=== PATIENT | female | born 1995 | race Caucasian/White ===

== ENCOUNTER 2016-06-12 08:24 | Emergency (ER) | payer OTHER ==
[~2016-06-12] VITALS: Ht 162.6 cm; Wt 139.3 kg
[~2016-06-12 08:24] MED LIST: ALBUTEROL 3 ML3 ML INH; AMBIEN (MONOGRAP5 MG PO; ARTHROTEC 75 MG1 TAB PO; BACTRIM DS 8001 TAB PO; BENADRYL 50 MG50 MG PO; BENTYL 10 MG CA10 MG PO; BENTYL20 MG PO; CIPRO 500MG TA500 MG PO; CIPRODEX OTIC7.5 ML OT; CLONAZEPAM0.5 M2 PO; CLONAZEPAM0.5 MG PO; COMPAZINE10 MG PO; CYMBALTA60 MG PO; DICLOFENAC SODI75 M2 PO; DILAUDID2 MG PO; ENBREL50 MG/1 ML SC; ENBREL50 MG/ML IM; ENDOCET 325 MG-1 TA1 PO; FIORICET 325 MG1 TAB PO; FLEXERIL10 MG PO; FLUOXETINE HCL20 MG PO; FOLIC ACID 1 MG PO; FOLIC ACID1 M1 PO; GOOD SENSE IBU200 MG PO; HUMIRA PEN40 MG/0.8 SC; HYDROCODONE/ACE1 TA1 PO; HYDROXYZINE HCL25 MG PO; IBUPROFEN600 M1 PO; IBUPROFEN800 M1 PO; IBUPROFEN800 MG PO; IMITREX50 MG PO; KETOROLAC TROME10 M1 PO; LEVAQUIN750 M1 PO; LEVSIN0.125 M1 PO; LOTRISONE CREAM15 G1 TOP; MACROBID100 MG PO; MEDROL DOSEPAK1 PAC PO; MEDROL4 M2 PO; METHOTREXATE2.5 M2 PO; MOBIC 15MG15 MG PO; MOBIC15 M1 PO; MOTRIN800 MG PO; NEXPLANON68 MG; NORCO 325 MG-51 TAB PO; NUVARING1 ICR VG; OXCARBAZEPINE150 MG PO; OXCARBAZEPINE300 MG PO; OXYCODONE HCL5 M1 PO; PANTOPRAZOLE SO40 MG PO; PERCOCET 325 MG1 TA2 PO; PERCOCET 5-3251 EACH PO; PHENERGAN12.5 M1 PO; PHENERGAN25 M1 PO; PHENERGAN25 MG PO; PREDNISONE10 MG PO; PREDNISONE50 MG PO; PRILOSEC 20MG C20 MG PO; PROAIR HFA8.5 GM INH; PROMETHAZINE25 M1 PO; PROTONIX40 M3 PO; PROZAC40 M1 PO; PROZAC40 MG PO; PYRIDIUM100 MG PO; QVAR0.04 MG/Ac INH; QVAR0.08 MG/Ac INH; QVAR8.7 G1 INH; REGLAN10 MG PO; SINGULAIR10 M1 PO; SUPRAX400 M1 PO; TESSALON PERLE100 MG PO; TOPAMAX25 MG PO; TOPIRAMATE25 MG; TRAMADOL HCL50 M1 PO; TRAZODONE HCL100 M1 PO; TRAZODONE HCL150 MG PO; TRAZODONE100 MG; TRAZODONE150 MG PO; TRILEPTAL 150M150 MG PO; TRILEPTAL300 M1 PO; TYLENOL #31 TAB PO; ULTRAM50 M1 PO; VIBRAMYCIN100 MG PO; VICODIN 300 MG-1 TAB PO; ZITHROMAX Z-PA250 M1 PO; ZOFRAN 4 MG TABL4 MG PO; ZOFRAN ODT4 M1 SL; ZOFRAN ODT4 MG PO; ZOFRAN ODT4 MG SL; ZOFRAN4 M1 PO; ZOFRAN4 M1 SL; ZOFRAN4 M2 PO; ZOFRAN4 MG PO
--- NOTE | 2016-06-12 08:52 | ED INFLUENZA/URI COMPLAINT ---
History of Present Illness General Chief Complaint: Upper Respiratory Sx/Fever Stated Complaint: NO RELIEF OF BRONCHITIS Source: patient Exam Limitations: no limitations Vital Signs & Intake/Output Vital Signs & Intake/Output Vital Signs Date Time Temp Pulse Resp B/P Pulse O2 O2 Flow FiO2 Ox Delivery Rate 06/12 1050 97.1 84 20 112/65 96 Room Air 06/12 1008 96 06/12 0829 97.7 96 16 139/85 95 Room Air Allergies Coded Allergies: cefaclor (Severe, ANAPHYLAXIS 03/25/16) Sulfa (Sulfonamide Antibiotics) (THROAT CLOSURE 03/25/16) Reconcile Medications Adalimumab (Humira Pen) 40 MG/0.8 ML PEN.IJ.KIT 1 SYR SC Q2W UNKNOWN ( Reported) Albuterol Sulfate (Proair Hfa) 0.09 MG/Actuation BARBARA 2 PUFF INH PRN ASTHMA ( Reported) Beclomethasone Dipropionate (Qvar) 0.08 MG/Actuation AER 2 PUFF INH BID ASTHMA (Reported) Clindamycin HCl 300 MG CAPSULE 1 CAP PO TID mastitis Clonazepam 0.5 MG TAB 1 TAB PO TID PRN ANXIETY (Reported) Doxycycline Hyclate (Vibramycin) 100 MG CAPSULE 1 CAP PO BID IFN FLUOXETINE HCL (Fluoxetine Hydrochloride) 40 MG CAP 1 CAP PO QAM MENTAL HEALTH (Reported) Folic Acid 1 MG TABLET 1 TAB PO BID SUPPLEMENT (Reported) Hyoscyamine (Levsin) 0.125 MG TABLET 1-2 TAB PO Q6P PRN ABDOMINAL CRAMPS Ibuprofen 800 MG TABLET 1 TAB PO TID PRN pain Ketorolac Tromethamine 10 MG TABLET 1 TAB PO Q6P PRN pain Lotrisone (Lotrisone Cream) 1 %-0.05 % CREAM..G. 1 JUANITA TOP QAMPM RASH apply to affected area(s) Meloxicam (Mobic) 15 MG TABLET 1 TAB PO DAILY PRN PAIN METHOTREXATE SODIUM (Methotrexate) 2.5 MG TAB 5 TAB PO QTUES LUPUS (Reported) Methylprednisolone. (Medrol) 4 MG TAB.DS.PK 1 DP PO AD INFLAMMATION 6 on day 1 then reduce by one tablet daily until gone Methylprednisolone. (Medrol) 4 MG TAB.DS.PK 1 DP PO AD PARESTHEISA 6 on day 1 then reduce by one tablet daily until gone Montelukast Sodium (Singulair) 10 MG TAB 1 TAB PO DAILY ASTHMA (Reported) Ondansetron (Zofran Odt) 4 MG TAB.RAPDIS 1 TAB PO Q6 PRN NAUSEA Ondansetron HCl (Zofran) 4 MG TABLET 1 TAB PO Q6-8P PRN nausea Oxcarbazepine 300 MG TAB 1 TAB PO BID MENTAL HEALTH (Reported) Oxycodone HCl 5 MG TABLET 1 TAB PO TID PRN pain Oxycodone HCl/Acetaminophen (Percocet 5-325 MG Tablet) 1 EACH TABLET 1 TAB PO TID PRN breakthrough pain Pantoprazole Sodium (Protonix) 40 MG TAB 1 TAB PO DAILY GI (Reported) Robitussin AC (Guaifenesin-Codeine Syrup) 200 MG-20 MG/10 ML LIQUID 10 ML PO Q6 PRN COUGH Tramadol HCl (Ultram) 50 MG TABLET 1-2 TAB PO TID PRN PAIN THIRTY...[id number] Tramadol HCl 50 MG TABLET 1 TAB PO BIDP PRN pain Tramadol HCl 50 MG TABLET 1 TAB PO TID PRN breakthrough pain TRAZODONE HCL (Trazodone HCl) 100 MG TAB 1-2 TAB PO QPM PRN SLEEP (Reported) Triage Note: PT STATES SHE SAW HER PCP 3 DAYS AGO AND WAS TOLD SHE HAS BRONCHITIS, CALLED HER PCP TODAY AND THEY TOLD HER TO COME TO ED TO R/O PNEMONIA Triage Nurses Notes Reviewed? yes Onset: Gradual Timing: recent history Severity: moderate No Modifying Factors: none Associated Symptoms: cough, shortness of breath : No Patient currently breastfeeds: No HPI: This is a 21-year-old female seen in the emergency department yesterday diagnosed with bronchitis and started on medications 3 days ago who presents to the ER with chief complaint of persistent shortness of breath and cough. She states that she feels slightly weak. She called her doctor and told the she wasn't feeling better and they advised her to come to the ED for evaluation. Past History Travel History Traveled to [place] past 21 day No Medical History Any Pertinent Medical History? 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 No Review of Systems Review of Systems Constitutional: Denies: chills, fever. EENTM: Reports: no symptoms. Respiratory: Reports: cough, short of breath, sputum production. Cardiovascular: Denies: chest pain. GI: Denies: abdominal pain. Genitourinary: Reports: no symptoms. Musculoskeletal: Reports: no symptoms. Skin: Reports: no symptoms. Neurological/Psychological: Reports: no symptoms. Hematologic/Endocrine: Denies: bruising, bleeding, polyuria, polydipsia. Immunologic/Allergic: Denies: splenectomy. All Other Systems: Reviewed and Negative Physical Exam Physical Exam General Appearance: well developed/nourished, alert, awake, anxious, mild distress, obese Head: atraumatic, normal appearance Eyes: Bilateral: normal appearance, PERRL, EOMI. Ears, Nose, Throat: normal ENT inspection, hearing grossly normal, Tympanic normal, pharynx normal Neck: normal inspection, supple, full range of motion Respiratory: chest non-tender, no respiratory distress, decreased breath sounds, wheezing Cardiovascular: regular rate/rhythm Peripheral Pulses: 2+ radial (R), 2+ radial (L) Gastrointestinal: soft, non-tender Neurologic/Psych: no motor/sensory deficits, awake, alert, oriented x 3 Skin: intact, normal color, warm/dry Core Measures Severe Sepsis Present: No Septic Shock Present: No Progress Differential Diagnosis: influenza, pneumonia, pharyngitis, sinusitis Plan of Care: Orders Procedure Date/time Status RT ED ORDERS 06/12 08 Active URINE 06/12 08 Complete Laboratory Tests 06/12/16 0951: Urine Test NEGATIVE duoneb, cxr ordered. odt zofran, im toradol ordered. (ABBE WU,RONI) Diagnostic Imaging: Viewed by Me: Radiology Read. Discussed w/RAD: Radiology Read. CXR Impression: EXAM TYPE: RAD - XRY-CHEST XRAY, PA AND LATERAL EXAMINATION: XR CHEST CLINICAL INFORMATION: Cough and green phlegm production. Evaluate for pneumonia. COMPARISON: 04/26/2015 TECHNIQUE: PA and lateral views of the chest were obtained. FINDINGS: Patient has a large body habitus. Lungs are symmetrically expanded and clear. There is no pulmonary consolidation, pleural effusion or hilar lymphadenopathy. No significant abnormality is noted involving the heart, lungs, mediastinum, or osseous thorax. IMPRESSION: No acute cardiopulmonary pathology. Initial ED EKG: none Departure Departure Time of Disposition: 1125 Disposition: HOME OR SELF CARE Condition: Stable Clinical Impression Primary Impression: Bronchitis Referrals: LUISA ORTEGA DO (PCP/Family) Referred to [facility] as new patient No Additional Instructions: CONTINUE YOUR ZPACK AND ALBUTEROL INHALERS. TAKE THE MEDROL DOSE PACK DIRECTED. FOLLOW UP WITH YOUR DOCTOR IN THE OFFICE. RETURN TO THE ER NEEDED. Departure Forms: Customer Survey General Discharge Information Prescriptions: Current Visit Scripts Methylprednisolone. (Medrol) 1 DP PO AD #1 DP 6 on day 1 then reduce by one tablet daily until gone Ondansetron (Zofran Odt) 1 TAB PO Q6 PRN NAUSEA #20 TAB Robitussin AC (Guaifenesin-Codeine Syrup) 10 ML PO Q6 PRN COUGH #150 ML
[2016-06-12 10:50] VITALS: BP 112/65
--- NOTE | 2016-06-12 11:02 | RADIOLOGY REPORT ---
EXAMINATION: XR CHEST CLINICAL INFORMATION: Cough and green phlegm production. Evaluate for pneumonia. COMPARISON: 04/26/2015 TECHNIQUE: PA and lateral views of the chest were obtained. FINDINGS: Patient has a large body habitus. Lungs are symmetrically expanded and clear. There is no pulmonary consolidation, pleural effusion or hilar lymphadenopathy. No significant abnormality is noted involving the heart, lungs, mediastinum, or osseous thorax. IMPRESSION: No acute cardiopulmonary pathology.
[2016-06-12] MEDS ORDERED: MEDROL4 M2 PO (11:28)
[2016-06-12] MEDS ORDERED: GUAIFENESIN-COD10 ML PO (11:36)
[2016-06-12] MEDS ORDERED: ZOFRAN ODT4 M1 PO (11:36)
== END 2016-06-12 11:39 ==
LOC: ERH 08:24
DX: J40 Bronchitis, not specified as acute or chronic (principal)
CPT/HCPCS: 1263; 81025; 96372; J1885; J3101

== ENCOUNTER 2016-06-20 18:44 | Emergency (ER) | payer OTHER ==
[~2016-06-20 18:44] MED LIST changes: +GUAIFENESIN-COD10 ML PO; +ZOFRAN ODT4 M1 PO
[2016-06-20 19:13] VITALS: BP 140/78
--- NOTE | 2016-06-20 19:15 | ED SKIN/ALLERGY COMPLAINT ---
History of Present Illness General Chief Complaint: General Adult Stated Complaint: PER PT "PAIN IN L BREAST/ DISCHARGE" X 2 DAYS Source: patient, old records Exam Limitations: no limitations Vital Signs & Intake/Output Vital Signs & Intake/Output Vital Signs Date Time Temp Pulse Resp B/P Pulse O2 O2 Flow FiO2 Ox Delivery Rate 06/20 1912 97.2 73 22 140/78 97 Allergies Coded Allergies: cefaclor (Severe, ANAPHYLAXIS 03/25/16) Sulfa (Sulfonamide Antibiotics) (THROAT CLOSURE 03/25/16) Reconcile Medications Adalimumab (Humira Pen) 40 MG/0.8 ML PEN.IJ.KIT 1 SYR SC Q2W UNKNOWN ( Reported) Albuterol Sulfate (Proair Hfa) 0.09 MG/Actuation BARBARA 2 PUFF INH PRN ASTHMA ( Reported) Beclomethasone Dipropionate (Qvar) 0.08 MG/Actuation AER 2 PUFF INH BID ASTHMA (Reported) Clindamycin HCl 300 MG CAPSULE 1 CAP PO TID mastitis Clonazepam 0.5 MG TAB 1 TAB PO TID PRN ANXIETY (Reported) Doxycycline Hyclate (Vibramycin) 100 MG CAPSULE 1 CAP PO BID IFN FLUOXETINE HCL (Fluoxetine Hydrochloride) 40 MG CAP 1 CAP PO QAM MENTAL HEALTH (Reported) Folic Acid 1 MG TABLET 1 TAB PO BID SUPPLEMENT (Reported) Hyoscyamine (Levsin) 0.125 MG TABLET 1-2 TAB PO Q6P PRN ABDOMINAL CRAMPS Ibuprofen 800 MG TABLET 1 TAB PO TID PRN pain Ketorolac Tromethamine 10 MG TABLET 1 TAB PO Q6P PRN pain Lotrisone (Lotrisone Cream) 1 %-0.05 % CREAM..G. 1 JUANITA TOP QAMPM RASH apply to affected area(s) Meloxicam (Mobic) 15 MG TABLET 1 TAB PO DAILY PRN PAIN METHOTREXATE SODIUM (Methotrexate) 2.5 MG TAB 5 TAB PO QTUES LUPUS (Reported) Methylprednisolone. (Medrol) 4 MG TAB.DS.PK 1 DP PO AD INFLAMMATION 6 on day 1 then reduce by one tablet daily until gone Methylprednisolone. (Medrol) 4 MG TAB.DS.PK 1 DP PO AD PARESTHEISA 6 on day 1 then reduce by one tablet daily until gone Montelukast Sodium (Singulair) 10 MG TAB 1 TAB PO DAILY ASTHMA (Reported) Ondansetron (Zofran Odt) 4 MG TAB.RAPDIS 1 TAB PO Q6 PRN NAUSEA Ondansetron HCl (Zofran) 4 MG TABLET 1 TAB PO Q6-8P PRN nausea Oxcarbazepine 300 MG TAB 1 TAB PO BID MENTAL HEALTH (Reported) Oxycodone HCl 5 MG TABLET 1 TAB PO TID PRN pain Oxycodone HCl/Acetaminophen (Percocet 5-325 MG Tablet) 1 EACH TABLET 1 TAB PO TID PRN breakthrough pain Pantoprazole Sodium (Protonix) 40 MG TAB 1 TAB PO DAILY GI (Reported) Robitussin AC (Guaifenesin-Codeine Syrup) 200 MG-20 MG/10 ML LIQUID 10 ML PO Q6 PRN COUGH Tramadol HCl (Ultram) 50 MG TABLET 1-2 TAB PO TID PRN PAIN THIRTY...[id number] Tramadol HCl 50 MG TABLET 1 TAB PO BIDP PRN pain Tramadol HCl 50 MG TABLET 1 TAB PO TID PRN breakthrough pain TRAZODONE HCL (Trazodone HCl) 100 MG TAB 1-2 TAB PO QPM PRN SLEEP (Reported) Triage Note: PER PT DRAINAGE REDNESS AND WARMTH TO L BREAST, TENDER TO PALPATION X 2 DAYS, NO CHANCE OF LMP 2 WEEKS AGO. Triage Nurses Notes Reviewed? yes Onset: Abrupt Duration: day(s): (4), constant Timing: recent history Severity: mild, moderate Severity Numbers: 4 Possible Factors: no cause identified Associated Symptoms: denies : No Patient currently breastfeeds: No HPI: 21-year-old female presents emergency room complaining of left breast swelling redness and pain associated with discharge from her nipple for the past 4 days. Symptoms began progressing worse. She is not actively breast-feeding no fever no chills she has not taken anything for her symptoms. Pain is worse with light palpation. She is also carefully symptoms until that today. No recent trauma or injury. she denies any bleeding she denies feeling any mass or nodules in her breasts. She denies any right breast symptoms. The patient herself denies personal history or family history of breast cancer (JUDY BAKER,MAI) Past History Travel History Traveled to [place] past 21 day No Medical History Any Pertinent Medical History? 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 No (MAI KIRBY) Review of Systems Review of Systems Constitutional: Reports: see HPI. All Other Systems: Reviewed and Negative Comments Review of systems: See HPI, All other systems negative. Constitutional, no chills no fever, no malaise HEENT: no sore throat no congestion, no ear pain Cardiovascular: No chest pain , no palpitation Skin, see hpi Respiratory: No dyspnea no cough no sputum GI: No nausea no vomiting, no diarrhea, : No dysuria Muscle skeletal: No joint pain, no joint swelling, no back pain, no neck pain, Neurologic: , no headache Psych: No stress Heme/endocrine: No bruising no bleeding Immunology: No lymphadenopathy (MAI KIRBY) Physical Exam Physical Exam General Appearance: well developed/nourished, alert, awake Comments: Well-developed well-nourished patient in no apparent distress. HEENT: Atraumatic, extraocular motion intact Neck: Supple, FROM Back: FROM Cardiovascular: Regular rate and rhythms no murmurs rubs or gallops, Respiratory: Chest nontender.There were no bony deformities, no asymmetry. No respiratory distress. Patient speaking in full complete sentences. Breath sounds clear to auscultation bilaterally: NO W/R/R Extremities: full range of motion Neuro: Alert and oriented x3 Skin: Warm & dry; mild erythema surrounding the left areola there is no induration no fluctuance no discharge elicited with palpation mild tenderness over the left breast Psych: Mood affect normal, normal memory normal judgment. (MAI KIRBY) Progress Differential Diagnosis: abscess/cellulitis, contact dermatitis, drug reaction, erythema multiforme, mastitis Plan of Care: Current Medications Sig/Butch Start time Last Medication Dose Stop Time Status Admin Clindamycin 300 MG ONCE ONE 06/20 1929 UNVr (Cleocin 150MG Cap) 06/20 1930 Tramadol HCl 50 MG ONCE ONE 06/20 1929 UNVr (Ultram) 06/20 1930 Patient medicated clindamycin and tramadol she'll follow-up with her primary care or carton forming machine adjuster least week for wound check. She'll return anytime sooner with any concerns she feels comfortable plan clear discharge (MAI KIRBY) Departure Departure Time of Disposition: 1919 Disposition: HOME OR SELF CARE Condition: Stable Clinical Impression Primary Impression: Mastitis Referrals: LUISA ORTEGA DO (PCP/Family) Additional Instructions: Follow-up with your primary care physician or carton forming machine adjuster this week for wound check. Tramadol for breakthrough pain clindamycin as directed these prescriptions were sent to your [facility] pharmacy. Departure Forms: Customer Survey General Discharge Information Prescriptions: Current Visit Scripts Clindamycin HCl 1 CAP PO TID #30 CAP Tramadol HCl 1 TAB PO TID PRN breakthrough pain #10 TAB (MAI KIRBY) PA/DIRECT SERVICE WORKER Co-Sign Statement Statement: ED Attending supervision documentation- [] I saw and evaluated the patient. I have also reviewed all the pertinent lab results and diagnostic results. I agree with the findings and the plan of care as documented in the PA's/DIRECT SERVICE WORKER's documentation. [X] I have reviewed the ED Record and agree with the PA's/DIRECT SERVICE WORKER's documentation. [] Additions or exceptions (if any) to the PAs/DIRECT SERVICE WORKER's note and plan are summarized below: [] (GERMÁN WU,JOSELYN Caro)
[2016-06-20] MEDS ORDERED: TRAMADOL HCL50 M1 PO (19:21)
[2016-06-20] MEDS ORDERED: CLINDAMYCIN HC300 M1 PO (19:21)
== END 2016-06-20 19:36 ==
LOC: ERH 18:44
DX: N61.0 Mastitis without abscess (principal)

== ENCOUNTER 2016-06-22 17:23 | Emergency (ER) | payer OTHER ==
[~2016-06-22] VITALS: Ht 162.6 cm; Wt 137.9 kg
[~2016-06-22 17:23] MED LIST changes: +CLINDAMYCIN HC300 M1 PO
--- NOTE | 2016-06-22 17:57 | ED GI/GU/ABDOMINAL COMPLAINT ---
History of Present Illness General Chief Complaint: Upper Respiratory Sx/Fever Stated Complaint: NAUSEA AND VOMITTING Source: patient Exam Limitations: no limitations Allergies Coded Allergies: cefaclor (Severe, ANAPHYLAXIS 03/25/16) Sulfa (Sulfonamide Antibiotics) (THROAT CLOSURE 03/25/16) Triage Note: PT HAVING N/V FOR A COUPLE OF DAYS WITH STOMACH PAIN Triage Nurses Notes Reviewed? yes ? N Is pt currently ? No HPI: This patient is a 21-year-old female with a past medical history including lupus , multiple ovarian cysts requiring surgery, and recent diagnosis of mastitis currently being treated with outpatient clindamycin who presented to the emergency department today for evaluation of abdominal pain and nausea vomiting. The patient reported that she was seen here in the emergency department on Monday and was diagnosed with mastitis. She was prescribed clindamycin. She took one dose of clindamycin Monday night. The patient reported that prior to her diagnosis on Monday, she was feeling nauseous and, "not well." However, on Monday she started feeling worse with increased nausea. She reported that she has vomited twice over the last 2 days. She reported that she has not been able to keep any food or drink down. She has been unable to take any more doses of her vacation. She has not been able to take any medication for pain. The patient has been having 8 out of 10 to 10 out of 10 abdominal pain, "over my belly." The patient denied any radiation of the pain. She reported that the pain is sharp and cramping. The patient reported intermittent fevers up to 101 F. However, she reported that she does get intermittent fevers due to her lupus. The patient reported that she recently lost approximately 22 pounds since she has been on a diet prior to a gastric bypass that is scheduled for her at the end of July. The patient reported that she last urinated yesterday, but denied any urinary burning, urgency, frequency, or blood in the urine. She denied any constipation or diarrhea. Patient denied any chest pain. She reported that it does feel difficult to take a deep breath. She has history of asthma, but denied any wheezing or shortness of breath. (BERTIN MANZO,REJI) Vital Signs & Intake/Output Vital Signs & Intake/Output ED Intake and Output 06/23 0000 06/22 1200 Intake Total 1000 Output Total Balance 1000 Intake, IV 1000 Patient 304 lb Weight Reconcile Medications Adalimumab (Humira Pen) 40 MG/0.8 ML PEN.IJ.KIT 1 SYR SC Q2W UNKNOWN ( Reported) Albuterol Sulfate (Proair Hfa) 0.09 MG/Actuation BARBARA 2 PUFF INH PRN ASTHMA ( Reported) Beclomethasone Dipropionate (Qvar) 0.08 MG/Actuation AER 2 PUFF INH BID ASTHMA (Reported) Clindamycin HCl 300 MG CAPSULE 1 CAP PO TID mastitis Clonazepam 0.5 MG TAB 1 TAB PO TID PRN ANXIETY (Reported) Doxycycline Hyclate (Vibramycin) 100 MG CAPSULE 1 CAP PO BID IFN FLUOXETINE HCL (Fluoxetine Hydrochloride) 40 MG CAP 1 CAP PO QAM MENTAL HEALTH (Reported) Folic Acid 1 MG TABLET 1 TAB PO BID SUPPLEMENT (Reported) Hyoscyamine (Levsin) 0.125 MG TABLET 1-2 TAB PO Q6P PRN ABDOMINAL CRAMPS Ibuprofen 800 MG TABLET 1 TAB PO TID PRN pain Ketorolac Tromethamine 10 MG TABLET 1 TAB PO Q6P PRN pain Lotrisone (Lotrisone Cream) 1 %-0.05 % CREAM..G. 1 JUANITA TOP QAMPM RASH apply to affected area(s) Meloxicam (Mobic) 15 MG TABLET 1 TAB PO DAILY PRN PAIN METHOTREXATE SODIUM (Methotrexate) 2.5 MG TAB 5 TAB PO QTUES LUPUS (Reported) Methylprednisolone. (Medrol) 4 MG TAB.DS.PK 1 DP PO AD INFLAMMATION 6 on day 1 then reduce by one tablet daily until gone Methylprednisolone. (Medrol) 4 MG TAB.DS.PK 1 DP PO AD PARESTHEISA 6 on day 1 then reduce by one tablet daily until gone Metoclopramide HCl (Reglan) 10 MG TABLET 1 TAB PO 4 TIMES/DAY PRN nausea 30 minutes before meals and bedtime Montelukast Sodium (Singulair) 10 MG TAB 1 TAB PO DAILY ASTHMA (Reported) Nitrofurantoin Monohyd/M-Cryst (Macrobid 100 MG Capsule) 100 MG CAPSULE 1 CAP PO BID uti with food Ondansetron (Zofran Odt) 4 MG TAB.RAPDIS 1 TAB PO Q6 PRN NAUSEA Ondansetron HCl (Zofran) 4 MG TABLET 1 TAB PO Q6-8P PRN nausea Oseltamivir Phosphate (Tamiflu) 30 MG CAPSULE 2 CAP PO BID influenza a Oxcarbazepine 300 MG TAB 1 TAB PO BID MENTAL HEALTH (Reported) Oxycodone HCl 5 MG TABLET 1 TAB PO TID PRN pain Oxycodone HCl/Acetaminophen (Percocet 5-325 MG Tablet) 1 EACH TABLET 1 TAB PO TID PRN breakthrough pain Pantoprazole Sodium (Protonix) 40 MG TAB 1 TAB PO DAILY GI (Reported) Robitussin AC (Guaifenesin-Codeine Syrup) 200 MG-20 MG/10 ML LIQUID 10 ML PO Q6 PRN COUGH Tramadol HCl (Ultram) 50 MG TABLET 1-2 TAB PO TID PRN PAIN THIRTY...[id number] Tramadol HCl 50 MG TABLET 1 TAB PO BIDP PRN pain Tramadol HCl 50 MG TABLET 1 TAB PO TID PRN breakthrough pain TRAZODONE HCL (Trazodone HCl) 100 MG TAB 1-2 TAB PO QPM PRN SLEEP (Reported) (GERMÁN WU,JOSELYN Caro) Past History Travel History Traveled to [place] past 21 day No Medical History Any Pertinent Medical History? see below for history Neurological: migraine EENT: L EYE BLIND Cardiovascular: NONE Respiratory: asthma Gastrointestinal: GERD Hepatic: NONE Renal: NONE Musculoskeletal: psoariatic arthritis, LUPUS MRSA IN WOUND Psychiatric: anxiety, depression Endocrine: NONE Blood Disorders: NONE Cancer(s): NONE LACE SEWER/Reproductive: OVARIAN CYST POLYCYSTIC OVARY SYNDROME History of MRSA: Yes History of VRE: No History of CDIFF: No Surgical History Surgical History: MULT ABD SX OVARIAN CYST L AXILLARY MOLE REMOVED Psychosocial History Who do you live with Mother Services at Home None What is your primary language Danish Tobacco Use: Never used ETOH Use: occasional use Illicit Drug Use: denies illicit drug use Family History Family History, If Any: FATHER FH: diabetes mellitus MOTHER FH: breast cancer Hx Contributory? No (REJI DENTON PA-C) Review of Systems Review of Systems Constitutional: Reports: see HPI. EENTM: Reports: no symptoms. Respiratory: Reports: see HPI. Cardiovascular: Reports: no symptoms. GI: Reports: see HPI. Genitourinary: Reports: no symptoms. Musculoskeletal: Reports: no symptoms. Skin: Reports: no symptoms. Neurological/Psychological: Reports: no symptoms. All Other Systems: Reviewed and Negative (REJI DENTON PA-C) Physical Exam Physical Exam Gastrointestinal: normal bowel sounds, soft, obese, nondistended, no organomegaly, no rebound or guarding, diffusely tender to palpation. negative rovsing sign, negative murphys sign, negative psoas sign Comments: Well-developed well-nourished person in no acute distress HEENT: Normal EENT exam, head normocephalic, moist mucous membranes Neck: Supple, no lymphadenopathy Back: Normal inspection. No CVA tenderness Cardiovascular: Regular rate and rhythm with no murmurs, rubs, or gallops Respiratory: Chest nontender. No respiratory distress. Breath sounds clear to auscultation bilaterally with no wheezes, rales, rhonchi. No diminished breath sounds Extremity: Normal and equal pulses Neuro: Alert oriented x3, cranial nerves II through XII grossly intact. Skin: No appreciable rash on exposed skin, skin is warm and dry. Psych: Mood and affect is normal Core Measures ACS in differential dx? No Severe Sepsis Present: No Septic Shock Present: No (REJI DENTON PA-C) Progress Differential Diagnosis: AMI, appendicitis, biliary colic, bowel obstruction, colon cancer, cholecystitis, diverticulitis, ectopic , endometritis, gastritis, hepatitis, ischemic bowel, inflamm bowel dis, intrauterine , kidney stone, ovarian cyst, ovarian torsion, pancreatitis, PID/cervicitis, PUD/ GERD, threatened AB, UTI/pyelo, influenza, medication reaction, c. diff, gastroenteritis Initial ED EKG: none Comments: 06/22/2016 7:56:23 PM: The patient still is reporting pain. Also nausea is returning. Updated patient on laboratory studies. Positive for influenza A. UTI based on urinalysis. (REJI DENTON PA-C) Plan of Care: Orders Procedure Date/time Status VIRAL CULTURE 06/22 1835 Active Departure Departure Disposition: HOME OR SELF CARE Condition: Stable Clinical Impression Primary Impression: UTI (urinary tract infection) Qualifiers: Urinary tract infection type: site unspecified Hematuria presence: without hematuria Qualified Code: N39.0 - Urinary tract infection, site not specified Secondary Impressions: Influenza A Referrals: LUISA ORTEGA DO (PCP/Family) Additional Instructions: Continue to take previously prescribed Clindamycin as directed. Take Macrobid as prescribed for UTI. Take Reglan as prescribed for nausea. Take Tamiflu as prescribed for influenza. Rest. Be sure to stay hydrated. Follow-up with primary care physician. Return for any worsening symptoms or concerns. Departure Forms: Customer Survey General Discharge Information Prescriptions: Current Visit Scripts Metoclopramide HCl (Reglan) 1 TAB PO 4 TIMES/DAY PRN nausea #16 TAB 30 minutes before meals and bedtime Nitrofurantoin Monohyd/M-Cryst (Macrobid 100 MG Capsule) 1 CAP PO BID #14 CAP with food Oseltamivir Phosphate (Tamiflu) 2 CAP PO BID #20 CAP (REJI DENTON PA-C) PA/SALON MANAGER Co-Sign Statement Statement: ED Attending supervision documentation- [] I saw and evaluated the patient. I have also reviewed all the pertinent lab results and diagnostic results. I agree with the findings and the plan of care as documented in the PA's/SALON MANAGER's documentation. [X] I have reviewed the ED Record and agree with the PA's/SALON MANAGER's documentation. [] Additions or exceptions (if any) to the PAs/SALON MANAGER's note and plan are summarized below: [] (GERMÁN WU,JOSELYN Caro) prescribed for UTI. Take Reglan as prescribed for nausea. Take Tamiflu as prescribed for influenza. Rest. Be sure to stay hydrated. Follow-up with primary care physician. Return for any worsening symptoms or concerns. Departure Forms: Customer Survey General Discharge Information Prescriptions: Current Visit Scripts Metoclopramide HCl (Reglan) 1 TAB PO 4 TIMES/DAY PRN nausea #16 TAB 30 minutes before meals and bedtime Nitrofurantoin Monohyd/M-Cryst (Macrobid 100 MG Capsule) 1 CAP PO BID #14 CAP with food Oseltamivir Phosphate (Tamiflu) 2 CAP PO BID #20 CAP (REJI DENTON PA-C) PA/SALON MANAGER Co-Sign Statement Statement: ED Attending supervision documentation- [] I saw and evaluated the patient. I have also reviewed all the pertinent lab results and diagnostic results. I agree with the findings and the plan of care as documented in the PA's/SALON MANAGER's documentation. [X] I have reviewed the ED Record and agree with the PA's/SALON MANAGER's documentation. [] Additions or exceptions (if any) to the PAs/SALON MANAGER's note and plan are summarized below: [] (GERMÁN WU,JOSELYN Caro)
[2016-06-22 18:50] LABS: ABSOLUTE BASOPHIL COUNT 0 /CUMM (0.0-0.2); ABSOLUTE EOSINOPHIL COUNT 0.2 /CUMM (0.0-0.7); ABSOLUTE GRANULOCYTE CT 6.3 /CUMM (1.4-6.5); ABSOLUTE LYMPH COUNT 1.6 /CUMM (1.2-3.4); ABSOLUTE MONOCYTE COUNT 0.7 /CUMM (0.10-0.60); BASOPHIL % 0.4 % (0.0-2.0); EOSINOPHIL % 2.1 % (0-5); GRANULOCYTE % 71.3 % (42.2-75.2); HEMATOCRIT 39.3 % (37-47); MEAN CORPUSCULAR HGB 27.8 PG (27.0-31.0); MEAN CORPUSCULAR HGB CONC 33.1 G/DL (33.0-37.0); MEAN CORPUSCULAR VOLUME 83.9 FL (81.0-99.0); MEAN PLATELET VOLUME 7.8 FL (7.4-10.4); PLATELET COUNT 255 /CUMM (130-400); RBC DISTRIBUTION WIDTH 15.1 % (11.5-14.5); RED BLOOD CELL CT 4.68 /CUMM (4.20-5.40); WHITE BLOOD CELL COUNT 8.8 /CUMM (4.8-10.8)
[2016-06-22] MEDS ORDERED: TAMIFLU30 M1 PO (20:26)
[2016-06-22] MEDS ORDERED: MACROBID 100 M100 MG PO (20:26)
[2016-06-22] MEDS ORDERED: REGLAN10 M1 PO (20:26)
[2016-06-22 20:54] VITALS: BP 122/80
== END 2016-06-22 21:39 ==
LOC: ERH 17:23
PROVIDERS: Physician Assistant
DX: J10.1 Influenza due to other identified influenza virus with other respiratory manifestations (principal); N39.0 Urinary tract infection, site not specified
CPT/HCPCS: 81001; 81025; 87086; 87804; 87804-59; 96374; 96375; J1885; J2405; J2765

== ENCOUNTER 2016-07-01 14:59 | Emergency (ER) | payer OTHER ==
[~2016-07-01] VITALS: Ht 162.6 cm; Wt 137.9 kg
[~2016-07-01 14:59] MED LIST changes: +MACROBID 100 M100 MG PO; +REGLAN10 M1 PO; +TAMIFLU30 M1 PO
--- NOTE | 2016-07-01 17:21 | ED GENERAL ADULT ---
History of Present Illness General Chief Complaint: Upper Respiratory Sx/Fever Stated Complaint: PT STATES"I HAVE THE FLU/GETTING WORSE/SEEN HERE" Source: patient, family, old records Exam Limitations: no limitations Vital Signs & Intake/Output Vital Signs & Intake/Output Vital Signs Date Time Temp Pulse Resp B/P Pulse O2 O2 Flow FiO2 Ox Delivery Rate 07/01 1906 99.3 96 20 128/76 07/01 1736 Room Air 07/01 1520 98.6 98 16 150/94 100 Room Air Allergies Coded Allergies: cefaclor (Severe, ANAPHYLAXIS 03/25/16) Sulfa (Sulfonamide Antibiotics) (THROAT CLOSURE 03/25/16) Reconcile Medications Adalimumab (Humira Pen) 40 MG/0.8 ML PEN.IJ.KIT 1 SYR SC Q2W UNKNOWN ( Reported) Albuterol Sulfate (Proair Hfa) 0.09 MG/Actuation BARBARA 2 PUFF INH PRN ASTHMA ( Reported) Beclomethasone Dipropionate (Qvar) 0.08 MG/Actuation AER 2 PUFF INH BID ASTHMA (Reported) Clonazepam 0.5 MG TAB 1 TAB PO TID PRN ANXIETY (Reported) FLUOXETINE HCL (Fluoxetine Hydrochloride) 40 MG CAP 1 CAP PO QAM MENTAL HEALTH (Reported) Folic Acid 1 MG TABLET 1 TAB PO BID SUPPLEMENT (Reported) Hyoscyamine (Levsin) 0.125 MG TABLET 1 TAB PO Q4 PRN ABDOMINAL DISCOMFORT METHOTREXATE SODIUM (Methotrexate) 2.5 MG TAB 5 TAB PO QTUES LUPUS (Reported) Montelukast Sodium (Singulair) 10 MG TAB 1 TAB PO DAILY ASTHMA (Reported) Oxcarbazepine 300 MG TAB 1 TAB PO BID MENTAL HEALTH (Reported) Pantoprazole Sodium (Protonix) 40 MG TAB 1 TAB PO DAILY GI (Reported) Phenazopyridine HCl (Pyridium) 100 MG TABLET 1 TAB PO TID PRN DYSURIA Robitussin AC (Guaifenesin-Codeine Syrup) 200 MG-20 MG/10 ML LIQUID 10 ML PO Q6 PRN COUGH TRAZODONE HCL (Trazodone HCl) 100 MG TAB 1-2 TAB PO QPM PRN SLEEP (Reported) Triage Note: PT TO ED FOR BURNING WITH URINATION X 10 DAYS, STATES SHE WAS ON CLINDAMYCIN AND DOXY WITH NO RELIEF. LAST DOSE OF ABX TODAY. SEEN HERE FOR SAME LAST MONDAY, REPORTS SHE IS ALSO HAVING EXACERBATION OF HER CHRONIC ABD PAIN Triage Nurses Notes Reviewed? yes Onset: Gradual Duration: week(s): (1) Timing: recent history Injury Environment: home Severity: moderate : No Patient currently breastfeeds: No HPI: Patient is a 21-year-old female with history of chronic abdominal pain presenting to the emergency department with chief complaint of lower abdominal pain, pressure, increased urinary frequency and urgency and burning with urination nothing going on for 1 week. She reports that the pain radiates to the back. Remote history of kidney stone. Positive nausea but no vomiting. Denies diarrhea. Should pursue seen here for similar symptoms about a week ago. She was put on doxycycline for urinary tract infection. She reports that is not helping. She also reports that she had a flu swab done the last time she was here and was told it was positive although the viral culture came back negative. Positive malaise. Denies recent travel. She saw her gluing machine operator a few weeks ago. She scheduled for a gastric bypass surgeryin the several months. (ROSA CABRERA) Past History Travel History Traveled to [place] past 21 day No Medical History Any Pertinent Medical History? 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 No (ROSA CABRERA) Review of Systems Review of Systems Constitutional: Reports: see HPI, malaise. Comments Review of systems: See HPI, All other systems negative. Constitutional, no fever or weight loss HEENT: No visual changes no sore throat no congestion Cardiovascular: No chest pain ,palpitation , orthopnea or ankle swelling Skin, no jaundice no rashes Respiratory: No dyspnea cough sputum or hemoptysis GI: no vomiting no diarrhea : No dysuria No hematuria Muscle skeletal: no neck pain, Neurologic: No numbness no confusion Psych: No increased stress anxiety or depression,. Heme/endocrine: No bruising no bleeding no polyuria or polydipsia Immunology: No splenectomy or history of AIDS (ROSA CABRERA) Physical Exam Physical Exam General Appearance: well developed/nourished, no apparent distress, alert, awake , comfortable, obese Comments: Well-developed well-nourished person in no acute distress HEENT: Pupils equally round and reactive to light and accommodation. Nose is atraumatic. External auditory canal and Tympanic membranes clear. Pharynx normal. No swelling or edema. Moist oral mucosa. Neck: Normal inspection Back: Nontender, no CVA tenderness. Full range of motion Cardiovascular: Regular rate and rhythms no murmurs rubs or gallops, normal JVP Respiratory: Chest nontender. No respiratory distress.breath sounds clear to auscultation bilaterally Abdomen: Soft, obese, tender to palpation over bilateral flanks. No guarding or rebound tenderness. Nondistended, no appreciable organomegaly. Normal bowel sounds. No ascites Extremity: No edema Neuro: Alert oriented x3 Skin: No appreciable rash on exposed skin, skin is warm and dry. Psych: Mood and affect is normal, memory and judgment is normal. Core Measures ACS in differential dx? No CVA/TIA Diagnosis: No Severe Sepsis Present: No Septic Shock Present: No (ROSA CABRERA) Progress Differential Diagnoses I considered the following diagnoses in my evaluation of the patient: Electrolyte abnormality, dehydration, gastritis, kidney stone, UTI, pyelonephritis, chronic abdominal pain, influenza Plan of Care: Orders Procedure Date/time Status Add-on Test (ER Only) 07/01 1902 Active COMPREHENSIVE METABOLIC PANEL 07/01 172 Complete CBC WITHOUT DIFFERENTIAL 07/01 172 Complete CULTURE,URINE 07/01 1523 Active URINALYSIS 07/01 1523 Complete Current Medications Sig/Butch Start time Last Medication Dose Stop Time Status Admin Hyoscyamine 0.125 MG ONCE ONE 07/01 1914 AC (Levsin) 07/01 1915 Laboratory Tests 07/01/16 1755: Anion Gap 11, Estimated GFR > 60, BUN/Creatinine Ratio 14.3, Glucose 89, Calcium 9.2, Total Bilirubin 0.5, AST 21, ALT 42, Alkaline Phosphatase 88, Total Protein 7.8, Albumin 4.4, Globulin 3.4, Albumin/Globulin Ratio 1.3, CBC w Diff NO MAN DIFF REQ, RBC 4.49, MCV 84.2, MCH 28.2, RDW 15.0 H, MPV 7.7, Gran % 73.4, Lymphocytes % 17.4 L, Monocytes % 6.8, Eosinophils % 2.0, Basophils % 0.4, Absolute Granulocytes 6.4, Absolute Lymphocytes 1.5, Absolute Monocytes 0.6, Absolute Eosinophils 0.2, Absolute Basophils 0, PUBS MCHC 33.5 07/01/16 1528: Urinalysis LIGHT H, Urine Color YEL, Urine Clarity HAZY H, Urine pH 7.5, Ur Specific [place] 1.020, Urine Protein NEG, Urine Ketones NEG, Urine Nitrite NEG, Urine Bilirubin NEG, Urine Urobilinogen 0.2, Ur Leukocyte Esterase NEG, Ur Microscopic SEDIMENT EXAMINED, Urine RBC 3-5, Urine WBC RARE, Ur Epithelial Cells MANY H, Urine Hemoglobin MOD H, Urine Glucose NEG Microbiology 07/01 1528 URINE ROUT: Urine Culture - RECD Diagnostic Imaging: Viewed by Me: Radiology Read. Discussed w/RAD: Radiology Read. Radiology Impression: constipation, PATIENT: RADHA HODGES PRESENT AGE: 21 PATIENT ACCOUNT NO: [id number] : 94 LOCATION: [facility] ORDERING PHYSICIAN: ROSA BAKER SERVICE DATE: 07/01/16 EXAM TYPE: RAD - XRY-KIDNEYS, URETERS, BLADDER EXAMINATION: XR KIDNEYS, URETER, BLADDER CLINICAL INDICATION: Flank pain, question kidney stone COMPARISON: CT abdomen and pelvis 03/03/2016 TECHNIQUE: KUB FINDINGS: There is dense stool throughout the colon which somewhat limits evaluation. The renal shadows are not well visualized. No definite radiodense renal stone in the region of the exact location of the renal shadows. Size osseous structures appear grossly unremarkable. IMPRESSION: Limited study for evaluation of renal stone. Large volume of stool noted throughout the colon. DICTATED BY: CAN ONEILL MD DATE/TIME DICTATED:07/01/161750 CT SCAN TECHNOLOGIST:DAVID DATE/TIME TRANSCRIBED:07/01/161750 CONFIDENTIAL, DO NOT COPY WITHOUT APPROPRIATE AUTHORIZATION. <Electronically signed in Other Vendor System> SIGNED BY: CAN ONEILL MD 07/01/161754 Initial ED EKG: none (ROSA CABRERA) Departure Departure Time of Disposition: 1899 Disposition: HOME OR SELF CARE Condition: Stable Clinical Impression Primary Impression: Chronic abdominal pain Secondary Impressions: Constipation Qualifiers: Constipation type: unspecified constipation type Qualified Code: K59.00 - Constipation, unspecified Dysuria Referrals: LUISA ORTEGA DO (PCP/Family) Additional Instructions: Follow-up with your primary care physician as well as her gluing machine operator called to make an appointment. Take [id number] stool softeners for constipation. Take Pyridium for urinary frequency and burning. Increase fluids. Take Levsin as prescribed for abdominal discomfort. Take previously prescribed nausea medication as prescribed. Return for worsening symptoms or concerns. PATIENT: RADHA HODGES PRESENT AGE: 21 PATIENT ACCOUNT NO: [id number] : 94 LOCATION: [facility] ORDERING PHYSICIAN: ROSA BAKER SERVICE DATE: 07/01/16 EXAM TYPE: RAD - XRY-KIDNEYS, URETERS, BLADDER EXAMINATION: XR KIDNEYS, URETER, BLADDER CLINICAL INDICATION: Flank pain, question kidney stone COMPARISON: CT abdomen and pelvis 03/03/2016 TECHNIQUE: KUB FINDINGS: There is dense stool throughout the colon which somewhat limits evaluation. The renal shadows are not well visualized. No definite radiodense renal stone in the region of the exact location of the renal shadows. Size osseous structures appear grossly unremarkable. IMPRESSION: Limited study for evaluation of renal stone. Large volume of stool noted throughout the colon. DICTATED BY: CAN ONEILL MD DATE/TIME DICTATED:07/01/161750 CT SCAN TECHNOLOGIST:DAVID DATE/TIME TRANSCRIBED:07/01/161750 CONFIDENTIAL, DO NOT COPY WITHOUT APPROPRIATE AUTHORIZATION. <Electronically signed in Other Vendor System> SIGNED BY: CAN ONEILL MD 07/01/161754 Departure Forms: Customer Survey D/C INS-APPENDICITIS EXCLUSION General Discharge Information Prescriptions: Current Visit Scripts Phenazopyridine HCl (Pyridium) 1 TAB PO TID PRN DYSURIA #10 TAB Hyoscyamine (Levsin) 1 TAB PO Q4 PRN ABDOMINAL DISCOMFORT #40 TAB (ROSA CABRERA) PA/CYLINDER CHECKER Co-Sign Statement Statement: ED Attending supervision documentation- [] I saw and evaluated the patient. I have also reviewed all the pertinent lab results and diagnostic results. I agree with the findings and the plan of care as documented in the PA's/CYLINDER CHECKER's documentation. [X] I have reviewed the ED Record and agree with the PA's/CYLINDER CHECKER's documentation. [] Additions or exceptions (if any) to the PAs/CYLINDER CHECKER's note and plan are summarized below: [] (ABBE WU,RONI) Critical Care Note Critical Care Note Critical Care Time: non-applicable (ROSA CABRERA)
--- NOTE | 2016-07-01 17:55 | RADIOLOGY REPORT ---
EXAMINATION: XR KIDNEYS, URETER, BLADDER CLINICAL INDICATION: Flank pain, question kidney stone COMPARISON: CT abdomen and pelvis 03/03/2016 TECHNIQUE: KUB FINDINGS: There is dense stool throughout the colon which somewhat limits evaluation. The renal shadows are not well visualized. No definite radiodense renal stone in the region of the exact location of the renal shadows. Size osseous structures appear grossly unremarkable. IMPRESSION: Limited study for evaluation of renal stone. Large volume of stool noted throughout the colon.
[2016-07-01 18:26] LABS: ABSOLUTE BASOPHIL COUNT 0 /CUMM (0.0-0.2); ABSOLUTE EOSINOPHIL COUNT 0.2 /CUMM (0.0-0.7); ABSOLUTE GRANULOCYTE CT 6.4 /CUMM (1.4-6.5); ABSOLUTE LYMPH COUNT 1.5 /CUMM (1.2-3.4); ABSOLUTE MONOCYTE COUNT 0.6 /CUMM (0.10-0.60); BASOPHIL % 0.4 % (0.0-2.0); GRANULOCYTE % 73.4 % (42.2-75.2); HEMATOCRIT 37.8 % (37-47); MEAN CORPUSCULAR HGB 28.2 PG (27.0-31.0); MEAN CORPUSCULAR HGB CONC 33.5 G/DL (33.0-37.0); MEAN CORPUSCULAR VOLUME 84.2 FL (81.0-99.0); MEAN PLATELET VOLUME 7.7 FL (7.4-10.4); PLATELET COUNT 262 /CUMM (130-400); RED BLOOD CELL CT 4.49 /CUMM (4.20-5.40); WHITE BLOOD CELL COUNT 8.7 /CUMM (4.8-10.8)
[2016-07-01] MEDS ORDERED: PYRIDIUM100 M1 PO (19:02)
[2016-07-01] MEDS ORDERED: LEVSIN0.125 M1 PO (19:02)
[2016-07-01 19:06] VITALS: BP 128/76
== END 2016-07-01 19:19 ==
LOC: ERH 14:59
PROVIDERS: Physician Assistant
DX: K59.00 Constipation, unspecified (principal); R30.0 Dysuria
CPT/HCPCS: 74000; 81001; 81025; 87086; J3101

== ENCOUNTER 2016-07-06 22:32 | Emergency (ER) | payer OTHER ==
[~2016-07-06] VITALS: Ht 162.6 cm; Wt 137.9 kg
[~2016-07-06 22:32] MED LIST changes: +PYRIDIUM100 M1 PO
[2016-07-06 22:38] VITALS: BP 127/83
--- NOTE | 2016-07-06 23:19 | ED GENERAL ADULT ---
History of Present Illness General Chief Complaint: Skin Rash/ Abcess Stated Complaint: ABCESS TO RIGHT THIGH Source: patient Exam Limitations: no limitations Allergies Coded Allergies: cefaclor (Severe, ANAPHYLAXIS 03/25/16) Sulfa (Sulfonamide Antibiotics) (THROAT CLOSURE 03/25/16) Reconcile Medications Adalimumab (Humira Pen) 40 MG/0.8 ML PEN.IJ.KIT 1 SYR SC Q2W UNKNOWN ( Reported) Albuterol Sulfate (Proair Hfa) 0.09 MG/Actuation BARBARA 2 PUFF INH PRN ASTHMA ( Reported) Beclomethasone Dipropionate (Qvar) 0.08 MG/Actuation AER 2 PUFF INH BID ASTHMA (Reported) Clindamycin HCl 300 MG CAPSULE 1 CAP PO 4 TIMES/DAY infection Clonazepam 0.5 MG TAB 1 TAB PO TID PRN ANXIETY (Reported) FLUOXETINE HCL (Fluoxetine Hydrochloride) 40 MG CAP 1 CAP PO QAM MENTAL HEALTH (Reported) Folic Acid 1 MG TABLET 1 TAB PO BID SUPPLEMENT (Reported) Hyoscyamine (Levsin) 0.125 MG TABLET 1 TAB PO Q4 PRN ABDOMINAL DISCOMFORT METHOTREXATE SODIUM (Methotrexate) 2.5 MG TAB 5 TAB PO QTUES LUPUS (Reported) Montelukast Sodium (Singulair) 10 MG TAB 1 TAB PO DAILY ASTHMA (Reported) Oxcarbazepine 300 MG TAB 1 TAB PO BID MENTAL HEALTH (Reported) Pantoprazole Sodium (Protonix) 40 MG TAB 1 TAB PO DAILY GI (Reported) Phenazopyridine HCl (Pyridium) 100 MG TABLET 1 TAB PO TID PRN DYSURIA Robitussin AC (Guaifenesin-Codeine Syrup) 200 MG-20 MG/10 ML LIQUID 10 ML PO Q6 PRN COUGH TRAZODONE HCL (Trazodone HCl) 100 MG TAB 1-2 TAB PO QPM PRN SLEEP (Reported) Triage Note: RECEIVED 21 YO FEMALE C/O ABSCESS TO RIGHT UPPER INNER THIGH X ONE WEEK Triage Nurses Notes Reviewed? yes : No Patient currently breastfeeds: No HPI: Patient came to the ED due to 1 week history of noticing an abscess on the right inner thigh, gradually growing in size, tender, with redness and bruising. Denies fever or chills. reports previous history of developing abscesses in the skin in the middle of the chest (4 times, drained at [facility]) and once on the left underarm (drained here at [facility]), did not receive ABx for those. She gives a history of being MRSA + in previous hospitalizations. Patient PMH is also significant for a recent UTI treated with doxycycline, bronchitis treated with Clindamycin. She has a hx of PID following a chlamydia infection, as well as ovarian cyst rupture requiring mutiple exploratory laparoscopic and one laparatomy surgery. (HARRIETT DAVID MD) Vital Signs & Intake/Output Vital Signs & Intake/Output Vital Signs Date Time Temp Pulse Resp B/P Pulse O2 O2 Flow FiO2 Ox Delivery Rate 07/06 2238 98.3 106 18 127/83 97 Room Air ED Intake and Output 07/07 0000 07/06 1200 Intake Total Output Total Balance Patient 137.892 kg Weight Past History Travel History Traveled to [place] past 21 day No Medical History Any Pertinent Medical History? see below for history Neurological: migraine EENT: L EYE BLIND Cardiovascular: NONE Respiratory: asthma Gastrointestinal: GERD Hepatic: NONE Renal: NONE Musculoskeletal: psoariatic arthritis, LUPUS MRSA IN WOUND Psychiatric: anxiety, depression Endocrine: NONE Blood Disorders: NONE Cancer(s): NONE MUSIC COORDINATOR/Reproductive: OVARIAN CYST POLYCYSTIC OVARY SYNDROME History of MRSA: Yes History of VRE: No History of CDIFF: No Surgical History Surgical History: MULT ABD SX OVARIAN CYST L AXILLARY MOLE REMOVED Psychosocial History Who do you live with Mother Services at Home None What is your primary language Greenlandic Tobacco Use: Never used Family History Family History, If Any: FATHER FH: diabetes mellitus MOTHER FH: breast cancer (HARRIETT DAVID MD) Family History Hx Contributory? No (CONTRERAS WU,ROBERT Flores) Review of Systems Review of Systems Constitutional: Denies: chills, diaphoresis, fever, malaise, weakness. EENTM: Denies: blurred vision, hearing changes. Respiratory: Denies: cough, short of breath, sputum production. Cardiovascular: Denies: chest pain, palpitations. GI: Reports: abdominal pain (chronic mild abdominal pain). Denies: constipation, changes in stool. Genitourinary: Reports: no symptoms. Musculoskeletal: Reports: no symptoms. Skin: Reports: erythema, lumps. Neurological/Psychological: Reports: no symptoms. Hematologic/Endocrine: Reports: no symptoms. (HARRIETT DAVID MD) Physical Exam Physical Exam General Appearance: well developed/nourished, no apparent distress, alert, awake , comfortable Head: atraumatic, normal appearance Eyes: Bilateral: PERRL, EOMI. Ears, Nose, Throat: normal pharynx, normal ENT inspection Neck: normal inspection, supple, full range of motion Respiratory: normal breath sounds, chest non-tender, no respiratory distress, quiet respiration Cardiovascular: regular rate/rhythm Peripheral Pulses: 2+ radial (R), 2+ radial (L) Gastrointestinal: normal bowel sounds, soft, non-tender Rectal: normal exam, normal rectal tone Back: normal inspection, normal range of motion, no vertebral tenderness Extremities: normal inspection, normal capillary refill, normal range of motion, no edema Neurologic/Psych: no motor/sensory deficits, awake, alert, oriented x 3 Skin: 1x2 firm ternder nodule on the medial inner aspect of the right thigh, with bluish/purpuplish discoloration of the skin Lymphatic: no anterior cervical dian Core Measures ACS in differential dx? No CVA/TIA Diagnosis: No Severe Sepsis Present: No Septic Shock Present: No (HARRIETT DAVID MD) Progress Differential Diagnoses I considered the following diagnoses in my evaluation of the patient: [skin abscess, dermal cyst] Plan of Care: Treatment with clindamycin 4x a day for 1 week, will come back to the ED if symptoms get worse, develops fever, and is the abscess become fluctuant requiring incision and drainage. Initial ED EKG: none (HARRIETT DAVID MD) Departure Departure Condition: Stable Referrals: LUISA ORTEGA DO (PCP/Family) Departure Forms: Customer Survey General Discharge Information Prescriptions: Current Visit Scripts Clindamycin HCl 1 CAP PO 4 TIMES/DAY #40 CAP (HARRIETT DAVID MD) Departure Disposition: HOME OR SELF CARE Clinical Impression Primary Impression: Cellulitis Resident Co-Sign Statement Statement: ED Attending supervision documentation- [x] I saw and evaluated the patient. I have also reviewed all the pertinent lab results and diagnostic results. I agree with the findings and the plan of care as documented in the Resident's documentation. pt with mild tenderness at right inner thigh. No obvious abscess. Will rx with clindamycin... pt to see me tomorrow (monday) at 11pm for follow up if symptoms progress to consider I+D [] I have reviewed the ED Record and agree with the Resident's documentation. [] Additions or exceptions (if any) to the Resident's note and plan are summarized below: [] (CONTRERAS WU,ROBERT Flores) Critical Care Note Critical Care Note Critical Care Time: non-applicable (CONTRERAS WU,ROBERT Flores)
[2016-07-07] MEDS ORDERED: CLINDAMYCIN HC300 M1 PO (00:02)
== END 2016-07-07 00:11 ==
LOC: ERH 22:32
DX: L03.115 Cellulitis of right lower limb (principal)

== ENCOUNTER 2016-08-05 20:57 | Emergency (ER) | payer OTHER ==
--- NOTE | 2016-08-05 21:32 | ED GI/GU/ABDOMINAL COMPLAINT ---
See Addendum History of Present Illness General Chief Complaint: Abdominal Pain/Flank Pain Stated Complaint: ABD PAIN Source: patient Exam Limitations: no limitations Vital Signs & Intake/Output Vital Signs & Intake/Output Vital Signs Date Time Temp Pulse Resp B/P Pulse O2 O2 Flow FiO2 Ox Delivery Rate 08/05 2333 83 20 111/59 95 Room Air 08/05 2103 97.7 83 22 127/72 ED Intake and Output 08/06 0000 08/05 1200 Intake Total 1000 Output Total Balance 1000 Intake, IV 1000 Allergies Coded Allergies: cefaclor (Severe, ANAPHYLAXIS 03/25/16) Sulfa (Sulfonamide Antibiotics) (THROAT CLOSURE 03/25/16) Reconcile Medications Adalimumab (Humira Pen) 40 MG/0.8 ML PEN.IJ.KIT 1 SYR SC Q2W UNKNOWN ( Reported) Albuterol Sulfate (Proair Hfa) 90 MCG HFA.AER.AD 2 PUF INH PRN ASTHMA ( Reported) Beclomethasone Dipropionate (QVAR) 80 MCG AER.W.ADAP 2 PUF INH BID ASTHMA ( Reported) Clonazepam 0.5 MG TABLET 1 TAB PO TIDPRN PRN ANXIETY (Reported) Fluoxetine HCl (Prozac) 40 MG CAPSULE 1 CAP PO QAM MENTAL HEALTH (Reported) Folic Acid 1 MG TABLET 1 TAB PO BID SUPPLEMENT (Reported) Methotrexate 2.5 MG TABLET 5 TAB PO QTUES LUPUS (Reported) Montelukast Sodium (Singulair) 10 MG TABLET 1 TAB PO DAILY ASTHMA (Reported) Nitrofurantoin Monohyd/M-Cryst (Macrobid 100 MG Capsule) 100 MG CAPSULE 1 CAP PO BID UTI with food Ondansetron (Zofran Odt) 4 MG TAB.RAPDIS 1 TAB SL TID PRN NAUSEA Oxcarbazepine (Trileptal) 300 MG TABLET 1 TAB PO BID MENTAL HEALTH (Reported) Pantoprazole Sodium (Protonix) 40 MG TABLET.DR 1 TAB PO DAILY GI (Reported) Trazodone HCl 100 MG TABLET 1-2 TAB PO QPM PRN SLEEP (Reported) Triage Note: PER PT ABD PAIN X 2 DAYS. Triage Nurses Notes Reviewed? yes ? N Is pt currently ? No HPI: This patient is a 21-year-old female who presented to the emergency department today for evaluation of abdominal pain and vomiting. The patient reported that her symptoms began today. The abdominal pain is located across her lower abdomen and gets up to an 8 out of 10. She reported that it feels similar to her prior episodes of ovarian cysts. She has had multiple abdominal surgeries for removal of ovarian cysts in the past. The patient reported that she vomited twice today with no blood in the vomitus. She did report associated nausea. She denied any fevers or chills. No urinary burning, urgency, frequency, blood in the urine. The patient's last menstrual period ended approximately 4 days ago and was normal. The patient denied any diarrhea or constipation. The pain has been constant since onset and nonradiating. No provoking or palliative factors. (REJI DENTON PA-C) Past History Travel History Traveled to [place] past 21 day No Medical History Any Pertinent Medical History? see below for history Neurological: migraine EENT: L EYE BLIND Cardiovascular: NONE Respiratory: asthma Gastrointestinal: GERD Hepatic: NONE Renal: NONE Musculoskeletal: psoariatic arthritis, LUPUS MRSA IN WOUND Psychiatric: anxiety, depression Endocrine: NONE Blood Disorders: NONE Cancer(s): NONE VP TALENT MANAGEMENT/Reproductive: OVARIAN CYST POLYCYSTIC OVARY SYNDROME History of MRSA: Yes History of VRE: No History of CDIFF: No Surgical History Surgical History: MULT ABD SX OVARIAN CYST L AXILLARY MOLE REMOVED Psychosocial History Who do you live with Mother Services at Home None What is your primary language Amharic Tobacco Use: Never used Family History Family History, If Any: FATHER FH: diabetes mellitus MOTHER FH: breast cancer Hx Contributory? No (REJI DENTON PA-C) Review of Systems Review of Systems Constitutional: Reports: no symptoms. EENTM: Reports: no symptoms. Respiratory: Reports: no symptoms. Cardiovascular: Reports: no symptoms. GI: Reports: see HPI. Genitourinary: Reports: see HPI. Musculoskeletal: Reports: no symptoms. Skin: Reports: no symptoms. Neurological/Psychological: Reports: no symptoms. All Other Systems: Reviewed and Negative (REJI DENTON PA-C) Physical Exam Physical Exam Gastrointestinal: normal bowel sounds, soft, no organomegaly, tenderness to palpation in bilateral groin regions. No McBurney's point tenderness. Negative Morales sign. Negative Rovsing's and psoas sign. No rebound or guarding. No peritoneal signs Comments: Well-developed well-nourished person in no acute distress HEENT: Normal EENT exam, moist mucous membranes Neck: Supple Back: Normal gait Cardiovascular: Regular rate and rhythm with no murmurs Respiratory: No respiratory distress. Breath sounds clear to auscultation bilaterally with no wheezes, rales, rhonchi Extremity: Normal and equal pulses Neuro: Alert oriented x3, motor sensory normal, cranial nerves II through XII grossly intact. Skin: No appreciable rash on exposed skin, skin is warm and dry. Psych: Mood and affect is normal, memory and judgment is normal. Core Measures ACS in differential dx? No Severe Sepsis Present: No Septic Shock Present: No (BERTIN MANZO,REJI) Progress Differential Diagnosis: AMI, appendicitis, biliary colic, bowel obstruction, colon cancer, cholecystitis, diverticulitis, ectopic , endometritis, gastritis, hepatitis, ischemic bowel, inflamm bowel dis, intrauterine , kidney stone, ovarian cyst, ovarian torsion, pancreatitis, PID/cervicitis, PUD/ GERD, SBO, threatened AB, UTI/pyelo Plan of Care: Orders Procedure Date/time Status CT ABD & PELVIS W IV CONTRAST 08/05 2237 Active Add-on Test (ER Only) 08/05 2130 Active DIRECT BILIRUBIN 08/05 2127 Complete URINALYSIS 08/05 2057 Complete LIPASE 08/05 2057 Complete HUMAN BETA HCG SCREEN 08/05 2057 Complete COMPREHENSIVE METABOLIC PANEL 08/05 2057 Complete CBC WITHOUT DIFFERENTIAL 08/05 2057 Complete AMYLASE 08/05 2057 Complete Laboratory Tests 08/05/165: Urine Color YEL, Urine Clarity CLEAR, Urine pH 6.0, Ur Specific [place] 1.025, Urine Protein TRACE H, Urine Ketones NEG, Urine Nitrite NEG, Urine Bilirubin NEG, Urine Urobilinogen 0.2, Ur Leukocyte Esterase TRACE H, Ur Microscopic SEDIMENT EXAMINED, Urine RBC 1-3, Urine WBC 10-15 H, Ur Epithelial Cells MOD H , Urine Mucus FEW, Urine Hemoglobin MOD H, Urine Glucose NEG 08/05/162127: Anion Gap 12, Estimated GFR > 60, BUN/Creatinine Ratio 15.7, Glucose 87, Calcium 9.2, Total Bilirubin 0.5, Direct Bilirubin 0.4, AST 29, ALT 57 H, Alkaline Phosphatase 96, Total Protein 7.7, Albumin 4.3, Globulin 3.4, Albumin/Globulin Ratio 1.3, Amylase < 30 L, Lipase 51, Total Beta HCG NEGATIVE, CBC w Diff NO MAN DIFF REQ, RBC 4.60, MCV 84.8, MCH 27.5, RDW 14.5, MPV 7.4, Gran % 68.5, Lymphocytes % 22.2, Monocytes % 7.2, Eosinophils % 1.7, Basophils % 0.4, Absolute Granulocytes 5.4, Absolute Lymphocytes 1.7, Absolute Monocytes 0.6, Absolute Eosinophils 0.1, Absolute Basophils 0, PUBS MCHC 32.5 L 08/05/162122: Direct Bilirubin Cancelled Diagnostic Imaging: Viewed by Me: Ultrasound. Discussed w/RAD: Ultrasound. Radiology Impression: PATIENT: RADHA HODGES PRESENT AGE: 21 PATIENT ACCOUNT NO: [id number] : 94 LOCATION: [facility] ORDERING PHYSICIAN: REJI DENTON PA-C SERVICE DATE: 08/05/16 EXAM TYPE: US - US-TRANSVAGINAL EXAMINATION: ULTRASOUND PELVIS CLINICAL INFORMATION: Bilateral groin pain. COMPARISON: CT abdomen and pelvis with contrast 2015. Pelvic ultrasound 01/27/2016. TECHNIQUE: Real-time sonographic imaging of the uterus and bilateral adnexa via transabdominal and transvaginal approach. FINDINGS: The uterus is anteverted and measures 7.6 x 3.8 x 5.1 cm in sagittal, AP and transverse dimensions respectively. The endometrial stripe measures 0.2 cm in thickness. The cervical length is 2.7 cm. The right ovary is not visualized. The left ovary measures 3.7 x 1.0 x 2.0 cm, corresponding to a volume of 6.4 mL. There is a simple cyst within the left ovary measuring 1.3 x 1.6 x 1.5 cm. Arterial and venous flow are demonstrated within the left ovary. No significant free pelvic fluid. IMPRESSION: A 1.3 x 1.6 x 1.5 cm simple cyst within the left ovary. Nonvisualization of the right ovary. Otherwise, unremarkable pelvic ultrasound. DICTATED BY: KAREEM ORONEY MD DATE/TIME DICTATED:08/05/162217 HEAT SEAL OPERATOR:DAVID DATE/TIME TRANSCRIBED:2217 CONFIDENTIAL, DO NOT COPY WITHOUT APPROPRIATE AUTHORIZATION. < Electronically signed in Other Vendor System> SIGNED BY: KAREEM ROONEY MD 02/24/17 2223 Initial ED EKG: none Hand-Off Endorsed To: CONTRERAS WU,ROBERT Flores Endorsed Time: 0100 Pending: CT Comments: 08/05/2016 10:37:06 PM: The patient is resting comfortably on the stretcher. She reported that the pain is still the same, but nausea is better. She would like to have a CT scan of the abdomen and pelvis. I updated her on her ultrasound and laboratory studies. I explained to the patient the risks of radiation from the CT scan. She reported that she understands and still would like a CT scan. (BERTIN MANZO,REJI) Departure Departure Disposition: HOME OR SELF CARE Condition: Stable Clinical Impression Primary Impression: Urinary tract infection Qualifiers: Urinary tract infection type: site unspecified Hematuria presence: without hematuria Qualified Code: N39.0 - Urinary tract infection, site not specified Secondary Impressions: Viral syndrome Referrals: LUISA ORTEGA DO (PCP/Family) Additional Instructions: TAKE ANTIBIOTIC PRESCRIBED FOR UTI. TAKE ZOFRAN PRESCRIBED FOR NAUSEA. FOLLOW-UP WITH YOUR PRIMARY CARE PHYSICIAN. RETURN FOR WORSENING SYMPTOMS OR CONCERNS. Departure Forms: Customer Survey General Discharge Information Prescriptions: Current Visit Scripts Nitrofurantoin Monohyd/M-Cryst (Macrobid 100 MG Capsule) 1 CAP PO BID #14 CAP with food Ondansetron (Zofran Odt) 1 TAB SL TID PRN NAUSEA #10 TAB (BERTIN MANZO,REJI)
[2016-08-05 21:38] LABS: ABSOLUTE BASOPHIL COUNT 0 /CUMM (0.0-0.2); ABSOLUTE EOSINOPHIL COUNT 0.1 /CUMM (0.0-0.7); ABSOLUTE GRANULOCYTE CT 5.4 /CUMM (1.4-6.5); ABSOLUTE LYMPH COUNT 1.7 /CUMM (1.2-3.4); ABSOLUTE MONOCYTE COUNT 0.6 /CUMM (0.10-0.60); BASOPHIL % 0.4 % (0.0-2.0); EOSINOPHIL % 1.7 % (0-5); GRANULOCYTE % 68.5 % (42.2-75.2); MEAN CORPUSCULAR HGB 27.5 PG (27.0-31.0); MEAN CORPUSCULAR HGB CONC 32.5 G/DL (33.0-37.0); MEAN CORPUSCULAR VOLUME 84.8 FL (81.0-99.0); MEAN PLATELET VOLUME 7.4 FL (7.4-10.4); PLATELET COUNT 267 /CUMM (130-400); RBC DISTRIBUTION WIDTH 14.5 % (11.5-14.5); WHITE BLOOD CELL COUNT 7.8 /CUMM (4.8-10.8)
--- NOTE | 2016-08-05 22:23 | ULTRASOUND REPORT ---
EXAMINATION: ULTRASOUND PELVIS CLINICAL INFORMATION: Bilateral groin pain. COMPARISON: CT abdomen and pelvis with contrast 03/03/2016. Pelvic ultrasound 01/27/2016. TECHNIQUE: Real-time sonographic imaging of the uterus and bilateral adnexa via transabdominal and transvaginal approach. FINDINGS: The uterus is anteverted and measures 7.6 x 3.8 x 5.1 cm in sagittal, AP and transverse dimensions respectively. The endometrial stripe measures 0.2 cm in thickness. The cervical length is 2.7 cm. The right ovary is not visualized. The left ovary measures 3.7 x 1.0 x 2.0 cm, corresponding to a volume of 6.4 mL. There is a simple cyst within the left ovary measuring 1.3 x 1.6 x 1.5 cm. Arterial and venous flow are demonstrated within the left ovary. No significant free pelvic fluid. IMPRESSION: A 1.3 x 1.6 x 1.5 cm simple cyst within the left ovary. Nonvisualization of the right ovary. Otherwise, unremarkable pelvic ultrasound.
[2016-08-06] MEDS ORDERED: ZOFRAN ODT4 M1 SL (00:30)
[2016-08-06] MEDS ORDERED: MACROBID 100 M100 MG PO (00:30)
--- NOTE | 2016-08-06 01:34 | CT SCAN REPORT ---
EXAMINATION: CT ABDOMEN AND PELVIS WITH CONTRAST CLINICAL INFORMATION: Abdominal pain. Vomiting. COMPARISON: CT scan abdomen pelvis 03/03/2016 TECHNIQUE: Multidetector volumetric imaging was performed of the abdomen and pelvis after the IV administration of 95 mL of Optiray intravenous contrast. Sagittal and coronal reformatted images were obtained on the technologist's workstation. DLP: 1433.49 mGy-cm FINDINGS: LUNG BASES: The visualized lung bases are unremarkable. LIVER, GALLBLADDER, AND BILIARY TREE: The liver is normal in size, shape, and attenuation. No focal hepatic lesion or biliary ductal dilatation is present. The gallbladder is unremarkable with no evidence of radiopaque gallstones, gallbladder wall thickening, or obvious pericholecystic inflammatory changes. PANCREAS: Unremarkable. SPLEEN: Unremarkable. ADRENAL GLANDS: Unremarkable. KIDNEYS AND URETERS: The kidneys are normal in size, shape, and attenuation. No hydronephrosis, hydroureter, or calculi seen. No perinephric stranding. BLADDER: Unremarkable. GASTROINTESTINAL TRACT: The small and large bowel are unremarkable. The appendix is unremarkable. ABDOMINAL WALL: No significant hernia is appreciated. LYMPH NODES: Normal. VASCULAR: Unremarkable. PELVIC VISCERA: Unremarkable. OSSEOUS STRUCTURES: Unremarkable. IMPRESSION: Normal CT scan abdomen and pelvis.
[2016-08-06 01:48] VITALS: BP 126/75
== END 2016-08-06 01:47 ==
LOC: ERH 20:57
PROVIDERS: Pediatrics
DX: N39.0 Urinary tract infection, site not specified (principal); B34.9 Viral infection, unspecified
CPT/HCPCS: 74177; 81001; 96361; 96374; 96375; J1885; J2405

== ENCOUNTER 2016-08-17 12:32 | Emergency (ER) | payer OTHER ==
[~2016-08-17] VITALS: Ht 162.6 cm; Wt 135.6 kg
--- NOTE | 2016-08-17 13:37 | ED GENERAL ADULT ---
See Addendum History of Present Illness General Chief Complaint: Lower Extremity Problems Stated Complaint: PT HAS PAIN IN THE LOWER BACK TRAVELING TO FRONT Source: patient, old records Exam Limitations: no limitations Vital Signs & Intake/Output Vital Signs & Intake/Output Vital Signs Date Time Temp Pulse Resp B/P Pulse O2 O2 Flow FiO2 Ox Delivery Rate 08/17 1446 97.8 90 20 120/60 100 Room Air 08/17 1237 97.9 114 18 138/77 99 Room Air Allergies Coded Allergies: cefaclor (Severe, ANAPHYLAXIS 03/25/16) Sulfa (Sulfonamide Antibiotics) (THROAT CLOSURE 03/25/16) Reconcile Medications Adalimumab (Humira Pen) 40 MG/0.8 ML PEN.IJ.KIT 1 SYR SC Q2W UNKNOWN ( Reported) Albuterol Sulfate (Proair Hfa) 90 MCG HFA.AER.AD 2 PUF INH PRN ASTHMA ( Reported) Beclomethasone Dipropionate (QVAR) 80 MCG AER.W.ADAP 2 PUF INH BID ASTHMA ( Reported) Clonazepam 0.5 MG TABLET 1 TAB PO TIDPRN PRN ANXIETY (Reported) Fluoxetine HCl (Prozac) 40 MG CAPSULE 1 CAP PO QAM MENTAL HEALTH (Reported) Fluoxetine HCl 10 MG CAPSULE 1 CAP PO DAILY MENTAL HEALTH (Reported) Folic Acid 1 MG TABLET 1 TAB PO BID SUPPLEMENT (Reported) Methotrexate 2.5 MG TABLET 5 TAB PO QTUES LUPUS (Reported) Montelukast Sodium (Singulair) 10 MG TABLET 1 TAB PO DAILY ASTHMA (Reported) Ondansetron (Zofran Odt) 4 MG TAB.RAPDIS 1 TAB SL TID PRN NAUSEA Oxcarbazepine (Trileptal) 300 MG TABLET 1 TAB PO BID MENTAL HEALTH (Reported) Pantoprazole Sodium (Protonix) 40 MG TABLET.DR 1 TAB PO BID GI (Reported) Trazodone HCl 100 MG TABLET 1-2 TAB PO QPM PRN SLEEP (Reported) Triage Note: 21 Y/O FEMALE C/O R FLANK PAIN RADIATING INTO RLQ SINCE LAST NIGHT. ALSO C/O NAUSEA. DENIES URINARY SYMPTOMS. LAST MENSES 3 WEEKS AGO AND NORMAL PER PT. AFEBRILE. Triage Nurses Notes Reviewed? yes : No Patient currently breastfeeds: No HPI: This is a 21-year-old female with past medical history significant for PCOS, psoriatic arthritis, lupus, bipolar, anxiety, and depression, who comes in with a chief complaint of right flank pain that radiates to her abdomen. Patient states that pain started suddenly yesterday night, it woke her up for sleep. The pain is associated with nausea, but no vomiting. She states that the pain is sharp stabbing that is 8-9 out of 10 but it radiates to her abdomen with a dull ache. Of note, she states that she was seen a few weeks ago for evaluation of UTI. At this time she denies any fever, dysuria, itching, burning, hematuria , hematochezia, melena, headache, chest pain, or shortness of breath. Pt is well known to ED for multiple visits for pain. Last admission was in August 08 for complaint of abdominal pain. At that time workup was negative. He had an abdomen pelvis CT done on 08/05/2016 showed no acute pathology. In addition she had a CT on 08/05/2016, which was negative and 21 other abdominal pelvis CTs in this ED which have shown no acute pathology. Past History Travel History Traveled to [place] past 21 day No Medical History Any Pertinent Medical History? 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 No Review of Systems Review of Systems Constitutional: Denies: chills, diaphoresis, fever, malaise, weakness. EENTM: Reports: no symptoms. Respiratory: Reports: no symptoms. Cardiovascular: Reports: no symptoms. GI: Reports: abdominal pain, nausea. Genitourinary: Reports: no symptoms. Musculoskeletal: Reports: no symptoms. Skin: Reports: no symptoms. Physical Exam Physical Exam General Appearance: well developed/nourished, no apparent distress, alert, awake , comfortable Head: atraumatic, normal appearance Eyes: Bilateral: normal appearance, PERRL, EOMI. Ears, Nose, Throat: normal pharynx, normal ENT inspection Neck: supple Respiratory: crackles Cardiovascular: regular rate/rhythm Gastrointestinal: bowel sounds 4 present. Patient has some slight tenderness on deep palpation to lower abdominal quadrants, particularly on the right side. Denies any right upper quadrant pain. PT verbally endorses CVA tenderness, but did not have any physical response to pain. Core Measures ACS in differential dx? No CVA/TIA Diagnosis: No Severe Sepsis Present: No Septic Shock Present: No Progress Differential Diagnoses I considered the following diagnoses in my evaluation of the patient: [UTI, nephrolithiasis, pyelonephritis, appendicitis, diverticulitis, diverticulosis,] Plan of Care: Orders Procedure Date/time Status URINE 08/17 123 Complete URINALYSIS 08/17 1238 Complete Laboratory Tests 08/17/16 1332: Urine Color YEL, Urine Clarity HAZY H, Urine pH 6.0, Ur Specific [place] >= 1.030, Urine Protein TRACE H, Urine Ketones NEG, Urine Nitrite NEG, Urine Bilirubin NEG, Urine Urobilinogen 0.2, Ur Leukocyte Esterase SMALL H, Ur Microscopic SEDIMENT EXAMINED, Urine WBC 10-15 H, Ur Epithelial Cells MANY H, Urine Bacteria MANY H, Urine Hemoglobin NEG, Urine Glucose NEG, Urine Test NEGATIVE Initial ED EKG: none Departure Departure Disposition: HOME OR SELF CARE Condition: Stable Clinical Impression Primary Impression: Flank pain Referrals: LUISA ORTEGA DO (PCP/Family) Additional Instructions: If your pain continues to worsen or you have additional symptoms such as fever, blood in the urine, blood in his stool, return to ED. Additionally follow with your primary care physician and nanny caregiver and inform them of your symptoms and ED visit. It is important to note that the maximum dose of ibuprofen 800 mg per dose and about 3000 mg a day. It is very important not to exceed the maximum dose. Departure Forms: Customer Survey General Discharge Information Critical Care Note Critical Care Note Critical Care Time: non-applicable
[2016-08-17 14:46] VITALS: BP 120/60
== END 2016-08-17 15:12 ==
LOC: ERH 12:32
DX: R10.31 Right lower quadrant pain (principal)
CPT/HCPCS: 81001; 81025; J3101

== ENCOUNTER 2016-08-22 16:41 | Emergency (ER) | payer OTHER ==
[~2016-08-22] VITALS: Ht 162.6 cm; Wt 135.6 kg
[2016-08-22 17:20] LABS: ABSOLUTE BASOPHIL COUNT 0 /CUMM (0.0-0.2); ABSOLUTE EOSINOPHIL COUNT 0.2 /CUMM (0.0-0.7); ABSOLUTE GRANULOCYTE CT 4.8 /CUMM (1.4-6.5); ABSOLUTE LYMPH COUNT 1.3 /CUMM (1.2-3.4); ABSOLUTE MONOCYTE COUNT 0.5 /CUMM (0.10-0.60); BASOPHIL % 0.4 % (0.0-2.0); EOSINOPHIL % 2.2 % (0-5); GRANULOCYTE % 71.6 % (42.2-75.2); HEMATOCRIT 39.2 % (37-47); MEAN CORPUSCULAR HGB 27.5 PG (27.0-31.0); MEAN CORPUSCULAR HGB CONC 32.3 G/DL (33.0-37.0); MEAN PLATELET VOLUME 7.6 FL (7.4-10.4); PLATELET COUNT 240 /CUMM (130-400); RBC DISTRIBUTION WIDTH 14.7 % (11.5-14.5); RED BLOOD CELL CT 4.61 /CUMM (4.20-5.40); WHITE BLOOD CELL COUNT 6.7 /CUMM (4.8-10.8)
[2016-08-22] MEDS ORDERED: FLUOXETINE HCL10 M2 PO (18:02)
--- NOTE | 2016-08-22 18:48 | ED GI/GU/ABDOMINAL COMPLAINT ---
History of Present Illness General Chief Complaint: Abdominal Pain/Flank Pain Stated Complaint: "UM IM HAVING BAD STOMACH PAIN" Source: patient Exam Limitations: no limitations Vital Signs & Intake/Output Vital Signs & Intake/Output Vital Signs Date Time Temp Pulse Resp B/P Pulse O2 O2 Flow FiO2 Ox Delivery Rate 08/22 1646 98.0 106 20 129/82 96 Room Air Allergies Coded Allergies: cefaclor (Severe, ANAPHYLAXIS 03/25/16) Sulfa (Sulfonamide Antibiotics) (THROAT CLOSURE 03/25/16) Reconcile Medications Adalimumab (Humira Pen) 40 MG/0.8 ML PEN.IJ.KIT 1 SYR SC Q2W UNKNOWN ( Reported) Albuterol Sulfate (Proair Hfa) 90 MCG HFA.AER.AD 2 PUF INH PRN ASTHMA ( Reported) Beclomethasone Dipropionate (QVAR) 80 MCG AER.W.ADAP 2 PUF INH BID ASTHMA ( Reported) Clonazepam 0.5 MG TABLET 1 TAB PO TIDPRN PRN ANXIETY (Reported) Fluoxetine HCl (Prozac) 40 MG CAPSULE 1 CAP PO QAM MENTAL HEALTH (Reported) Fluoxetine HCl 10 MG CAPSULE 1 CAP PO DAILY MENTAL HEALTH (Reported) Folic Acid 1 MG TABLET 1 TAB PO BID SUPPLEMENT (Reported) Methotrexate 2.5 MG TABLET 5 TAB PO QTUES LUPUS (Reported) Montelukast Sodium (Singulair) 10 MG TABLET 1 TAB PO DAILY ASTHMA (Reported) Ondansetron (Zofran Odt) 4 MG TAB.RAPDIS 1 TAB SL TID PRN NAUSEA Oxcarbazepine (Trileptal) 300 MG TABLET 1 TAB PO BID MENTAL HEALTH (Reported) Pantoprazole Sodium (Protonix) 40 MG TABLET.DR 1 TAB PO BID GI (Reported) Trazodone HCl 100 MG TABLET 1-2 TAB PO QPM PRN SLEEP (Reported) Triage Note: PT TO ED C/O "BAD PAINS IN STOMACH" X A FEW DAYS. STATES VOMITED THIS AM. DENIES DIARRHEA. Triage Nurses Notes Reviewed? yes ? n Is pt currently ? No HPI: This patient is a 21-year-old female with past medical history including ovarian cysts and gastritis who presented to the emergency department today for evaluation of upper abdominal pain 4 days. The patient reported that the pain gets up to a 7 out of 10, is aching, and nonradiating. She reported that the pain is intermittent. No palliative factors. She reported that sometimes eating makes the pain worse. She reported that she did try taking a Zofran today for associated nausea, but threw it up. That was filling time she vomited. She did report that she noticed that some of her sputum when she vomited looked, "a little red." The patient denied any fevers, chills, chest pain, difficulty breathing, constipation, diarrhea, urinary burning, urgency, frequency, or blood in the urine. The patient reported that she had an endoscopy done several years ago and was told she had gastritis. She saw her GI doctor recently and was told that she may have a gastric ulcer. She is currently on Protonix and Pepcid. (REJI DENTON PA-C) Past History Travel History Traveled to [place] past 21 day No Medical History Any Pertinent Medical History? 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 No (REJI DENTON PA-C) Review of Systems Review of Systems Constitutional: Reports: no symptoms. EENTM: Reports: no symptoms. Respiratory: Reports: no symptoms. Cardiovascular: Reports: no symptoms. GI: Reports: see HPI. Genitourinary: Reports: no symptoms. Musculoskeletal: Reports: no symptoms. Skin: Reports: no symptoms. Neurological/Psychological: Reports: no symptoms. All Other Systems: Reviewed and Negative (REJI DENTON PA-C) Physical Exam Physical Exam Gastrointestinal: normal bowel sounds, soft, obese. Nondistended. No organomegaly appreciated. Tenderness to palpation across the epigastrium with no rebound or guarding. Positive Morales sign. No McBurney's point tenderness. No rebound or guarding. Comments: Well-developed well-nourished person in no acute distress HEENT: Normal EENT exam, moist mucous membranes Neck: Supple, no lymphadenopathy Back: Normal gait Cardiovascular: Regular rate and rhythm with no murmurs Respiratory: No respiratory distress. Speaking in full sentences Extremity: Normal equal pulses Neuro: Alert oriented x3, motor sensory normal, cranial nerves II through XII grossly intact. Skin: No appreciable rash on exposed skin, skin is warm and dry. Psych: Mood and affect is normal, memory and judgment is normal. Core Measures ACS in differential dx? No Severe Sepsis Present: No Septic Shock Present: No (BERTIN MANZO,REJI) Progress Differential Diagnosis: AMI, appendicitis, biliary colic, bowel obstruction, colon cancer, cholecystitis, diverticulitis, ectopic , endometritis, gastritis, hepatitis, hernia, ischemic bowel, inflamm bowel dis, intrauterine , kidney stone, ovarian cyst, ovarian torsion, pancreatitis, PID/ cervicitis, PUD/GERD, perforated viscous, threatened AB, UTI/pyelo Plan of Care: Orders Procedure Date/time Status Add-on Test (ER Only) 08/22 1822 Active LIPASE 08/22 1708 Complete HUMAN BETA HCG SCREEN 08/22 1708 Complete DIRECT BILIRUBIN 08/22 1708 Complete AMYLASE 08/22 1708 Complete URINE 08/22 1648 Complete URINALYSIS 08/22 1648 Complete COMPREHENSIVE METABOLIC PANEL 08/22 1648 Complete CBC WITHOUT DIFFERENTIAL 08/22 1648 Complete Laboratory Tests 08/22/16 1708: Anion Gap 10, Estimated GFR > 60, BUN/Creatinine Ratio 12.9, Glucose 107 H, Calcium 9.2, Total Bilirubin 0.4, Direct Bilirubin 0.3, AST 25, ALT 49, Alkaline Phosphatase 92, Total Protein 7.5, Albumin 4.3, Globulin 3.2, Albumin/Globulin Ratio 1.3, Amylase < 30 L, Lipase 48, Total Beta HCG NEGATIVE, CBC w Diff NO MAN DIFF REQ, RBC 4.61, MCV 85.0, MCH 27.5, RDW 14.7 H, MPV 7.6, Gran % 71.6, Lymphocytes % 18.8 L, Monocytes % 7.0, Eosinophils % 2.2, Basophils % 0.4, Absolute Granulocytes 4.8, Absolute Lymphocytes 1.3, Absolute Monocytes 0.5, Absolute Eosinophils 0.2, Absolute Basophils 0, PUBS MCHC 32.3 L 08/22/16 1700: Urinalysis LIGHT H, Urine Color YEL, Urine Clarity CLDY H, Urine pH 6.0, Ur Specific [place] 1.020, Urine Protein NEG, Urine Ketones NEG, Urine Nitrite NEG, Urine Bilirubin NEG, Urine Urobilinogen 0.2, Ur Leukocyte Esterase SMALL H, Ur Microscopic SEDIMENT EXAMINED, Urine RBC RARE, Urine WBC 3-5 H, Ur Epithelial Cells MANY H, Urine Bacteria MANY H, Urine Mucus FEW, Urine Hemoglobin NEG, Urine Glucose NEG, Urine Test NEGATIVE Diagnostic Imaging: Viewed by Me: Ultrasound. Discussed w/RAD: Ultrasound. Radiology Impression: PATIENT: RADHA HODGES PRESENT AGE: 21 PATIENT ACCOUNT NO: [id number] : 94 LOCATION: [facility] ORDERING PHYSICIAN: REJI DENTON PA-C SERVICE DATE: 08/22/16 EXAM TYPE: US - US-LIMITED ABDOMEN EXAMINATION: US ABDOMEN LIMITED CLINICAL INFORMATION: Epigastric pain. Cholecystitis.. COMPARISON: None TECHNIQUE: Real- time imaging of the right upper quadrant abdominal viscera. Color Doppler exam utilized. FINDINGS: Limited by body habitus PANCREAS: Obscured by bowel gas LIVER: Normal. The liver demonstrates normal size, contour and echogenicity. No focal lesion or intrahepatic biliary duct dilatation. Right lobe of liver measures 17.8 cm in length. GALLBLADDER: Normal. The gallbladder is physiologically distended without evidence of stones, sludge, polyps, wall thickening or pericholecystic fluid. Negative ultrasound Morales's sign. COMMON BILE DUCT: Normal in caliber measuring 0.4 cm in diameter. RIGHT KIDNEY: Normal. No hydronephrosis. No renal calculi or focal parenchymal lesions. The kidney measures 11.8 cm in maximum dimension. FREE FLUID: None. IMPRESSION: No acute change. DICTATED BY: EDUARDO LANDEROS MD DATE/TIME DICTATED:08/22/162024 21 DEALER:DAVID DATE/TIME TRANSCRIBED:08/22/162024 CONFIDENTIAL, DO NOT COPY WITHOUT APPROPRIATE AUTHORIZATION. 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 Return for any worsening symptoms or concerns. Departure Forms: Customer Survey General Discharge Information (BERTIN MANZO,REJI) PA/HEALTH WORKERS Co-Sign Statement Statement: ED Attending supervision documentation- [] I saw and evaluated the patient. I have also reviewed all the pertinent lab results and diagnostic results. I agree with the findings and the plan of care as documented in the PA's/HEALTH WORKERS's documentation. [X] I have reviewed the ED Record and agree with the PA's/HEALTH WORKERS's documentation. [] Additions or exceptions (if any) to the PAs/HEALTH WORKERS's note and plan are summarized below: [] (ABBE WU,RONI)
--- NOTE | 2016-08-22 20:31 | ULTRASOUND REPORT ---
EXAMINATION: US ABDOMEN LIMITED CLINICAL INFORMATION: Epigastric pain. Cholecystitis.. COMPARISON: None TECHNIQUE: Real-time imaging of the right upper quadrant abdominal viscera. Color Doppler exam utilized. FINDINGS: Limited by body habitus PANCREAS: Obscured by bowel gas LIVER: Normal. The liver demonstrates normal size, contour and echogenicity. No focal lesion or intrahepatic biliary duct dilatation. Right lobe of liver measures 17.8 cm in length. GALLBLADDER: Normal. The gallbladder is physiologically distended without evidence of stones, sludge, polyps, wall thickening or pericholecystic fluid. Negative ultrasound Morales's sign. COMMON BILE DUCT: Normal in caliber measuring 0.4 cm in diameter. RIGHT KIDNEY: Normal. No hydronephrosis. No renal calculi or focal parenchymal lesions. The kidney measures 11.8 cm in maximum dimension. FREE FLUID: None. IMPRESSION: No acute change.
[2016-08-22 21:23] VITALS: BP 122/78
== END 2016-08-22 21:23 ==
LOC: ERH 16:41
PROVIDERS: Emergency Medicine
DX: R10.13 Epigastric pain (principal); R11.2 Nausea with vomiting, unspecified
CPT/HCPCS: 81001; 81025; 96374; 96375; J1885; J2765

== ENCOUNTER 2016-09-12 15:12 | Emergency (ER) | payer OTHER ==
[~2016-09-12 15:12] MED LIST changes: +FLUOXETINE HCL10 M2 PO
[2016-09-12 15:49] LABS: ABSOLUTE BASOPHIL COUNT 0.1 /CUMM (0.0-0.2); ABSOLUTE EOSINOPHIL COUNT 0.1 /CUMM (0.0-0.7); ABSOLUTE GRANULOCYTE CT 6.2 /CUMM (1.4-6.5); ABSOLUTE LYMPH COUNT 1.4 /CUMM (1.2-3.4); ABSOLUTE MONOCYTE COUNT 0.6 /CUMM (0.10-0.60); BASOPHIL % 0.8 % (0.0-2.0); EOSINOPHIL % 1.2 % (0-5); GRANULOCYTE % 74.3 % (42.2-75.2); MEAN CORPUSCULAR HGB 27.4 PG (27.0-31.0); MEAN CORPUSCULAR HGB CONC 32.3 G/DL (33.0-37.0); MEAN CORPUSCULAR VOLUME 84.8 FL (81.0-99.0); MEAN PLATELET VOLUME 7.6 FL (7.4-10.4); PLATELET COUNT 262 /CUMM (130-400); RBC DISTRIBUTION WIDTH 14.8 % (11.5-14.5); RED BLOOD CELL CT 4.59 /CUMM (4.20-5.40); WHITE BLOOD CELL COUNT 8.3 /CUMM (4.8-10.8)
--- NOTE | 2016-09-12 18:25 | ED GENERAL ADULT ---
History of Present Illness General Chief Complaint: Abdominal Pain/Flank Pain Stated Complaint: ABD PAIN, +N/V Source: patient, family Exam Limitations: no limitations Vital Signs & Intake/Output Vital Signs & Intake/Output Vital Signs Date Time Temp Pulse Resp B/P Pulse O2 O2 Flow FiO2 Ox Delivery Rate 09/12 2009 97.2 90 20 138/72 100 Room Air 09/12 1708 97.6 105 19 158/88 99 Room Air 09/12 1530 97.8 101 20 154/90 97 Allergies Coded Allergies: cefaclor (Severe, ANAPHYLAXIS 03/25/16) Sulfa (Sulfonamide Antibiotics) (THROAT CLOSURE 03/25/16) Reconcile Medications Adalimumab (Humira Pen) 40 MG/0.8 ML PEN.IJ.KIT 1 SYR SC Q2W UNKNOWN ( Reported) Albuterol Sulfate (Proair Hfa) 90 MCG HFA.AER.AD 2 PUF INH PRN ASTHMA ( Reported) Beclomethasone Dipropionate (QVAR) 80 MCG AER.W.ADAP 2 PUF INH BID ASTHMA ( Reported) Clonazepam 0.5 MG TABLET 1 TAB PO TIDPRN PRN ANXIETY (Reported) Doxycycline Hyclate (Vibramycin) 100 MG CAPSULE 1 CAP PO BID INFN Fluoxetine HCl (Prozac) 40 MG CAPSULE 1 CAP PO QAM MENTAL HEALTH (Reported) Fluoxetine HCl 10 MG CAPSULE 1 CAP PO DAILY MENTAL HEALTH (Reported) Folic Acid 1 MG TABLET 1 TAB PO BID SUPPLEMENT (Reported) Methotrexate 2.5 MG TABLET 5 TAB PO QTUES LUPUS (Reported) Montelukast Sodium (Singulair) 10 MG TABLET 1 TAB PO DAILY ASTHMA (Reported) Ondansetron HCl (Zofran) 4 MG TABLET 1 TAB PO Q8 PRN NAUSEA Oxcarbazepine (Trileptal) 300 MG TABLET 1 TAB PO BID MENTAL HEALTH (Reported) Oxycodone HCl/Acetaminophen (Percocet 5-325 MG Tablet) 5 MG-325 MG TABLET 1 TAB PO BID PRN PAIN Pantoprazole Sodium (Protonix) 40 MG TABLET.DR 1 TAB PO BID GI (Reported) Trazodone HCl 100 MG TABLET 1-2 TAB PO QPM PRN SLEEP (Reported) Triage Note: PER PT NAUSEA AND ABD PAIN PAIN X 2 DAYS AND NAUSEA TODAY ? PREG MIGHT BE TOO EARLY TO TELL.LMP08/23/16 Triage Nurses Notes Reviewed? yes Onset: Abrupt Duration: day(s): Timing: recent history : No Patient currently breastfeeds: No HPI: 09/12/16 This is a 21-year-old female presents to the emergency department for lower abdominal pain and vaginal discharge. The patient states that over the past 7 days she's had some lower abdominal cramping and vaginal discharge. She admits to nausea no vomiting, no fever. she has a past medical history of polycystic ovary disease and has had cervicitis and PID. Her last menstrual period was on August 23 The symptoms onset were abrupt, the duration is been 7 days, the severity is significant as her symptoms required her to come to the emergency department for care. Past History Travel History Traveled to [place] past 21 day No Medical History Any Pertinent Medical History? 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 No Review of Systems Review of Systems Constitutional: Denies: fever. Respiratory: Denies: short of breath. Cardiovascular: Denies: chest pain. GI: Reports: abdominal pain, nausea. Genitourinary: Reports: no symptoms. Musculoskeletal: Reports: no symptoms. Skin: Reports: no symptoms. Neurological/Psychological: Reports: no symptoms. Hematologic/Endocrine: Reports: no symptoms. Physical Exam Physical Exam General Appearance: alert, awake, anxious, mild distress Head: atraumatic, normal appearance Eyes: Bilateral: EOMI. Ears, Nose, Throat: normal ENT inspection Neck: normal inspection, full range of motion Respiratory: normal breath sounds, no respiratory distress Cardiovascular: regular rate/rhythm Peripheral Pulses: 4+ radial (R), 4+ radial (L) Gastrointestinal: soft, tenderness, suprapubic, no rebound or guarding Back: normal inspection, normal range of motion Extremities: normal inspection, normal range of motion, no edema Neurologic/Psych: no motor/sensory deficits, awake, alert, oriented x 3 Skin: intact, normal color, warm/dry Comments: Pelvic exam revealed no external lesions, no rash, no vaginal bleeding. She did have mild cervical motion tenderness. The patient was treated with Percocet and Zofran and Toradol. 2 g of Zithromax were given, for GC and chlamydia. She is allergic to penicillin. Core Measures ACS in differential dx? No CVA/TIA Diagnosis: No Severe Sepsis Present: No Septic Shock Present: No Progress Differential Diagnoses I considered the following diagnoses in my evaluation of the patient: [ Cervicitis, appendicitis, viral syndrome, ovarian cyst, PID] Plan of Care: Orders Procedure Date/time Status CULTURE,URINE 09/13 1827 Active TRICHOMONAS 09/13 1827 Complete POTASSIUM HYDROXIDE (AUDREY) 09/13 1827 Complete GENITAL CULTURE 09/13 1827 Active CHLAMYDIA-GC DNA PROBE 09/13 1827 Active URINALYSIS 09/12 153 Complete HUMAN BETA HCG SCREEN 09/13 1531 Complete COMPREHENSIVE METABOLIC PANEL 09/13 1531 Complete CBC WITHOUT DIFFERENTIAL 09/13 1531 Complete Laboratory Tests 09/12/16 1854: Urinalysis MOD H, Urine Color YEL, Urine Clarity HAZY H, Urine pH 8.0, Ur Specific Mcgregor 1.020, Urine Protein NEG, Urine Ketones NEG, Urine Nitrite NEG, Urine Bilirubin NEG, Urine Urobilinogen 0.2, Ur Leukocyte Esterase TRACE H, Ur Microscopic SEDIMENT EXAMINED, Urine RBC RARE, Urine WBC 1-3 H, Ur Epithelial Cells MOD H, Urine Bacteria MANY H, Urine Mucus MOD H, Urine Hemoglobin NEG, Urine Glucose NEG 09/12/16 1539: Anion Gap 9, Estimated GFR > 60, BUN/Creatinine Ratio 13.3, Glucose 122 H, Calcium 9.8, Total Bilirubin 0.5, AST 26, ALT 53 H, Alkaline Phosphatase 74, Total Protein 7.7, Albumin 4.4, Globulin 3.3, Albumin/Globulin Ratio 1.3, Total Beta HCG NEGATIVE, CBC w Diff NO MAN DIFF REQ, RBC 4.59, MCV 84.8, MCH 27.4, RDW 14.8 H, MPV 7.6, Gran % 74.3, Lymphocytes % 16.5 L, Monocytes % 7.2, Eosinophils % 1.2, Basophils % 0.8, Absolute Granulocytes 6.2, Absolute Lymphocytes 1.4, Absolute Monocytes 0.6, Absolute Eosinophils 0.1, Absolute Basophils 0.1, PUBS MCHC 32.3 L Microbiology 09/12 1929 GENITAL: GC DNA Probe - RECD 09/12 1929 GENITAL: Chlamydia DNA Probe (SP) - RECD 09/12 1929 GENITAL: AUDREY Preparation - COMP 09/12 1929 GENITAL: Trichomonas Preparation - COMP 09/12 1929 GENITAL: Genital Culture - RECD 09/12 1853 URINE ROUT: Urine Culture - RECD Initial ED EKG: none Departure Departure Disposition: HOME OR SELF CARE Condition: Stable Clinical Impression Primary Impression: Abdominal pain Secondary Impressions: Vaginal discharge Referrals: LUISA ORTEGA DO (PCP/Family) Departure Forms: Customer Survey General Discharge Information Prescriptions: Current Visit Scripts Ondansetron HCl (Zofran) 1 TAB PO Q8 PRN NAUSEA #5 TAB Oxycodone HCl/Acetaminophen (Percocet 5-325 MG Tablet) 1 TAB PO BID PRN PAIN #8 TAB Doxycycline Hyclate (Vibramycin) 1 CAP PO BID #20 CAP Comments 09/12/16 Patient has had multiple CAT scans of the abdomen and pelvis over the past 2 years. She is afebrile as a normal white count and no left shift, my clinical suspicion for appendicitis is low. She has a history of ovarian cysts and also cervicitis. Pelvic exam did reveal cervical motion tenderness minimal discharge she is afebrile and nontoxic with a normal white count We discussed the risks and benefits of CT scan. The patient was informed that the possibility of early appendicitis exists, I will treat her empirically with Vibramycin for cervicitis we'll also give her Percocet for pain and Zofran for nausea. She will return to the emergency department in the a.m. if worse. Otherwise follow-up with her JAPANESE INTERPRETER this week. Critical Care Note Critical Care Note Critical Care Time: non-applicable
[2016-09-12] MEDS ORDERED: VIBRAMYCIN100 MG PO (19:46)
[2016-09-12] MEDS ORDERED: ZOFRAN4 M2 PO (19:46)
[2016-09-12] MEDS ORDERED: PERCOCET 5-3251 EACH PO (19:46)
[2016-09-12 20:10] VITALS: BP 138/72
== END 2016-09-12 20:32 ==
LOC: ERH 15:12
PROVIDERS: Emergency Medicine
DX: N89.8 Other specified noninflammatory disorders of vagina (principal)
CPT/HCPCS: 87070; 81001; 87086; 87491; 87591; 96372; J0456; J1885; J3101

== ENCOUNTER 2016-09-28 08:37 | Emergency (ER) | payer OTHER ==
[~2016-09-28] VITALS: Ht 162.6 cm; Wt 135.6 kg
[2016-09-28 08:39] VITALS: BP 157/88
--- NOTE | 2016-09-28 08:42 | ED SKIN/ALLERGY COMPLAINT ---
History of Present Illness General Chief Complaint: Female Urogenital Problems Stated Complaint: VAGINAL ABCESS X4DAYS Source: patient, old records Exam Limitations: no limitations Vital Signs & Intake/Output Vital Signs & Intake/Output Vital Signs Date Time Temp Pulse Resp B/P B/P Pulse O2 O2 Flow FiO2 Mean Ox Delivery Rate 09/28 0839 97.8 74 18 157/88 98 Room Air Allergies Coded Allergies: cefaclor (Severe, ANAPHYLAXIS 03/25/16) Sulfa (Sulfonamide Antibiotics) (THROAT CLOSURE 03/25/16) Reconcile Medications Adalimumab (Humira Pen) 40 MG/0.8 ML PEN.IJ.KIT 1 SYR SC Q2W UNKNOWN ( Reported) Albuterol Sulfate (Proair Hfa) 90 MCG HFA.AER.AD 2 PUF INH PRN ASTHMA ( Reported) Beclomethasone Dipropionate (QVAR) 80 MCG AER.W.ADAP 2 PUF INH BID ASTHMA ( Reported) Clindamycin HCl 300 MG CAPSULE 1 CAP PO TID abscess Clonazepam 0.5 MG TABLET 1 TAB PO TIDPRN PRN ANXIETY (Reported) Doxycycline Hyclate (Vibramycin) 100 MG CAPSULE 1 CAP PO BID INFN Fluoxetine HCl (Prozac) 40 MG CAPSULE 1 CAP PO QAM MENTAL HEALTH (Reported) Fluoxetine HCl 10 MG CAPSULE 1 CAP PO DAILY MENTAL HEALTH (Reported) Folic Acid 1 MG TABLET 1 TAB PO BID SUPPLEMENT (Reported) Methotrexate 2.5 MG TABLET 5 TAB PO QTUES LUPUS (Reported) Montelukast Sodium (Singulair) 10 MG TABLET 1 TAB PO DAILY ASTHMA (Reported) Ondansetron HCl (Zofran) 4 MG TABLET 1 TAB PO Q8 PRN NAUSEA Oxcarbazepine (Trileptal) 300 MG TABLET 1 TAB PO BID MENTAL HEALTH (Reported) Oxycodone HCl/Acetaminophen (Percocet 5-325 MG Tablet) 5 MG-325 MG TABLET 1 TAB PO BID PRN PAIN Oxycodone HCl/Acetaminophen (Percocet 5-325 MG Tablet) 5 MG-325 MG TABLET 1 TAB PO BID pain Pantoprazole Sodium (Protonix) 40 MG TABLET.DR 1 TAB PO BID GI (Reported) Trazodone HCl 100 MG TABLET 1-2 TAB PO QPM PRN SLEEP (Reported) Triage Nurses Notes Reviewed? yes Onset: Abrupt Duration: day(s): (4), constant Timing: recent history Severity: mild, moderate Severity Numbers: 6 Location: genitalia Possible Factors: no cause identified No Modifying Factors: none Associated Symptoms: DENIES : No Patient currently breastfeeds: No HPI: 21-year-old female presents emergency room for evaluation complaining of a questionable abscess to her genitalia for the past 4 days. Patient has history of abscesses in the past however never to her genitalia. Her last menstrual cycle was 2 weeks ago and normal per the patient. She denies any vaginal bleeding or discharge, no recent sexual activity.. No fever no chills. She's been using warm soaks without improvement. She has not taken anything for her pain. No modifying factors or associated symptoms otherwise. Pain is mild to moderate aching constant and worse with palpation. No radiation of symptoms she denies any other rash or abscesses or skin (MAI KIRBY) Past History Travel History Traveled to [place] past 21 day No Medical History Any Pertinent Medical History? 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 No (MAI KIRBY) Review of Systems Review of Systems Constitutional: Reports: see HPI. All Other Systems: Reviewed and Negative Comments Review of systems: See HPI, All other systems negative. Constitutional, no chills no fever, no malaise HEENT: no sore throat no congestion, no ear pain Cardiovascular: No chest pain , no palpitation Skin, see hpi Respiratory: No dyspnea no cough no sputum GI: No nausea no vomiting, no diarrhea : No dysuria No hematuria, no frequency, no discharge Muscle skeletal: No joint pain,, no back pain, no neck pain, Neurologic: no headache Psych: No stress Heme/endocrine: No bruising no bleeding Immunology: No lymphadenopathy (MAI KIRBY) Physical Exam Physical Exam General Appearance: well developed/nourished, no apparent distress Comments: Well-developed well-nourished patient in no apparent distress. HEENT: Atraumatic, extraocular motion intact Neck: Supple, FROM Back: FROM Cardiovascular: Regular rate and rhythms no murmurs Respiratory: No respiratory distress. Patient speaking in full complete sentences. Breath sounds clear to auscultation bilaterally: NO W/R/R Female : small 1cm area of induration noted to the left labia, no fluctance no discharge illicited, nontenderNo lesions/discharge or bleeding Extremities: full range of motion Neuro: Alert and oriented x3 Skin: Warm & dry;No appreciable rash on exposed skin Psych: Mood affect normal, normal memory normal judgment. (MAI KIRBY) Progress Differential Diagnosis: abscess/cellulitis, contact dermatitis, shingles, herpes Plan of Care: Current Medications Sig/Butch Start time Last Medication Dose Stop Time Status Admin Clindamycin 300 MG ONCE ONE 09/28 899 UNVr (Cleocin 150MG Cap) 09/28 900 Oxycodone/ 1 TAB ONCE ONE 09/28 899 UNVr Acetaminophen 09/28 900 (Percocet) Old records reviewed including the patient's previous wound cultures which were positive for staph aureus given patient's allergies we'll prescribe her clindamycin and Percocet I advised warm soaks, follow-up with her nuclear reactor engineer or return to ER 48 hours for wound check and discuss with her that there is nothing that I believe the patient would benefit from an I&D today given no fluctuance which she is in agreement with she understands this plan I answered all of her questions I had an extensive conversation regarding need for close follow up with their primary care physician this week as well as return precautions. I answered all of their questions, they feel comfortable with the plan and follow-up care. I discussed the medications that they will receive with the patient. I gave them signs and symptoms that could indicate an adverse reaction. I have advised them to limit their activities until they can see how they respond to the medication. (MAI KIRBY) Departure Departure Time of Disposition: 847 Disposition: HOME OR SELF CARE Condition: Stable Clinical Impression Primary Impression: Bartholin cyst Referrals: LUISA ORTEGA DO (PCP/Family) Additional Instructions: Prescriptions were sent to [facility] [place]. Clindamycin as discussed continue with warm soaks, follow-up with her nuclear reactor engineer or return to the ER in 48 hours for wound check. ibuprofen 800mg every 8 hours. percocet for breakthrough pain- use caution this is a narcotic and highly adictive. use for breakthrough pain only. no driving or drinking alcohol while taking. Departure Forms: Customer Survey General Discharge Information Prescriptions: Current Visit Scripts Clindamycin HCl 1 CAP PO TID #21 CAP Oxycodone HCl/Acetaminophen (Percocet 5-325 MG Tablet) 1 TAB PO BID #8 TAB (MAI KIRBY) PA/CHRISTIAN SCIENCE PRACTITIONER Co-Sign Statement Statement: ED Attending supervision documentation- [] I saw and evaluated the patient. I have also reviewed all the pertinent lab results and diagnostic results. I agree with the findings and the plan of care as documented in the PA's/CHRISTIAN SCIENCE PRACTITIONER's documentation. [X] I have reviewed the ED Record and agree with the PA's/CHRISTIAN SCIENCE PRACTITIONER's documentation. [] Additions or exceptions (if any) to the PAs/CHRISTIAN SCIENCE PRACTITIONER's note and plan are summarized below: [] (GERMÁN WU,JOSELYN Caro)
[2016-09-28] MEDS ORDERED: PERCOCET 5-3251 EACH PO (08:51)
[2016-09-28] MEDS ORDERED: CLINDAMYCIN HC300 M1 PO (08:51)
== END 2016-09-28 09:10 ==
LOC: ERH 08:37
DX: N75.0 Cyst of Bartholin's gland (principal)

== ENCOUNTER 2016-09-29 15:01 | Emergency (ER) | payer OTHER ==
[~2016-09-29] VITALS: Ht 162.6 cm; Wt 135.6 kg
[2016-09-29 15:06] VITALS: BP 136/88
--- NOTE | 2016-09-29 15:32 | ED GI/GU/ABDOMINAL COMPLAINT ---
History of Present Illness General Chief Complaint: Skin Rash/ Abcess Stated Complaint: ABCESS, WAS HERE YESTERDAY Source: patient Exam Limitations: no limitations Vital Signs & Intake/Output Vital Signs & Intake/Output Vital Signs Date Time Temp Pulse Resp B/P B/P Pulse O2 O2 Flow FiO2 Mean Ox Delivery Rate 09/29 1506 98.1 94 18 136/88 99 Room Air Allergies Coded Allergies: cefaclor (Severe, ANAPHYLAXIS 03/25/16) Sulfa (Sulfonamide Antibiotics) (THROAT CLOSURE 03/25/16) Reconcile Medications Adalimumab (Humira Pen) 40 MG/0.8 ML PEN.IJ.KIT 1 SYR SC Q2W UNKNOWN ( Reported) Albuterol Sulfate (Proair Hfa) 90 MCG HFA.AER.AD 2 PUF INH PRN ASTHMA ( Reported) Beclomethasone Dipropionate (QVAR) 80 MCG AER.W.ADAP 2 PUF INH BID ASTHMA ( Reported) Clindamycin HCl 300 MG CAPSULE 1 CAP PO TID abscess Clonazepam 0.5 MG TABLET 1 TAB PO TIDPRN PRN ANXIETY (Reported) Doxycycline Hyclate (Vibramycin) 100 MG CAPSULE 1 CAP PO BID INFN Fluoxetine HCl (Prozac) 40 MG CAPSULE 1 CAP PO QAM MENTAL HEALTH (Reported) Fluoxetine HCl 10 MG CAPSULE 1 CAP PO DAILY MENTAL HEALTH (Reported) Folic Acid 1 MG TABLET 1 TAB PO BID SUPPLEMENT (Reported) Methotrexate 2.5 MG TABLET 5 TAB PO QTUES LUPUS (Reported) Montelukast Sodium (Singulair) 10 MG TABLET 1 TAB PO DAILY ASTHMA (Reported) Ondansetron HCl (Zofran) 4 MG TABLET 1 TAB PO Q8 PRN NAUSEA Oxcarbazepine (Trileptal) 300 MG TABLET 1 TAB PO BID MENTAL HEALTH (Reported) Oxycodone HCl/Acetaminophen (Percocet 5-325 MG Tablet) 5 MG-325 MG TABLET 1 TAB PO BID PRN PAIN Oxycodone HCl/Acetaminophen (Percocet 5-325 MG Tablet) 5 MG-325 MG TABLET 1 TAB PO BID pain Pantoprazole Sodium (Protonix) 40 MG TABLET.DR 1 TAB PO BID GI (Reported) Trazodone HCl 100 MG TABLET 1-2 TAB PO QPM PRN SLEEP (Reported) Triage Note: 21 Y/O FEMALE C/O WORSENING VAGINAL CYST; WAS EVAL'D IN ED YESTERDAY BUT AREA WASNT READY TO BE DRAINED PER PT. F/U WITH OB AND WAS REFERRED TO ED. CURRENTLY ON ANTIBIOTICS WITH NO CHANGE IN SYMPTOMS. Triage Nurses Notes Reviewed? yes ? N Is pt currently ? No Onset: Abrupt Duration: day(s): (FEW), constant, continues in ED Timing: recent history Radiation: no radiation No Modifying Factors: none HPI: 21-year-old female comes into emergency room for further evaluation of pain to her vaginal region. Patient was seen here yesterday and prescribed antibiotics. Patient was at her RIGGER CHIEF doctor's office today who evaluated her and told her that they were not sure exactly what it was and told her that she could come back to the hospital she wanted to. Denies any discharge. Denies any fever. Denies any other associated symptoms. Past History Travel History Traveled to [place] past 21 day No Medical History Any Pertinent Medical History? see below for history Neurological: migraine EENT: L EYE BLIND Cardiovascular: NONE Respiratory: asthma Gastrointestinal: GERD Hepatic: NONE Renal: NONE Musculoskeletal: psoariatic arthritis, LUPUS MRSA IN WOUND Psychiatric: anxiety, depression Endocrine: NONE Blood Disorders: NONE Cancer(s): NONE DOCTOR OF OSTEOPATHY/Reproductive: OVARIAN CYST POLYCYSTIC OVARY SYNDROME History of MRSA: Yes History of VRE: No History of CDIFF: No Surgical History Surgical History: MULT ABD SX OVARIAN CYST L AXILLARY MOLE REMOVED Psychosocial History Who do you live with Mother Services at Home None What is your primary language Italian Tobacco Use: Never used Family History Family History, If Any: FATHER FH: diabetes mellitus MOTHER FH: breast cancer Hx Contributory? No Review of Systems Review of Systems Constitutional: Reports: no symptoms. EENTM: Reports: no symptoms. Respiratory: Reports: no symptoms. Cardiovascular: Reports: no symptoms. GI: Reports: no symptoms. Genitourinary: Reports: see HPI. Musculoskeletal: Reports: no symptoms. Skin: Reports: no symptoms. Neurological/Psychological: Reports: no symptoms. Hematologic/Endocrine: Reports: no symptoms. Immunologic/Allergic: Reports: no symptoms. All Other Systems: Reviewed and Negative Physical Exam Physical Exam General Appearance: well developed/nourished, alert, awake, mild distress Head: atraumatic Eyes: Bilateral: normal appearance. Ears, Nose, Throat, Mouth: hearing grossly normal, moist mucous membrane Neck: normal inspection Respiratory: normal breath sounds, no respiratory distress Cardiovascular: regular rate/rhythm Gastrointestinal: soft Pelvic: SMALL AMOUNT OF SWELLING ABOVE CLITORIS, OTHERWISE NO ABNORMALITIES ON EXTERNAL INSPECTION Back: normal inspection Extremities: normal range of motion Neurologic/Psych: awake, alert, oriented x 3, normal gait, normal mood/affect Skin: intact, normal color Core Measures ACS in differential dx? No Severe Sepsis Present: No Septic Shock Present: No Progress Differential Diagnosis: PID/cervicitis, UTI/pyelo, HERPES, ABSCESS, Plan of Care: 09/29/2016 3:37:46 PM Due to the fact that her nurse development geologist is unclear as to what it is and is uncomfortable cutting it open I told her that she should follow back up with her RIGGER CHIEF doctor and resume oral antibiotics and continue warm soaks and baths. She saw the nurse development geologist there. Patient was instructed to follow-up with the shredding machine knife changer Dr. Zarate that works there. There is only a small area of fluctuance. It is an atypical spot for an abscess. Patient should be evaluated by the RIGGER CHIEF specialist at her office before this is cut into at this time. Initial ED EKG: none Departure Departure Disposition: HOME OR SELF CARE Condition: Stable Clinical Impression Primary Impression: Vaginal lump Referrals: LUISA ORTEGA DO (PCP/Family) Additional Instructions: Follow-up with your RIGGER CHIEF doctor. Continue taking oral antibiotics. Sitz bath sent home. Return if any other concerns. Please go over all results of today's visit with your primary care doctor. Contact your primary care doctor to let them know you were here in the emergency room. There may be nonspecific findings which may not be related to your visit today here in the emergency room but may require further evaluation and chronic monitoring by your primary care doctor. If you had a laceration today the chance of foreign body always remains. You should follow-up with your primary care doctor for recheck in 3-5 days for a wound check. If you had an x-ray done there is a chance that a fracture could have been missed on initial read and you should follow-up with your primary care doctor for repeat x-rays if symptoms persist. If your blood pressure was elevated here in the emergency room please have rechecked by her primary care doctor within the next 48 hours by your primary care doctor. If you were prescribed a narcotic here in the emergency room or any type of controlled substances you're not allowed to drive while taking this medication or operate any type of heavy machinery. Narcotics can make you feel lightheaded dizziness nausea and can cause constipation. You may need to metal pickling equipment operator a stool softener. Thank you for choosing [facility] emergency room. Please return to the emergency room immediately if you have any other concerns worsening of symptoms. Departure Forms: Customer Survey General Discharge Information
== END 2016-09-29 16:03 ==
LOC: ERH 15:01
DX: N90.7 Vulvar cyst (principal)
CPT/HCPCS: 96372

== ENCOUNTER 2016-10-01 18:20 | Emergency (ER) | payer OTHER ==
[~2016-10-01] VITALS: Ht 162.6 cm; Wt 135.2 kg
--- NOTE | 2016-10-01 19:20 | ED GI/GU/ABDOMINAL COMPLAINT ---
History of Present Illness General Chief Complaint: Female Urogenital Problems Stated Complaint: CYST IN VAGINAL AREA Source: patient Exam Limitations: no limitations Vital Signs & Intake/Output Vital Signs & Intake/Output Vital Signs Date Time Temp Pulse Resp B/P B/P Pulse O2 O2 Flow FiO2 Mean Ox Delivery Rate 10/01 1828 97.9 108 16 148/86 99 Room Air Allergies Coded Allergies: cefaclor (Severe, ANAPHYLAXIS 03/25/16) Sulfa (Sulfonamide Antibiotics) (THROAT CLOSURE 03/25/16) Reconcile Medications Adalimumab (Humira Pen) 40 MG/0.8 ML PEN.IJ.KIT 1 SYR SC Q2W UNKNOWN ( Reported) Albuterol Sulfate (Proair Hfa) 90 MCG HFA.AER.AD 2 PUF INH PRN ASTHMA ( Reported) Beclomethasone Dipropionate (QVAR) 80 MCG AER.W.ADAP 2 PUF INH BID ASTHMA ( Reported) Clindamycin HCl 300 MG CAPSULE 1 CAP PO TID abscess Clonazepam 0.5 MG TABLET 1 TAB PO TIDPRN PRN ANXIETY (Reported) Fluoxetine HCl (Prozac) 40 MG CAPSULE 1 CAP PO QAM MENTAL HEALTH (Reported) Fluoxetine HCl 10 MG CAPSULE 1 CAP PO DAILY MENTAL HEALTH (Reported) Folic Acid 1 MG TABLET 1 TAB PO BID SUPPLEMENT (Reported) Methotrexate 2.5 MG TABLET 5 TAB PO QTUES LUPUS (Reported) Montelukast Sodium (Singulair) 10 MG TABLET 1 TAB PO DAILY ASTHMA (Reported) Oxcarbazepine (Trileptal) 300 MG TABLET 1 TAB PO BID MENTAL HEALTH (Reported) Oxycodone HCl/Acetaminophen (Percocet 5-325 MG Tablet) 5 MG-325 MG TABLET 1 TAB PO BID pain Pantoprazole Sodium (Protonix) 40 MG TABLET.DR 1 TAB PO BID GI (Reported) Trazodone HCl 100 MG TABLET 1-2 TAB PO QPM PRN SLEEP (Reported) Triage Note: RECEIVED 21 YO FEMALE C/O CYST ON VAGINAL AREA X ONE WEEK. PT WAS SEEN HERE FOR SAME THIS PAST MONDAY, AND PUT ON ANTIBIOTICS. PT STATES CYST IS GETTING WORSE, NOT BETTER. PT INSTRUCTED BY DR SHEETS TO RETURN TO THE ED. Triage Nurses Notes Reviewed? yes ? N Is pt currently ? No Onset: Gradual Duration: week(s): (1) Timing: no prior history Quality/Severity: moderate Severity Numbers: 8 Location: urethral Radiation: no radiation Activities at Onset: none Prior Abdominal Problems: none Past Sexual History: Unobtainable at this time No Modifying Factors: none HPI: Patient is a 21-year-old female presenting to the emergency department with chief complaint of "cyst near my vagina" for the past one week. She reports that she's been seen and evaluated here multiple times for the same thing, she was started on antibiotics. She even follow-up with her STATIONS SUPERINTENDENT and they told her that they did not know what it was. They told her to continue antibiotics and to come to the ER if symptoms worsen. Pain is worse with sitting. She feels like it's pressure type of pain. Denies any nausea or vomiting. No history of similar symptoms in the past. Denies any fevers or chills. Has been doing warm soaks without relief. (ROSA CABRERA) Past History Travel History Traveled to [place] past 21 day No Medical History Any Pertinent Medical History? 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 No (ROSA CABRERA) Review of Systems Review of Systems Constitutional: Reports: no symptoms. Comments Review of systems: See HPI, All other systems negative. Constitutional, no chills fever or weight loss HEENT: No visual changes no sore throat no congestion Cardiovascular: No chest pain ,palpitation , orthopnea or ankle swelling Skin, no jaundice no rashes Respiratory: No dyspnea cough sputum or hemoptysis GI: No nausea no vomiting : No dysuria No hematuria Muscle skeletal: no back pain, no neck pain, Neurologic: No numbness no confusion Psych: No stress anxiety or depression,. Heme/endocrine: No bruising no bleeding no polyuria or polydipsia Immunology: No splenectomy or history of AIDS (ROSA CABRERA) Physical Exam Physical Exam General Appearance: well developed/nourished, no apparent distress, alert, awake , comfortable Gastrointestinal: soft, non-tender, no organomegaly Comments: Well-developed well-nourished person in no acute distress HEENT: Pupils equally round and reactive to light and accommodation. Nose is atraumatic. Neck: Normal inspection Cardiovascular: normal JVP Respiratory: No respiratory distress. Abdomen: Soft, OBESE ,nontender nondistended, no appreciable organomegaly. Normal bowel sounds. No ascites : There appears to be a prolapsed urethra on exam, tender to palpation, there is mild amount of erythema noted over the mons pubis. No palpable abscess. Extremity: No edema Neuro: Alert oriented x3t. Skin: No appreciable rash on exposed skin, skin is warm and dry. Psych: Mood and affect is normal, memory and judgment is normal. Core Measures ACS in differential dx? No Severe Sepsis Present: No Septic Shock Present: No (ROSA CABRERA) Progress Differential Diagnosis: , ABSCESS, CYST, PROLAPSED UTERUS, PROLAPSED URETHRA Plan of Care: Orders Procedure Date/time Status CT PELVIS W IV CONTRAST 10/01 1918 Active HUMAN BETA HCG SCREEN 10/01 1916 Complete COMPREHENSIVE METABOLIC PANEL 10/01 1916 Complete CBC WITHOUT DIFFERENTIAL 10/01 1916 Complete Laboratory Tests 10/01/161926: Anion Gap 13, Estimated GFR > 60, BUN/Creatinine Ratio 13.3, Glucose 92, Calcium 9.2, Total Bilirubin 0.6, AST 29, ALT 65 H, Alkaline Phosphatase 112, Total Protein 7.6, Albumin 4.2, Globulin 3.4, Albumin/Globulin Ratio 1.2, Total Beta HCG NEGATIVE, CBC w Diff NO MAN DIFF REQ, RBC 4.41, MCV 84.6, MCH 27.7, RDW 14.7 H, MPV 7.1 L, Gran % 79.6 H, Lymphocytes % 11.6 L, Monocytes % 7.5, Eosinophils % 1.0, Basophils % 0.3, Absolute Granulocytes 8.5 H, Absolute Lymphocytes 1.2, Absolute Monocytes 0.8 H, Absolute Eosinophils 0.1, Absolute Basophils 0, PUBS MCHC 32.8 L Diagnostic Imaging: Viewed by Me: CT Scan. Discussed w/RAD: CT Scan. Radiology Impression: PATIENT: RADHA HODGES PRESENT AGE: 21 PATIENT ACCOUNT NO: [id number] : 94 LOCATION: [facility] ORDERING PHYSICIAN: ROSA BAKER SERVICE DATE: 10/01/16 EXAM TYPE: CAT - CT PELVIS W IV CONTRAST EXAMINATION: CT PELVIS WITH IV CONTRAST CLINICAL INFORMATION: Rule out pelvic mass, prolapsed uterus COMPARISON: 2016 TECHNIQUE: Helical scanning was performed with submillimeter collimation through the pelvis with 94 mL of Optiray 320 intravenous contrast. Sagittal and coronal multiplanar 2-D reconstructions were obtained. DLP: 1513 mGy-cm FINDINGS : Normal anteverted uterus. Multiple follicular cysts are seen in the left ovary. Right ovary not well seen. No free fluid or ascites. No lymphadenopathy. Small bowel and colon are normal. Normal appearance of the anterior abdominal wall. Normal urinary bladder. There are mildly enlarged left inguinal lymph nodes. There is fat stranding of the subcutaneous fat of the mons pubis and anterior perineum. Within the anterior perineum, to the right of midline, in the expected location of the right labia, there is ill-defined rim enhancing 1.8 x 2.2 x 2.4 cm fluid collection IMPRESSION: 1.8 x 2.2 x 2.4 cm rim-enhancing fluid collection in the anterior perineum, just to the right of midline, in the expected location of the right labia. The appearance is most consistent with a labial abscess. Superinfection of a Bartholin's cyst could give this appearance as well. Normal anteverted uterus. DICTATED BY: TRISTON WAGNER MD DATE/TIME DICTATED:10/01/162124 BARBER TOOL SHARPENER:DAVID DATE/TIME TRANSCRIBED:2124 CONFIDENTIAL, DO NOT COPY WITHOUT APPROPRIATE AUTHORIZATION. Initial ED EKG: none Hand-Off Endorsed To: UDAY ANDREW Endorsed Time: 2099 Pending: CT Comments: Patient medicated with Toradol arrival. She will go for CAT scan to rule out mass. Likely urethra prolapse. 10/01/2016 8:36:34 PM patient will be signed out to SAMUEL Evangelista pending CT results. (TONIO BAKER,ROSA) Departure Departure Disposition: HOME OR SELF CARE Condition: Stable Clinical Impression Primary Impression: Urethral prolapse Referrals: LUISA ORTEGA DO (PCP/Family) SUHA HARVEY MD Additional Instructions: Follow-up with urology, continue antibiotics as previously prescribed. Continue doing warm soaks. Apply topical estrogen as directed. Return for worsening symptoms or concerns. He may take 2-3 weeks to fully resolve. Departure Forms: Customer Survey General Discharge Information (ROSA CABRERA) PA/MOSAIC FLOOR LAYER Co-Sign Statement Statement: ED Attending supervision documentation- [] I saw and evaluated the patient. I have also reviewed all the pertinent lab results and diagnostic results. I agree with the findings and the plan of care as documented in the PA's/MOSAIC FLOOR LAYER's documentation. [X] I have reviewed the ED Record and agree with the PA's/MOSAIC FLOOR LAYER's documentation. [] Additions or exceptions (if any) to the PAs/MOSAIC FLOOR LAYER's note and plan are summarized below: [] (GERMÁN WU,JOSELYN Caro)
[2016-10-01 19:37] LABS: ABSOLUTE BASOPHIL COUNT 0 /CUMM (0.0-0.2); ABSOLUTE EOSINOPHIL COUNT 0.1 /CUMM (0.0-0.7); ABSOLUTE GRANULOCYTE CT 8.5 /CUMM (1.4-6.5); ABSOLUTE LYMPH COUNT 1.2 /CUMM (1.2-3.4); ABSOLUTE MONOCYTE COUNT 0.8 /CUMM (0.10-0.60); BASOPHIL % 0.3 % (0.0-2.0); GRANULOCYTE % 79.6 % (42.2-75.2); HEMATOCRIT 37.3 % (37-47); MEAN CORPUSCULAR HGB 27.7 PG (27.0-31.0); MEAN CORPUSCULAR HGB CONC 32.8 G/DL (33.0-37.0); MEAN CORPUSCULAR VOLUME 84.6 FL (81.0-99.0); MEAN PLATELET VOLUME 7.1 FL (7.4-10.4); PLATELET COUNT 238 /CUMM (130-400); RBC DISTRIBUTION WIDTH 14.7 % (11.5-14.5); RED BLOOD CELL CT 4.41 /CUMM (4.20-5.40); WHITE BLOOD CELL COUNT 10.7 /CUMM (4.8-10.8)
[2016-10-01] MEDS ORDERED: ESTRACE42.5 GM VG (20:32)
--- NOTE | 2016-10-01 21:40 | CT SCAN REPORT ---
EXAMINATION: CT PELVIS WITH IV CONTRAST CLINICAL INFORMATION: Rule out pelvic mass, prolapsed uterus COMPARISON: 08/06/2016 TECHNIQUE: Helical scanning was performed with submillimeter collimation through the pelvis with 94 mL of Optiray 320 intravenous contrast. Sagittal and coronal multiplanar 2-D reconstructions were obtained. DLP: 1513 mGy-cm FINDINGS: Normal anteverted uterus. Multiple follicular cysts are seen in the left ovary. Right ovary not well seen. No free fluid or ascites. No lymphadenopathy. Small bowel and colon are normal. Normal appearance of the anterior abdominal wall. Normal urinary bladder. There are mildly enlarged left inguinal lymph nodes. There is fat stranding of the subcutaneous fat of the mons pubis and anterior perineum. Within the anterior perineum, to the right of midline, in the expected location of the right labia, there is ill-defined rim enhancing 1.8 x 2.2 x 2.4 cm fluid collection IMPRESSION: 1.8 x 2.2 x 2.4 cm rim-enhancing fluid collection in the anterior perineum, just to the right of midline, in the expected location of the right labia. The appearance is most consistent with a labial abscess. Superinfection of a Bartholin's cyst could give this appearance as well. Normal anteverted uterus.
[2016-10-01 22:16] VITALS: BP 134/80
== END 2016-10-01 22:16 ==
LOC: ERH 18:20
PROVIDERS: Physician Assistant
DX: N36.8 Other specified disorders of urethra (principal)
CPT/HCPCS: 96372; J1885; J3101

== ENCOUNTER 2016-10-04 16:05 | Observation (INO) | payer OTHER ==
[~2016-10-04] VITALS: Ht 162.6 cm; Wt 135.6 kg
[~2016-10-04 16:05] MED LIST changes: +ESTRACE42.5 GM VG
--- NOTE | 2016-10-04 17:05 | Operative Report ---
Operative/Inv Procedure Report Surgery Date: 10/04/16 Name of Procedure: PERICLITORAL ABSCESS INCISION AND DRAINAGE Pre-Operative Diagnosis: periclitoral abscess Post-Operative Diagnosis: same Estimated Blood Loss: less than 50ml Surgeon/Bottle Washer: SUHA HARVEY MD Anesthesia: local monitored anesthesi Specimens: wound culture Complications: none Condition: stable Operative Indication: pain in vagina and difficulty urinating Operative/Procedure Note Note: 21yo female with a 2 week history of vaginal pain. She had been to the ER three times and a CLINICAL PROFESSOR office with antbiotics and estrace given to her. She had no improvement and worsening symptoms with difficulty urinating even. She was seen in my office today and consented for I and D of the fluctuant mass with in clitoris. Her urethra was normal. Patient was identified in the holding area and taken to the operating room. Time out was performed. IV antibiotics were infused. She had an ETT placed with some difficulty. She was placed into the dorsal lithotomy position. SHe was prepped and draped in the standard sterile fashion. An incision was made from 12 to 6 o'clock about 3 inches in length. Once the cavity was opened with a clamp, copious amounts of nur white pus was expressed and collected in a cup. The cavity was dissected free from any fibrous bands and any tracks eg pilonidal cyst tract was examined for and none were appreciated. The area was packed with one inch iodoform packing. She was catheterized and her bladder was emptied. She tolerated the procedure well. The sponge count was correct at the end of the case. Findings: large clitoral mass fluctuant with right side mons pubis cellulitis large amount of white nur pus drained Discharge Disposition: PACU
[2016-10-04 22:48] VITALS: BP 135/68
[2016-10-05] VITALS (8 sets, daily range): BP systolic 118–130; BP diastolic 60–80
[2016-10-06 06:39] VITALS: BP 130/74
[2016-10-06 14:22] VITALS: BP 116/64
--- NOTE | 2016-10-07 15:07 | PN- Urology ---
Subjective Subjective: Pt complaining of vaginal pain that is too great for her to go home with. Review of Systems Constitutional: Denies: no symptoms. EENTM: Denies: no symptoms. Cardiovascular: Denies: no symptoms. Respiratory: Denies: no symptoms. Gastrointestinal: Denies: no symptoms. Genitourinary: Reports: pain. Musculoskeletal: Denies: no symptoms. Skin: Denies: no symptoms. Neurological/Psychological: Reports: anxiety, depressed. Hematologic/Endocrine: Denies: no symptoms. Immunologic/Allergic: Denies: no symptoms. Objective Vital Signs and I&Os Intake & Output 10/07 1600 10/07 0800 10/07 0000 10/06 1600 10/06 0800 10/06 0000 Intake Total 1300 50 Output Total 500 Balance 1300 -450 Intake, IV 100 50 Intake, Oral 1200 Output, Urine 500 Patient 135.624 kg Weight Physical Exam General Appearance: well developed/nourished, awake, comfortable, obese Head: atraumatic, normal appearance Ears, Nose, Throat: normal ENT inspection Neck: normal inspection Respiratory: no respiratory distress Rectal: deferred Extremities: normal inspection Neurologic/Psychiatric: awake, alert, oriented x 3 Reproductive: Normal female genitalia (incision and drainage of peric) Current Medications: Current Medications Sig/Butch Start time Last Medication Dose Route Stop Time Status Admin Acetaminophen 975 MG Q6-PRN PRN 10/04 2014 DCD PO Albuterol Sulfate 2 PUF Q6-PRN PRN 10/04 2014 DCD 10/05 INH 0508 Clindamycin 600 MG IQ8 10/05 0000 DCD 10/06 Dextrose/Water 50 ML IV 1704 Clonazepam 0.5 MG TIDPRN PRN 10/04 2014 DCD 10/05 PO 10/11 2013 1643 Fluoxetine HCl 10 MG DAILY 10/05 1000 DCD 10/06 PO 0938 Fluoxetine HCl 40 MG DAILY 10/05 1000 DCD 10/06 PO 0938 Fluticasone 2 PUF BID 10/04 2199 DCD 10/06 Propionate INH 0940 Folic Acid 1 MG BID 10/04 2199 DCD 10/06 PO 0939 Heparin Sodium 5,000 UNIT Q8 10/05 0600 DCD 10/06 (Porcine) SC 0613 Hydromorphone HCl 1 MG Q2-3 HRS NEEDED.. 10/04 2014 DCD 04/27 IV 1023 Ketorolac 30 MG Q6-PRN PRN 10/04 2014 DCD 10/06 Tromethamine IV 0755 Methotrexate 12.5 MG QTUES 10/11 0700 DCD PO Montelukast Sodium 10 MG AT BEDTIME 10/05 2199 DCD 10/05 PO 2118 Omeprazole 40 MG BID 10/04 2199 DCD 10/06 PO 0939 Ondansetron HCl 4 MG Q6P PRN 10/04 2014 DCD IV Oxcarbazepine 300 MG BID 10/04 2199 DCD 10/06 PO 0938 Oxycodone/ 1 TAB Q4P PRN 10/04 2014 DCD Acetaminophen PO Oxycodone/ 2 TAB Q4P PRN 10/04 2014 DCD 10/06 Acetaminophen PO 1704 Promethazine HCl 12.5 MG Q6P PRN 10/04 2014 DCD IV 10/11 2013 Trazodone HCl 100 MG QPM PRN 10/04 2014 DCD 10/05 PO 2118 Assessment/Plan Assessment/Plan 21yo female seen in my office for vaginal pain was found to have periclitoral abscess that was drained with incision emergently. She was packed and started on IV antibiotics. She is having postop pain. Problem List: 1. Anxiety 2. Pelvic pain Core Measures/Miscellaneous Venous Thromboembolism VTE Risk Factors: Obesity VTE Contraindications: No Contraindications VTE Diagnosis: No Beta Tess Is Beta Tess a Home Med? No Antibiotics Is Patient on Antibiotics? Yes
== END 2016-10-06 19:05 | disposition home health service (06) ==
LOC: STS 16:05 → PACUH 19:48 → ENRESERV 19:59 → 2NA 21:01
PROVIDERS: ADMIT Urology
DX: G89.18 Other acute postprocedural pain (principal); F41.9 Anxiety disorder, unspecified; F32.9 Major depressive disorder, single episode, unspecified; L02.818 Cutaneous abscess of other sites; N39.0 Urinary tract infection, site not specified
CPT/HCPCS: 87070; 87075; 87205; 81025; 87086; 87147; 96372; G0378; J0131; J1100; J1170; J1644; J1885; J2405; J2550; J3490

== ENCOUNTER 2016-10-30 20:01 | Emergency (ER) | payer OTHER ==
[~2016-10-30] VITALS: Ht 162.6 cm; Wt 132.0 kg
[2016-10-30 20:21] VITALS: BP 148/84
--- NOTE | 2016-10-30 21:39 | RADIOLOGY REPORT ---
EXAMINATION: SHOULDER 3 VIEWS, RIGHT CLINICAL INFORMATION: Right shoulder pain. COMPARISON: 02/06/2016.. TECHNIQUE: AP views of the right shoulder were obtained in internal and external rotation. In addition, a Y view was obtained. FINDINGS: There are no fractures or dislocations. The humeral head is seated within a well-formed glenoid. The AC joint is intact. IMPRESSION: Unremarkable right shoulder radiographs.
--- NOTE | 2016-10-30 21:44 | ED UPPER/LOWER EXTREMITY COMPL ---
History of Present Illness General Chief Complaint: Shoulder Injury Stated Complaint: RIGHT SHOULDER PAIN Source: patient Exam Limitations: no limitations Vital Signs & Intake/Output Vital Signs & Intake/Output Vital Signs Date Time Temp Pulse Resp B/P B/P Pulse O2 O2 Flow FiO2 Mean Ox Delivery Rate 10/30 2020 98.3 87 18 148/84 98 Room Air ED Intake and Output 10/31 0000 10/30 1200 Intake Total Output Total Balance Patient 291 lb Weight Weight Reported by Patient Measurement Method Allergies Coded Allergies: cefaclor (Severe, ANAPHYLAXIS 10/30/16) Sulfa (Sulfonamide Antibiotics) (THROAT CLOSURE 10/30/16) Reconcile Medications Adalimumab (Humira Pen) 40 MG/0.8 ML PEN.IJ.KIT 1 SYR SC Q2W UNKNOWN ( Reported) Albuterol Sulfate (Proair Hfa) 90 MCG HFA.AER.AD 2 PUF INH PRN ASTHMA ( Reported) Beclomethasone Dipropionate (QVAR) 80 MCG AER.W.ADAP 2 PUF INH BID ASTHMA ( Reported) Clindamycin HCl 300 MG CAPSULE 1 CAP PO TID abscess Clonazepam 0.5 MG TABLET 1 TAB PO TIDPRN PRN ANXIETY (Reported) Cyclobenzaprine HCl 10 MG TABLET 1 TAB PO TID SPASMS Fluoxetine HCl (Prozac) 40 MG CAPSULE 1 CAP PO QAM MENTAL HEALTH (Reported) Fluoxetine HCl 10 MG CAPSULE 1 CAP PO DAILY MENTAL HEALTH (Reported) Folic Acid 1 MG TABLET 1 TAB PO BID SUPPLEMENT (Reported) Ibuprofen 800 MG TABLET 1 TAB PO TID pain Methotrexate 2.5 MG TABLET 5 TAB PO QTUES LUPUS (Reported) Montelukast Sodium (Singulair) 10 MG TABLET 1 TAB PO DAILY ASTHMA (Reported) Oxcarbazepine (Trileptal) 300 MG TABLET 1 TAB PO BID MENTAL HEALTH (Reported) Oxycodone HCl/Acetaminophen (Percocet 5-325 MG Tablet) 5 MG-325 MG TABLET 1 TAB PO BID pain Pantoprazole Sodium (Protonix) 40 MG TABLET.DR 1 TAB PO BID GI (Reported) Trazodone HCl 100 MG TABLET 1-2 TAB PO QPM PRN SLEEP (Reported) Triage Note: TRIAGE: PT TO ER C/C PAIN TO RT SHOULDER WITH RADIATION INTO RT SIDE OF NECK. ONSET NOON, CONSTANT SINCE ONSET. NO KNOWN INJURY OR AGGRAVATING FACTOR. HAS TRIED ICE, HEAT AND MOTRIN WITH NO RELIEF. Triage Nurses Notes Reviewed? yes Onset: Abrupt Duration: day(s): (few), better, constant Timing: recent history Severity: moderate, severe Pain/Injury Location: Right: Shoulder. No Modifying Factors: none : No Patient currently breastfeeds: No HPI: 21-year-old female comes into emergency room for further evaluation of right shoulder pain. Patient reports that she did some lifting few days back. Pain began on Monday. Pain in the right shoulder is worse with any range of motion. Located on the top portion of her shoulder and radiates up into her neck. Denies any numbness tingling. Denies any falls. Denies any other associated trauma. Denies any other associated symptoms. Sharp throbbing pain. (UDAY ANDREW) Past History Travel History Traveled to [place] past 21 day No Medical History Any Pertinent Medical History? 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 No (UDAY ANDREW) Review of Systems Review of Systems Constitutional: Reports: no symptoms. EENTM: Reports: no symptoms. Respiratory: Reports: no symptoms. Cardiovascular: Reports: no symptoms. Gastrointestinal/Abdominal: Reports: no symptoms. Genitourinary: Reports: no symptoms. Musculoskeletal: Reports: see HPI. Skin: Reports: no symptoms. Neurological/Psychological: Reports: no symptoms. Hematologic/Endocrine: Reports: no symptoms. Immunological: Reports: no symptoms. All Other Systems: Reviewed and Negative (UDAY ANDREW) Physical Exam Physical Exam General Appearance: well developed/nourished, mild distress Head: atraumatic Eyes: Bilateral: normal appearance. Ears, Nose, Throat: normal ENT inspection, hearing grossly normal Neck: normal inspection Cardiovascular/Respiratory: no respiratory distress Back: normal inspection Shoulder Right: soft tissue tenderness, limited range of motion Elbow Right: normal range of motion, normal inspection Neurologic/Tendon: normal sensation, normal motor functions, normal tendon functions, responds to pain, no evidence tendon injury, no pulse deficit Skin: intact, normal color, warm/dry Lymphatic: no anterior cervical dian Diagram Shoulders Front/Back 1) Tenderness with palpation (UDAY ANDREW) Progress Differential Diagnosis: contusion, dislocation, fracture, gout, septic arthritis , sprain, tendon injury Plan of Care: Orders Procedure Date/time Status Durable Medical Equipment 10/30 2148 Active Diagnostic Imaging: Viewed by Me: Radiology Read. Discussed w/RAD: Radiology Read. Radiology Impression: SERVICE DATE: 10/30/16-2026 EXAM TYPE: RAD - XRY- SHOULDER COMPLETE-RIGHT EXAMINATION: SHOULDER 3 VIEWS, RIGHT CLINICAL INFORMATION: Right shoulder pain. COMPARISON: 02/06/2016.. TECHNIQUE: AP views of the right shoulder were obtained in internal and external rotation. In addition, a Y view was obtained. FINDINGS: There are no fractures or dislocations. The humeral head is seated within a well-formed glenoid. The AC joint is intact. IMPRESSION: Unremarkable right shoulder radiographs. DICTATED BY: STEFANY MACK MD (UDAY ANDREW) Departure Departure Disposition: HOME OR SELF CARE Condition: Stable Clinical Impression Primary Impression: Muscle strain of right shoulder region Referrals: LUISA ORTEGA DO (PCP/Family) MADHAVI THOMAS MD Additional Instructions: Take ibuprofen and Flexeril as prescribed. Moist heat to the area. Follow-up with orthopedic doctor if not better in 3-5 days. Return if any other concerns. Please go over all results of today's visit with your primary care doctor. Contact your primary care doctor to let them know you were here in the emergency room. There may be nonspecific findings which may not be related to your visit today here in the emergency room but may require further evaluation and chronic monitoring by your primary care doctor. If you had a laceration today the chance of foreign body always remains. You should follow-up with your primary care doctor for recheck in 3-5 days for a wound check. If you had an x-ray done there is a chance that a fracture could have been missed on initial read and you should follow-up with your primary care doctor for repeat x-rays if symptoms persist. If your blood pressure was elevated here in the emergency room please have rechecked by her primary care doctor within the next 48 hours by your primary care doctor. If you were prescribed a narcotic here in the emergency room or any type of controlled substances you're not allowed to drive while taking this medication or operate any type of heavy machinery. Narcotics can make you feel lightheaded dizziness nausea and can cause constipation. You may need to meat pickler a stool softener. Thank you for choosing [facility] emergency room. Please return to the emergency room immediately if you have any other concerns worsening of symptoms. Departure Forms: Customer Survey General Discharge Information Prescriptions: Current Visit Scripts Ibuprofen 1 TAB PO TID #30 TAB Cyclobenzaprine HCl 1 TAB PO TID #20 TAB (UDAY ANDREW) PA/MASTER BARBER Co-Sign Statement Statement: ED Attending supervision documentation- [] I saw and evaluated the patient. I have also reviewed all the pertinent lab results and diagnostic results. I agree with the findings and the plan of care as documented in the PA's/MASTER BARBER's documentation. [x] I have reviewed the ED Record and agree with the PA's/MASTER BARBER's documentation. [] Additions or exceptions (if any) to the PAs/MASTER BARBER's note and plan are summarized below: [] (CONTRERAS WU,ROBERT Flores)
[2016-10-30] MEDS ORDERED: CYCLOBENZAPRINE10 M1 PO (21:47)
[2016-10-30] MEDS ORDERED: IBUPROFEN800 M1 PO (21:47)
== END 2016-10-30 22:07 ==
LOC: ERH 20:01
DX: S46.911A Strain of unspecified muscle, fascia and tendon at shoulder and upper arm level, right arm, initial encounter (principal); X58.XXXA Exposure to other specified factors, initial encounter; Y92.9 Unspecified place or not applicable; Y93.9 Activity, unspecified
CPT/HCPCS: 73030-RT

== ENCOUNTER 2016-11-14 18:58 | Emergency (ER) | payer OTHER ==
[~2016-11-14 18:58] MED LIST changes: +CYCLOBENZAPRINE10 M1 PO
--- NOTE | 2016-11-14 21:31 | ED GI/GU/ABDOMINAL COMPLAINT ---
History of Present Illness General Chief Complaint: Skin Rash/ Abcess Stated Complaint: ABCESS ON VAGINA PER PT Source: patient, old records Exam Limitations: no limitations Vital Signs & Intake/Output Vital Signs & Intake/Output Vital Signs Date Time Temp Pulse Resp B/P B/P Pulse O2 O2 Flow FiO2 Mean Ox Delivery Rate 11/15 2203 98.7 74 18 118/80 98 11/14 1923 97.0 78 20 122/80 Allergies Coded Allergies: cefaclor (Severe, ANAPHYLAXIS 10/30/16) Sulfa (Sulfonamide Antibiotics) (THROAT CLOSURE 10/30/16) Reconcile Medications Adalimumab (Humira Pen) 40 MG/0.8 ML PEN.IJ.KIT 1 SYR SC Q2W UNKNOWN ( Reported) Albuterol Sulfate (Proair Hfa) 90 MCG HFA.AER.AD 2 PUF INH PRN ASTHMA ( Reported) Beclomethasone Dipropionate (QVAR) 80 MCG AER.W.ADAP 2 PUF INH BID ASTHMA ( Reported) Clindamycin HCl (Cleocin HCl) 300 MG CAPSULE 1 CAP PO TID ABSCESS Clonazepam 0.5 MG TABLET 1 TAB PO TIDPRN PRN ANXIETY (Reported) Fluoxetine HCl (Prozac) 40 MG CAPSULE 1 CAP PO QAM MENTAL HEALTH (Reported) Fluoxetine HCl 10 MG CAPSULE 1 CAP PO DAILY MENTAL HEALTH (Reported) Folic Acid 1 MG TABLET 1 TAB PO BID SUPPLEMENT (Reported) Methotrexate 2.5 MG TABLET 5 TAB PO QTUES LUPUS (Reported) Montelukast Sodium (Singulair) 10 MG TABLET 1 TAB PO DAILY ASTHMA (Reported) Norethindrone ([place]) 0.35 MG TABLET 1 TAB PO DAILY CONTROL ( Reported) Oxcarbazepine (Trileptal) 300 MG TABLET 1 TAB PO TID MENTAL HEALTH (Reported) Oxycodone HCl/Acetaminophen (Percocet 5-325 MG Tablet) 5 MG-325 MG TABLET 1-2 TAB PO Q6P PRN PAIN Pantoprazole Sodium (Protonix) 40 MG TABLET.DR 1 TAB PO BID GI (Reported) Pantoprazole Sodium 40 MG TABLET.DR 1 TAB PO BID GI (Reported) Trazodone HCl 100 MG TABLET 1-2 TAB PO QPM PRN SLEEP (Reported) Triage Note: PER PT ABSCESS TO VAGINA PACKED, THEN PACKING REMOVED, NOW OPENING UPO AGAIN AND GROWING Triage Nurses Notes Reviewed? yes ? N Is pt currently ? No HPI: Patient presents to question whether she has an abscess to the superior aspect of her vagina. Patient has had an abscess there before that required drainage by urology. Patient states that she was doing fine until approximately 2 days ago when she started to notice a lump that area. The lump is tender to palpation. There is been no drainage. There are no fevers or chills. The pain is 10 out of 10 when she is present on the area for tendon throbbing when she is not present on the area. There is no radiation. Patient states that when she had a prior the abscess tracked along the superior vaginal fold. Past History Travel History Traveled to [place] past 21 day No Medical History Any Pertinent Medical History? 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 No Review of Systems Review of Systems Constitutional: Reports: no symptoms. Respiratory: Reports: no symptoms. Cardiovascular: Reports: no symptoms. GI: Reports: no symptoms. Genitourinary: Reports: see HPI. Musculoskeletal: Reports: no symptoms. Neurological/Psychological: Reports: no symptoms. Immunologic/Allergic: Reports: no symptoms. Physical Exam Physical Exam General Appearance: well developed/nourished, alert, awake, moderate distress Head: atraumatic, normal appearance Eyes: Bilateral: PERRL, EOMI. Respiratory: normal breath sounds, chest non-tender, no respiratory distress, lungs clear Cardiovascular: regular rate/rhythm, normal peripheral pulses Gastrointestinal: normal bowel sounds, soft, non-tender, no organomegaly Pelvic: SMALL INDURATED AREA JUST ABOVE THE CLITORIS, 1CM X 0.5 CM, NO FLUCTUENCE Extremities: normal range of motion Neurologic/Psych: no motor/sensory deficits, awake, alert, oriented x 3, normal gait Skin: intact, normal color, warm/dry Core Measures ACS in differential dx? No Severe Sepsis Present: No Septic Shock Present: No Progress Differential Diagnosis: ABSCESS Plan of Care: Orders Procedure Date/time Status HUMAN BETA HCG SCREEN 11/14 2129 Complete COMPREHENSIVE METABOLIC PANEL 11/14 2129 Complete CBC WITHOUT DIFFERENTIAL 11/14 2129 Complete Laboratory Tests 11/14/162144: Anion Gap 11, Estimated GFR > 60, BUN/Creatinine Ratio 13.3, Glucose 88, Calcium 9.0, Total Bilirubin 0.3, AST 19, ALT 50, Alkaline Phosphatase 78, Total Protein 7.3, Albumin 4.3, Globulin 3.0, Albumin/Globulin Ratio 1.4, Total Beta HCG NEGATIVE, CBC w Diff NO MAN DIFF REQ, RBC 4.31, MCV 83.4, MCH 27.5, RDW 15.0 H, MPV 7.5, Gran % 61.3, Lymphocytes % 28.3, Monocytes % 8.0, Eosinophils % 1.9, Basophils % 0.5, Absolute Granulocytes 4.8, Absolute Lymphocytes 2.2, Absolute Monocytes 0.6, Absolute Eosinophils 0.1, Absolute Basophils 0, PUBS MCHC 32.9 L 11/14/162129: Urine Color Cancelled, Urine Clarity Cancelled, Urine pH Cancelled, Ur Specific [place] Cancelled, Urine Protein Cancelled, Urine Ketones Cancelled, Urine Nitrite Cancelled, Urine Bilirubin Cancelled, Urine Urobilinogen Cancelled, Ur Leukocyte Esterase Cancelled, Ur Microscopic Cancelled, Urine Hemoglobin Cancelled, Urine Glucose Cancelled Diagnostic Imaging: Viewed by Me: CT Scan. Discussed w/RAD: CT Scan. Radiology Impression: PATIENT: RADHA HODGES PRESENT AGE: 21 PATIENT ACCOUNT NO: [id number] : 94 LOCATION: [facility] ORDERING PHYSICIAN: JOSELYN DUNLAP MD SERVICE DATE: 11/14/16 EXAM TYPE: CAT - CT PELVIS W IV CONTRAST EXAMINATION: CT PELVIS WITH IV CONTRAST CLINICAL INFORMATION: Superior vaginal swelling. History of abscess. COMPARISON: 10/01/2016 TECHNIQUE: Helical scanning was performed with submillimeter collimation through the pelvis with 95 mL of Optiray 320 intravenous contrast. Sagittal and coronal multiplanar 2-D reconstructions were obtained. DLP: 1138 mGy-cm FINDINGS: PELVIS: The uterus is anteverted and unremarkable. No adnexal mass. The visualized bowel is unremarkable. No obstruction. No inflammatory changes. The bladder is partially distended without wall thickening. There is no lymphadenopathy. Vascular structures are unremarkable. The previous fluid collection in the anterior perineum along the right labia is no longer present. There is no new fluid collection identified. OSSEOUS STRUCTURES: No acute or suspicious osseous abnormality. IMPRESSION: Resolution of previous abscess in the region of the right labia. No new fluid collection is identified. DICTATED BY: BIJAN MCCABE MD DATE/TIME DICTATED:11/14/162320 FARM MACHINERY SET UP MECHANIC: DAVID DATE/TIME TRANSCRIBED:11/14/162320 CONFIDENTIAL, DO NOT COPY WITHOUT APPROPRIATE AUTHORIZATION. <Electronically signed in Other Vendor System> SIGNED BY: ELIOT WU,BIAJN 11/14/162326 Initial ED EKG: none Departure Departure Disposition: HOME OR SELF CARE Condition: Stable Clinical Impression Primary Impression: Abscess Referrals: LUISA ORTEGA DO (PCP/Family) SUHA HARVEY MD Additional Instructions: TAKE ANTIBIOTICS PRESCRIBED TAKE PERCOCET NEEDED FOR SEVERE PAIN FOLLOW UP WITH DR. HARVEY RETURN FOR ANY CONCERNS Departure Forms: Customer Survey General Discharge Information Prescriptions: Current Visit Scripts Clindamycin HCl (Cleocin HCl) 1 CAP PO TID #30 CAP Oxycodone HCl/Acetaminophen (Percocet 5-325 MG Tablet) 1-2 TAB PO Q6P PRN PAIN #20 TAB
[2016-11-14] MEDS ORDERED: SHAROBEL0.35 MG PO (21:54)
[2016-11-14] MEDS ORDERED: PANTOPRAZOLE SO40 M1 PO (21:55)
[2016-11-14 22:00] LABS: ABSOLUTE BASOPHIL COUNT 0 /CUMM (0.0-0.2); ABSOLUTE EOSINOPHIL COUNT 0.1 /CUMM (0.0-0.7); ABSOLUTE GRANULOCYTE CT 4.8 /CUMM (1.4-6.5); ABSOLUTE LYMPH COUNT 2.2 /CUMM (1.2-3.4); ABSOLUTE MONOCYTE COUNT 0.6 /CUMM (0.10-0.60); BASOPHIL % 0.5 % (0.0-2.0); EOSINOPHIL % 1.9 % (0-5); GRANULOCYTE % 61.3 % (42.2-75.2); HEMATOCRIT 35.9 % (37-47); MEAN CORPUSCULAR HGB 27.5 PG (27.0-31.0); MEAN CORPUSCULAR HGB CONC 32.9 G/DL (33.0-37.0); MEAN CORPUSCULAR VOLUME 83.4 FL (81.0-99.0); MEAN PLATELET VOLUME 7.5 FL (7.4-10.4); PLATELET COUNT 291 /CUMM (130-400); RED BLOOD CELL CT 4.31 /CUMM (4.20-5.40); WHITE BLOOD CELL COUNT 7.8 /CUMM (4.8-10.8)
[2016-11-14 22:04] VITALS: BP 118/80
--- NOTE | 2016-11-14 23:27 | CT SCAN REPORT ---
EXAMINATION: CT PELVIS WITH IV CONTRAST CLINICAL INFORMATION: Superior vaginal swelling. History of abscess. COMPARISON: 10/01/2016 TECHNIQUE: Helical scanning was performed with submillimeter collimation through the pelvis with 95 mL of Optiray 320 intravenous contrast. Sagittal and coronal multiplanar 2-D reconstructions were obtained. DLP: 1138 mGy-cm FINDINGS: PELVIS: The uterus is anteverted and unremarkable. No adnexal mass. The visualized bowel is unremarkable. No obstruction. No inflammatory changes. The bladder is partially distended without wall thickening. There is no lymphadenopathy. Vascular structures are unremarkable. The previous fluid collection in the anterior perineum along the right labia is no longer present. There is no new fluid collection identified. OSSEOUS STRUCTURES: No acute or suspicious osseous abnormality. IMPRESSION: Resolution of previous abscess in the region of the right labia. No new fluid collection is identified.
[2016-11-14] MEDS ORDERED: CLEOCIN HCL300 M1 PO (23:33)
[2016-11-14] MEDS ORDERED: PERCOCET 5-3251 EACH PO (23:33)
== END 2016-11-14 23:43 ==
LOC: ERH 18:58
PROVIDERS: Emergency Medicine
DX: N76.0 Acute vaginitis (principal)
CPT/HCPCS: 96361; 96374; 96375; 96376; J2405

== ENCOUNTER 2016-11-28 17:31 | Emergency (ER) | payer OTHER ==
[~2016-11-28] VITALS: Ht 162.6 cm; Wt 135.6 kg
[~2016-11-28 17:31] MED LIST changes: +CLEOCIN HCL300 M1 PO; +PANTOPRAZOLE SO40 M1 PO; +SHAROBEL0.35 MG PO
[2016-11-28 17:35] VITALS: BP 129/84
== END 2016-11-28 17:43 | disposition admitted as inpatient to this hospital (09) ==
LOC: ERH 17:31
DX: G43.909 Migraine, unspecified, not intractable, without status migrainosus (principal)

== ENCOUNTER 2017-01-05 19:29 | Emergency (ER) | payer OTHER ==
[~2017-01-05 19:29] MED LIST changes: +PROZAC20 M2 PO
[2017-01-05 19:36] VITALS: BP 130/81
[2017-01-05 22:37] LABS: ABSOLUTE BASOPHIL COUNT 0.1 /CUMM (0.0-0.2); ABSOLUTE EOSINOPHIL COUNT 0.2 /CUMM (0.0-0.7); ABSOLUTE GRANULOCYTE CT 5.7 /CUMM (1.4-6.5); ABSOLUTE LYMPH COUNT 1.9 /CUMM (1.2-3.4); ABSOLUTE MONOCYTE COUNT 0.6 /CUMM (0.10-0.60); BASOPHIL % 0.9 % (0.0-2.0); EOSINOPHIL % 1.8 % (0-5); GRANULOCYTE % 67.9 % (42.2-75.2); HEMATOCRIT 36.5 % (37-47); MEAN CORPUSCULAR HGB 27.1 PG (27.0-31.0); MEAN CORPUSCULAR HGB CONC 32.7 G/DL (33.0-37.0); MEAN CORPUSCULAR VOLUME 82.8 FL (81.0-99.0); MEAN PLATELET VOLUME 7.4 FL (7.4-10.4); PLATELET COUNT 235 /CUMM (130-400); WHITE BLOOD CELL COUNT 8.5 /CUMM (4.8-10.8)
--- NOTE | 2017-01-05 22:40 | ED GI/GU/ABDOMINAL COMPLAINT ---
History of Present Illness General Chief Complaint: Female Urogenital Problems Stated Complaint: "PELVIC PAIN WITH YELLOW DISCHARGE" Source: patient Exam Limitations: no limitations Vital Signs & Intake/Output Vital Signs & Intake/Output Vital Signs Date Time Temp Pulse Resp B/P B/P Pulse O2 O2 Flow FiO2 Mean Ox Delivery Rate 01/06 1936 97.5 96 20 130/81 Allergies Coded Allergies: cefaclor (Severe, ANAPHYLAXIS 12/11/16) Sulfa (Sulfonamide Antibiotics) (THROAT CLOSURE 12/11/16) Triage Note: PER PT DX WITH PID ON MONDAY DID NOT FOLLOW UP YET WITH INCIDENT RESPONSE LEAD BUT CALLED AT 1530 AND 1800 TODAY. PAIN WORSE Triage Nurses Notes Reviewed? yes ? N Is pt currently ? No HPI: Patient is a 21-year-old female with a past medical history of nephrolithiasis, psoriasis arthritis, lupus, anxiety, depression, and PCOS presenting for worsening lower abdominal pain and vaginal discharge. The patient states that she has diffuse lower abdominal pelvic pain. The pain is a 9 out 10. The pain is worse on her right side and she says it radiates up her right abdominal area to underneath her ribs. She describes the pain as a sharp pain. She also reports brownish yellow vaginal discharge. She states that the Percocets have not helped with her pain. She has had decreased by mouth intake due to nausea or vomiting. She also reports fevers, chills, shortness of breath, diarrhea, dysuria, increased urinary frequency and nocturia. The patient was last seen in the [place] emergency department on 01/01/2017. She was treated prophylatically for pelvic inflammatory disease. Cultures for gonorrhea chlamydia, trich, and AUDREY were negative. Abd u/s and urine negative. She returns to the emergency department today because she tried to get a follow-up primary care appointment but was told by the primary care physician to come into the emergency department. Of note, patient was at [facility] today. (DARLING WU,[facility]) Reconcile Medications Adalimumab (Humira Pen) 40 MG/0.8 ML PEN.IJ.KIT 1 SYR SC Q2W UNKNOWN ( Reported) Albuterol Sulfate (Proair Hfa) 90 MCG HFA.AER.AD 2 PUF INH PRN ASTHMA ( Reported) Beclomethasone Dipropionate (QVAR) 80 MCG AER.W.ADAP 2 PUF INH BID ASTHMA ( Reported) Clonazepam 0.5 MG TABLET 1 TAB PO TIDPRN PRN ANXIETY (Reported) Fluoxetine HCl (Prozac) 20 MG CAPSULE 3 CAP PO DAILY MENTAL HEALTH (Reported) Folic Acid 1 MG TABLET 1 TAB PO BID SUPPLEMENT (Reported) Ketorolac Tromethamine 10 MG TABLET 1 TAB PO TID Abd pain Methotrexate 2.5 MG TABLET 5 TAB PO QTUES LUPUS (Reported) Metoclopramide HCl (Reglan) 10 MG TABLET 1 TAB PO TID [place] 30 minutes before meals and bedtime Norethindrone (Sharobel) 0.35 MG TABLET 1 TAB PO DAILY CONTROL ( Reported) Ondansetron (Zofran Odt) 4 MG TAB.RAPDIS 1 TAB SL TID [place] Oxcarbazepine (Trileptal) 300 MG TABLET 2 TAB PO BID MENTAL HEALTH (Reported) Oxycodone HCl/Acetaminophen (Percocet 5-325 MG Tablet) 5 MG-325 MG TABLET 1-2 TAB PO Q6P PRN severe pain Pantoprazole Sodium (Protonix) 40 MG TABLET.DR 1 TAB PO BID GI (Reported) Trazodone HCl 100 MG TABLET 1-2 TAB PO QPM PRN SLEEP (Reported) (ANDERSON WU,RADHA) Past History Travel History Traveled to [place] past 21 day No Medical History Any Pertinent Medical History? see below for history Neurological: migraine EENT: L EYE BLIND Cardiovascular: NONE Respiratory: asthma Gastrointestinal: GERD Hepatic: NONE Renal: nephrolithiasis Musculoskeletal: psoariatic arthritis, LUPUS MRSA IN WOUND Psychiatric: anxiety, depression Endocrine: NONE Blood Disorders: NONE Cancer(s): NONE INCIDENT RESPONSE LEAD/Reproductive: OVARIAN CYST POLYCYSTIC OVARY SYNDROME Other Medical Hx: LUPUS History of MRSA: No History of VRE: No History of CDIFF: No Surgical History Surgical History: non-contributory, MULT ABD SX OVARIAN CYST, L AXILLARY MOLE REMOVED Vaginal abscess removal Psychosocial History Who do you live with Family Services at Home None What is your primary language Kinyarwanda Tobacco Use: Never used Family History Family History, If Any: FATHER FH: diabetes mellitus MOTHER FH: breast cancer Hx Contributory? No ([facility]ING WU,[facility]) Review of Systems Review of Systems Constitutional: Reports: see HPI, chills, diaphoresis, fever. Respiratory: Reports: cough, short of breath. Cardiovascular: Reports: see HPI, chest pain. GI: Reports: abdominal pain, bloating, diarrhea, distention, nausea, vomiting. Denies: melena, bloody stool. Genitourinary: Reports: dysuria, frequency, nocturia. Denies: hematuria. (DARLING WU,[facility]) Review of Systems EENTM: Reports: no symptoms. Musculoskeletal: Reports: see HPI. Skin: Reports: no symptoms. Neurological/Psychological: Reports: no symptoms. Hematologic/Endocrine: Reports: no symptoms. Immunologic/Allergic: Reports: see HPI, other. All Other Systems: Reviewed and Negative (RADHA BARRON MD) Physical Exam Physical Exam General Appearance: well developed/nourished, alert, awake, moderate distress, obese Head: atraumatic, normal appearance Eyes: Bilateral: PERRL, EOMI. Respiratory: normal breath sounds Cardiovascular: regular rate/rhythm, normal peripheral pulses Peripheral Pulses: 2+ radial (R), 2+ radial (L) Gastrointestinal: decreased bowel sounds, diffuse lower abdominal tenderness with palpation greatest in the right lower quadrant, Morales sign positive, Back: right CVA tenderness, mild left CVA tenderness Core Measures ACS in differential dx? No Severe Sepsis Present: No Septic Shock Present: No ([facility] WU,[facility]) Physical Exam Ears, Nose, Throat, Mouth: hearing grossly normal, moist mucous membrane Neck: normal inspection, supple, full range of motion, normal alignment Extremities: normal range of motion, no ligament instability Neurologic/Psych: no motor/sensory deficits, awake, alert, oriented x 3, normal gait, chain person II-XII nml as tested Skin: normal color (RADHA BARRON MD) Progress Differential Diagnosis: appendicitis, biliary colic, cholecystitis, diverticulitis, ectopic , gastritis, hepatitis, inflamm bowel dis, intrauterine , kidney stone, ovarian cyst, ovarian torsion, pancreatitis, PID/cervicitis, peptic ulcer, PUD/GERD, perforated viscous, UTI/ pyelo, IBS, Psych Plan of Care: Orders Procedure Date/time Status CULTURE,URINE 01/06 2208 Active URINALYSIS 01/06 2208 Complete C-REACTIVE PROTEIN 01/06 2208 Complete COMPREHENSIVE METABOLIC PANEL 01/06 2208 Complete CBC WITHOUT DIFFERENTIAL 01/06 2208 Complete Laboratory Tests 01/05/172227: Anion Gap 9, Estimated GFR > 60, BUN/Creatinine Ratio 16.7, Glucose 93, Calcium 9.3, Total Bilirubin 0.6, AST 40 H, ALT 58 H, Alkaline Phosphatase 88, C- Reactive Prot, Quant 1.0, Total Protein 7.4, Albumin 4.3, Globulin 3.1, Albumin/ Globulin Ratio 1.4, CBC w Diff NO MAN DIFF REQ, RBC 4.40, MCV 82.8, MCH 27.1, RDW 15.0 H, MPV 7.4, Gran % 67.9, Lymphocytes % 22.3, Monocytes % 7.1, Eosinophils % 1.8, Basophils % 0.9, Absolute Granulocytes 5.7, Absolute Lymphocytes 1.9, Absolute Monocytes 0.6, Absolute Eosinophils 0.2, Absolute Basophils 0.1, PUBS MCHC 32.7 L, Urinalysis MOD H, Urine Color YEL, Urine Clarity HAZY H, Urine pH 8.0, Ur Specific [place] 1.015, Urine Protein TRACE H , Urine Ketones NEG, Urine Nitrite NEG, Urine Bilirubin NEG, Urine Urobilinogen 0.2, Ur Leukocyte Esterase TRACE H, Ur Microscopic SEDIMENT EXAMINED, Urine RBC RARE, Urine WBC 3-5 H, Ur Epithelial Cells MANY H, Urine Bacteria MOD H, Urine Mucus RARE, Urine Hemoglobin NEG, Urine Glucose NEG Microbiology 01/06 2228 URINE ROUT: Urine Culture - RECD Initial ED EKG: none Comments: Patient has had many CTs already. We tried to avoid ct abd/pelvs. We did not repeat a pelvic exam today since we completed one 4 days ago with tests negative for g/c/fungal/trich. She was already treated prophylactically with 2g azithro and 240 genatamicin (cephalosporin allergy). Patient is afebrile at 97.5. Cbc/ bmp/ua unremarkable. Ucx pending. Patient feeling better after toradol + reglan. Will d/c with symptom management medications and f/u with obgyn(her pcp and GI). Pt was in IOP today. ([facility]LING WU,[facility]) Departure Departure Disposition: HOME OR SELF CARE Condition: Stable Referrals: LUISA ORTEGA DO (PCP/Family) Additional Instructions: Please take your medications as perscribed. Please follow up with your OBGYN (PCP) and GI doctor. Please return to the emergency department for any new concerns or worsening symptoms. Departure Forms: Customer Survey General Discharge Information Prescriptions: Current Visit Scripts Metoclopramide HCl (Reglan) 1 TAB PO TID #10 TAB 30 minutes before meals and bedtime Ketorolac Tromethamine 1 TAB PO TID #10 TAB ([facility] WU,[facility]) Departure Clinical Impression Primary Impression: Abdominal pain Qualifiers: Abdominal location: generalized Qualified Code: R10.84 - Generalized abdominal pain Secondary Impressions: Pelvic pain Resident Co-Sign Statement Statement: ED Attending supervision documentation- x I saw and evaluated the patient. I have also reviewed all the pertinent lab results and diagnostic results. I agree with the findings and the plan of care as documented in the Resident's documentation. [] I have reviewed the ED Record and agree with the Resident's documentation. [] Additions or exceptions (if any) to the Resident's note and plan are summarized below: [] (ANDERSON WU,RADHA)
[2017-01-05] MEDS ORDERED: KETOROLAC TROME10 M1 PO (23:30)
[2017-01-05] MEDS ORDERED: REGLAN10 M1 PO (23:30)
== END 2017-01-05 23:44 ==
LOC: ERH 19:29
DX: R10.2 Pelvic and perineal pain (principal); R10.9 Unspecified abdominal pain
CPT/HCPCS: 81001; 87086; 96372; J1885; J2765

== ENCOUNTER 2017-07-05 05:11 | Inpatient (IN) | payer OTHER ==
[~2017-07-05] VITALS: Ht 162.6 cm; Wt 132.9 kg
[~2017-07-05 05:11] MED LIST changes: +BENTYL10 M1 PO; +CARAFATE1 G1 PO; +OXCARBAZEPINE300 M1 PO
--- NOTE | 2017-07-05 13:54 | Operative Report ---
Operative/Inv Procedure Report Surgery Date: 07/05/17 Name of Procedure: Laparoscopic Sleeve Gastrectomy, Laparoscopic Hiatal hernia repair Pre-Operative Diagnosis: Morbid Obesity BMI 51, GERD, JUMANA, Fibromyalgia, Hiatal hernia Post-Operative Diagnosis: Same Estimated Blood Loss: less than 50ml Surgeon/Hatchery Attendant: Alvarado Mcginnis DO Anesthesia: general endotracheal tube IV Fluids: 800 cc Drains: None Specimens: Stomach Complications: None Condition: Stable Operative Indication: This is a 22 female presented to the office for workup for bariatric surgery. After appropriate workup was completed I discussed with the patient the band, the sleeve, and the gastric bypass. Given the patient's long-standing history of abdominal pain of unknown origin I recommended the patient have a sleeve gastrectomy versus a gastric bypass. The patient agreed to undergo a sleeve gastrectomy. All risks including but not limited to bleeding, infection, leak, stricture, injury to surrounding bowel/esophagus/stomach/liver/spleen, long-term reflux, DVT/PE, and mortality of 06/999 patients were discussed in detail. The patient understood everything and decided to proceed. Operative/Procedure Note Note: The patient was brought to the operating room and placed on the operating room table in supine position. Venodyne stockings were placed and adequate general endotracheal anesthesia was obtained. The patient was prepped and draped in standard surgical fashion. Began the procedure by making a 2 cm transverse incision supraumbilically and slightly to the left of the midline. Then using a 12 mm clear Visiport and a 10 mm 0 laparoscope, the abdominal cavity was accessed. Great care was taken to go through the anterior rectus sheath, the posterior rectus sheath, and through the peritoneum. Once we entered the peritoneum the abdominal cavity was insufflated to 15 mmHg. Upon initial examination no obvious gross pathology was seen. Accessory trocars were placed, 5 mm in the epigastrium for the [place] liver retractor. The retractor was inserted and the liver was retracted anteriorly exposing the hiatus, small hiatal hernia was seen. 5 mm ports were placed in the right and left upper quadrant, a 5 mm left lateral port, and a 15 mm right lateral port. Began the procedure by mobilizing the greater curvature of the stomach approximately 7 cm from the pylorus. Once the retrogastric space was reached the whole greater curvature was mobilized maintaining hemostasis using Harmonic scalpel. Full hiatal dissection was performed, a small hiatal hernia was seen. The left prasanna of the diaphragm was dissected away from the esophagus, reducing the hernia sac. We then brought our attention to the right prasanna, the pars flaccida was opened until the right prasanna was clearly visualized. Following this the right prasanna was dissected away from the esophagus as well and the esophagus was circumferentially dissected out of the chest. At the completion of dissection the esophagus was in the abdominal cavity for about 2-3 cm. The esophagus was retracted anteriorly and the hiatus was closed using 2-0 Tycron suture. At the completion of the closure there was ample room for the esophagus and the hiatus was adequately closed. Posterior adhesions were taken down using Harmonic scalpel as well. Once the stomach was adequately mobilized a 38 [place] bougie was inserted and placed along the lesser curvature of the stomach. Once the bougie was in the appropriate position we began creating our sleeve, two 60 mm black staple loads with seamguard followed by three 60 mm purple staple loads with seamguard as well. Great care was taken to leave ample room at the incisura angularis, to prevent any twisting or kinking of the sleeve, to stay lateral to the esophagogastric fat pad, and to do a full fundal excision. At the completion of the staple line the staple line was examined, it appeared intact and some bleeding was noted which was controlled with endoclips. The bougie was removed, the sleeve was lying nicely without any twisting or kinking. The resected stomach was removed through the right lateral port site. The port and the left upper quadrant were irrigated until clear. All ports were removed under direct visualization no obvious bleeding was noted. The 15 mm port site fascia was closed using 0 Vicryl suture. The skin was closed using 4-0 Monocryl. Steri-Strips and dressings were placed. The patient was successfully extubated and transferred to the recovery room in stable condition. The patient tolerated the procedure well with no complications. Findings: 3-4 cm hiatal hernia, 38 Fr Bougie CC: Casi Arnold DO
--- NOTE | 2017-07-05 14:30 | Admission Core Measures ---
Acute Coronary Syndrome (CM) ACS Core Measures Acute Coronary Syndrome Diagnosis No Congestive Heart Failure (NEW) CHF Core Measures Congestive Heart Failure Diagnosis No Cerebrovascular Accident (NEW) CVA Core Measures CVA/TIA Diagnosis No Venous Thromboembolism VTE Core Carlos Eduardo (View Protocol) VTE Risk Factors Surgery No Mechanical VTE Prophylaxis d/t N/A MechProphylax Ordered No VTE Pharm Prophylaxis d/t NA PharmProphylax ordered Problem List As ranked by this Provider includes Assessment & Plan 1. History of repair of hiatal hernia 2. S/P laparoscopic sleeve gastrectomy 3. Morbid obesity HOME MEDS Home Med List Albuterol Sulfate (Proair Hfa) 90 MCG HFA.AER.AD 2 PUF INH PRN ASTHMA ( Reported) Clonazepam 0.5 MG TABLET 1 TAB PO TIDPRN PRN ANXIETY (Reported) Fluoxetine HCl (Prozac) 20 MG CAPSULE 3 CAP PO DAILY MENTAL HEALTH (Reported) Folic Acid 1 MG TABLET 1 TAB PO BID SUPPLEMENT (Reported) Oxcarbazepine (Trileptal) 300 MG TABLET 2 TAB PO DAILY MENTAL HEALTH ( Reported) Oxcarbazepine 300 MG TABLET 3 TAB PO QPM MENTAL HEALTH (Reported) Pantoprazole Sodium (Protonix) 40 MG TABLET.DR 1 TAB PO BID GI (Reported) Trazodone HCl 100 MG TABLET 2 TAB PO QPM SLEEP (Reported)
--- NOTE | 2017-07-05 14:32 | Surg Short-stay <48hrs Dis Sum ---
Visit Information Visit Dates Admission Date: 07/05/17 Discharge Date: 07/07/17 Surgical Short Stay DC Summary Admission Diagnosis: Morbid Obesity BMI 51, GERD, JUMANA, Fibromyalgia, Hiatal hernia Final Diagnosis: SAME ABOVE, S/P Surgery Date: 07/05/17 Name of Procedure: Laparoscopic Sleeve Gastrectomy, Laparoscopic Hiatal hernia repair Procedure(s): Surgery Date: 07/05/17 Name of Procedure: Laparoscopic Sleeve Gastrectomy, Laparoscopic Hiatal hernia repair Summary/Significant Findings: Electively scheduled laparoscopic sleeve gastrectomy,and hiatal hernia repair on 07/05/17 by for history of morbid obesity (BMI 51), GERD, JUMANA, Fibromyalgia, and hiatal hernia. Started on stage 1 bariatric diet immediately post-operatively. She was kept npo for post-op day#1 morning, when an upper gi study was done to rule out leak and obstruction. Pain control transitioned from iv to oral pain medication as able. Lovenox teaching done prior to discharge to home. Her home medications were continued post-operatively. She was discharged home on post-op day#2 once tolerating a stage 1 bariatric diet, pain controlled with hycet, and passing flatus. Condition at Discharge: stable Discharge Disposition: home or self care Discharge instructions provided to patient/family: Yes Post discharge follow-up plan: one week follow up with continue lovenox injections as directed Copies to: Casi Arnold DO
--- NOTE | 2017-07-05 16:11 | Patient Discharge Instructions ---
Discharge Instructions General Discharge Information You were seen/treated for: Morbid Obesity BMI 51, GERD, JUMANA, Fibromyalgia, Hiatal hernia You had these procedures: Surgery Date: 07/05/17 Name of Procedure: Laparoscopic Sleeve Gastrectomy, Laparoscopic Hiatal hernia repair Watch for these problems: fever>101.3, increased pain, redness/swelling/drainage, dizziness, shortness of breath, chest pains No bath, but you may shower: Yes Other wound care: ok to remove outer dressings. leave white steri strips in place. keep incisions clean & dry. Diet Continue normal diet: No Recommended Diet: Bariatric Additional DIET Information: weekly bariatric stage diet advancement as directed, as tolerated Activity Full Activity/No Limits: No Activity Self Limited: Yes Pounds, do NOT lift more than: 10 Other activity limits: walk frequently. continue lovenox injections, as directed. Acute Coronary Syndrome Inclusion Criteria At DC or during hospital stay patient has or had the following: ACS DIAGNOSIS No Discharge Core Measures Meds if any: Prescribed or Continued at Discharge Meds if any: NOT Prescribed or Continued at Discharge Congestive Heart Failure Inclusion Criteria At DC or during hospital stay patient has or had the following: CHF DIAGNOSIS No Discharge Core Measures Meds if any: Prescribed or Continued at Discharge Meds if any: NOT Prescribed or Continued at Discharge Cerebrovascular accident Inclusion Criteria At DC or during hospital stay patient has or had the following: CVA/TIA Diagnosis No Discharge Core Measures Meds if any: Prescribed or Continued at Discharge Meds if any: NOT Prescribed or Continued at Discharge Venous thromboembolism Inclusion Criteria VTE Diagnosis No VTE Type NONE VTE Confirmed by (Test) NONE Discharge Core Measures - Per Current guidelines, there needs to be overlap - treatment for the first 5 days of Warfarin therapy. - If discharged on Warfarin prior to 5 days of - overlap therapy, the patient will need to be - assessed for post discharge needs including - *Post discharge parental anticoagulation - *Warfarin and/or parental anticoagulation education - *Follow up date to check INR post discharge At least 5 days overlap therapy as Inpatient No Meds if any: Prescribed or Continued at Discharge Note: Overlap Therapy is Warfarin and Anticoagulant Meds if any: NOT Prescribed or Continued at Discharge
[2017-07-05] MEDS ORDERED: HYCET 7.5 MG-3473 ML PO (16:14)
[2017-07-05] MEDS ORDERED: LOVENOX40 MG/0.1 SC (16:14)
[2017-07-05] MEDS ORDERED: PROTONIX40 M3 PO (16:14)
--- NOTE | 2017-07-05 16:56 | PN- Bariatrics ---
Subjective Subjective: Postop check: Patient complains of epigastric pain, otherwise no complaints, no nausea no vomiting Objective Vital Signs and I&Os Heart rate 115, blood pressure 122/80, afebrile Physical Exam: Well-developed well-nourished no apparent distress. HEENT: Atraumatic, extraocular motion intact Neck: Supple, no lymphadenopathy Respiratory: No respiratory distress Abdomen: Nondistended, tenderness in the epigastric, dressings clean dry and intact Extremities: no calf pain Neuro: Alert and oriented x3 Psych: Mood affect normal, normal memory normal judgment. Skin: Warm and dry, no rash on exposed skin Assessment/Plan Assessment/Plan Postop day #0 status post labs laparoscopic sleeve gastrectomy and hiatal hernia repair Bariatric stage I diet npo after midnight for possible upper GI study in the morning A.m. labs IV fluids Heparin subcutaneous for DVT prophylaxis ALPS for DVT prophylaxis Pain medication as needed including Toradol IV GI prophylaxis Out of bed, ambulate Antiemetics when necessary Lovenox out pt Problem List: 1. Morbid obesity Core Measures Venous Thromboembolism VTE Risk Factors Surgery No Mechanical VTE Prophylaxis d/t N/A MechProphylax Ordered No VTE Pharm Prophylaxis d/t NA PharmProphylax ordered
[2017-07-05 17:30] VITALS: BP 120/80
[2017-07-05 22:40] VITALS: BP 124/78
[2017-07-06] VITALS (7 sets, daily range): BP systolic 118–260; BP diastolic 0–86
--- NOTE | 2017-07-06 08:43 | PN- Bariatrics ---
See Addendum Subjective Subjective: No acute overnight events reported. Patient continues to complain of pain, points to upper abdomen mainly. Has been belching, no hiccuping. C/O nausea, attributes it to pain, states that it resolves with pain medication. No emesis. No flatus. Has been oob ambulating. Has voided. Objective Vital Signs and I&Os Vital Signs Date Time Temp Pulse Resp B/P B/P Pulse O2 O2 Flow FiO2 Mean Ox Delivery Rate 07/06 0600 Nasal 4.5L Cannula 07/06 0521 97.8 105 22 130/86 96 07/06 0132 98.1 87 20 122/86 93 Room Air 07/06 0000 Nasal 4.5L Cannula 07/05 2240 98.7 112 20 124/78 94 Nasal 4.5L Cannula 07/05 2134 Nasal 4.5L Cannula 07/05 1999 Nasal 4.5L Cannula 07/05 1730 99 Part 45% ReBreather 07/05 1730 98.9 111 17 120/80 92 Room Air Intake & Output 07/06 1600 07/06 0800 07/06 0000 07/05 1600 07/05 0800 07/05 0000 Intake Total 840 780 Output Total 400 700 720 Balance -400 140 60 Intake, IV 600 300 Intake, Oral 240 480 Output, Urine 400 700 720 Patient 293 lb Weight Weight Reported by Patient Measurement Method Physical Exam: General: Alert and oriented x3, no acute distress Cardiac: RRR, s1s2 Pulm: Nonlabored respiratory effort, nasal cannula o2 in place, bilateral lung sounds clear Abdomen: Obese, non-distended, dressings intact, khurram-incisional tenderness, + bs auscultated but hypoactive, no drain Extremities: Moves all extremities, distal sensation intact. Skin warm and well perfused. DP pulses palpable bialterally. Bilateral calves soft and non- tender. Assessment/Plan Assessment/Plan This is a 22 year old female, POD 1, s/p laparoscopic sleeve gastrectomy with hh repair. PMH significant for JUMANA, GERD, fibromyalgia, chronic pain issues. -Transition from iv pain medication to po -OOB, ambulate -Incentive spirometry encouraged -Upper GI series this am due to complaints of persistent pain -IV protonix for gi ppx -Hep sub q for dvt ppx -Will advance diet to bariatric stage 1 following study -Possible dc to home today pending series and pain control Will discuss with Dr. Mcginnis Core Measures Venous Thromboembolism VTE Risk Factors Surgery No Mechanical VTE Prophylaxis d/t N/A MechProphylax Ordered No VTE Pharm Prophylaxis d/t NA PharmProphylax ordered
--- NOTE | 2017-07-06 12:39 | RADIOLOGY REPORT ---
EXAMINATION: FLUOROSCOPY UPPER GI WITH GASTROGRAFIN WITH KUB CLINICAL INFORMATION: 1 day status post laparoscopic gastric sleeve procedure. Postoperative evaluation. Rule out leak/obstruction. COMPARISON: None. TECHNIQUE: A limited Gastrografin upper GI study was performed using 30 ml of Gastroview with the patient in the semiupright position. Multiple (7) spot films and one cine fluoroscopy run were acquired. FINDINGS: The preliminary survey rodman view of the abdomen demonstrates postsurgical suture line in the epigastric region. Mild gaseous distention of bowel loops is seen without abnormal bowel distention noted. Esophageal distensibility and motility is normal. The GE junction is located below the level of the diaphragm and no GE reflux seen. The remnant stomach is normal with no abnormal distention or contrast leak seen. There is prompt emptying of contrast into the duodenum, which is unremarkable in appearance. FLUOROSCOPY TIME: 44 seconds. IMPRESSION: Unremarkable examination with no evidence of contrast leak or gastric outlet obstruction status post laparoscopic gastric sleeve procedure.
[2017-07-07 05:27] VITALS: BP 124/86
[2017-07-07] MEDS ORDERED: PROTONIX40 M3 PO (07:37)
[2017-07-07] MEDS ORDERED: HYCET 7.5 MG-3473 ML PO (07:37)
--- NOTE | 2017-07-07 07:45 | PN- Bariatrics ---
Subjective Subjective: Tolerating stage 1 diet. No nausea at the moment, but she admits to some yesterday. Denies flatus or bms. Voiding well. States she ambulated 5 times yesterday without dizziness. No shortness of breath. No chest pains. She states her mother will be doing her lovenox injections at home, and she has a prescription for this already. When discussing her discharge, she stated "I'm worried about my pain", and pleaded for one more dose of iv dilaudid. Objective Vital Signs and I&Os Vital Signs Date Time Temp Pulse Resp B/P B/P Pulse O2 O2 Flow FiO2 Mean Ox Delivery Rate 07/07 0600 94 Room Air 07/07 0527 98.8 88 22 124/86 94 Room Air 07/06 2229 99.1 87 20 122/80 93 Room Air 07/06 2200 93 Room Air Room Air 07/06 1405 98.2 79 18 118/60 99 Nasal 4.5L Cannula 07/06 1400 93 Room Air Room Air 07/06 0800 99 Nasal 4.5L Cannula Intake & Output 07/07 0800 07/07 0000 07/06 1600 07/06 0800 07/06 0000 07/05 1600 Intake Total 1210 1575 1080 840 780 Output Total 650 350 800 700 720 Balance 560 1225 280 140 60 Intake, IV 1000 1125 750 600 300 Intake, Oral 210 450 330 240 480 Output, Urine 650 350 800 700 720 Patient 293 lb Weight Weight Reported by Patient Measurement Method Physical Exam: General - alert & oriented x 3. comfortable appearing. no acute distress. Lungs - clear bilaterally. no w/r/r. Cardiac - s1s2. reg. Abdomen - soft. dressings c/d/i. expected khurram-incisional tenderness. Extremities - warm bilaterally. no c/c/e. calves soft and nontender b/l. Current Medications: Current Medications Sig/Butch Start time Last Medication Dose Route Stop Time Status Admin Acetaminophen 1,000 MG Q6 07/05 1800 DC 07/06 N/A 1 UNIT IV 07/06 1214 0457 Albuterol Sulfate 2 PUF Q4 PRN 07/05 1430 AC INH Bisacodyl 10 MG ONCE ONE 07/07 0745 AC VT 07/07 0746 Clindamycin 900 MG IQ8 07/05 2000 DC 07/06 Dextrose/Water 50 ML IV 07/06 0844 0905 Clonazepam 0.5 MG TID PRN 07/05 1430 AC 07/06 PO 07/12 1429 2143 Dexamethasone 8 MG ONCE PRN 07/05 1430 AC IV PUSH Dextrose/Lactated 1,000 ML Q8H 07/05 1430 AC 07/07 Ringer's IV 0322 Fluoxetine HCl 60 MG DAILY 07/06 1000 AC 07/06 PO 1254 Heparin Sodium 5,000 UNIT Q8 07/05 2200 AC 07/07 (Porcine) SC 0535 Hydrocodone Bitart/ 15 ML Q6P PRN 07/05 1230 AC 07/06 Acetaminophen PO 2142 Hydromorphone HCl 1 MG Q4P PRN 07/05 1230 AC 07/07 IV 07/07 0900 0320 Ketorolac 30 MG Q6 07/05 1800 AC 07/07 Tromethamine IV 0536 Ondansetron HCl 4 MG Q6P PRN 07/05 1230 AC 07/07 IV 0328 Oxcarbazepine 600 MG DAILY 07/06 1000 AC 07/06 PO 1254 Oxcarbazepine 900 MG QPM 07/05 2200 AC 07/06 PO 2143 Pantoprazole Sodium 40 MG DAILY 07/06 1000 AC 07/06 IV 0905 Simethicone 40 MG Q6P PRN 07/05 1230 AC 07/07 PO 0328 Trazodone HCl 100 MG .STK-MED ONE 07/06 213 DC PO 07/06 213 Trazodone HCl 100 MG AT BEDTIME NEED.. 07/05 1430 AC 07/06 PO 2143 Results Last 48 Hours of Labs: Laboratory Tests 07/06 07/06 07/05 1720 0600 0939 Chemistry Sodium Cancelled Potassium Cancelled Chloride Cancelled Carbon Dioxide Cancelled Anion Gap Cancelled BUN Cancelled Creatinine Cancelled BUN/Creatinine Ratio Cancelled Glucose Cancelled Magnesium Cancelled Hematology WBC Cancelled RBC Cancelled Hgb Cancelled Hct Cancelled MCV Cancelled MCH Cancelled MCHC Cancelled RDW Cancelled Plt Count Cancelled MPV Cancelled Urines Urine Test NEGATIVE Assessment/Plan Assessment/Plan This is a 22 year old female with hx JUMANA, GERD, fibromyalgia, chronic pain, now POD#2 s/p laparoscopic sleeve gastrectomy with hh repair tolerating stage 1 diet d/c iv dilaudid. hycet prn pain dulcolax x 1 oob/ambulation encouraged lovenox teaching. hep sc - dvt ppx protonix - gi ppx d/c home later today will d/w Core Measures Venous Thromboembolism VTE Risk Factors Surgery No Mechanical VTE Prophylaxis d/t N/A MechProphylax Ordered No VTE Pharm Prophylaxis d/t NA PharmProphylax ordered
[2017-07-07 08:50] LABS: ABSOLUTE BASOPHIL COUNT 0 /CUMM (0.0-0.2); ABSOLUTE EOSINOPHIL COUNT 0.1 /CUMM (0.0-0.7); ABSOLUTE MONOCYTE COUNT 0.7 /CUMM (0.10-0.60); MEAN CORPUSCULAR HGB 27.4 PG (27.0-31.0); RBC DISTRIBUTION WIDTH 16.1 % (11.5-14.5); WHITE BLOOD CELL COUNT 7.5 /CUMM (4.8-10.8)
[2017-07-07 08:58] LABS: ABSOLUTE GRANULOCYTE CT 4.3 /CUMM (1.4-6.5); ABSOLUTE LYMPH COUNT 2.3 /CUMM (1.2-3.4); BASOPHIL % 0.5 % (0.0-2.0); EOSINOPHIL % 1.1 % (0-5); GRANULOCYTE % 57.7 % (42.2-75.2); MEAN CORPUSCULAR HGB CONC 32.8 G/DL (33.0-37.0); MEAN CORPUSCULAR VOLUME 83.6 FL (81.0-99.0); MEAN PLATELET VOLUME 8.3 FL (7.4-10.4); PLATELET COUNT 186 /CUMM (130-400)
[2017-07-07 09:01] LABS: HEMATOCRIT 29.3 % (37-47)
[2017-07-08] MEDS ORDERED: ZOFRAN ODT4 M1 SL (21:41)
== END 2017-07-07 13:23 | DRG 403 ==
LOC: SDA 05:11 → 2NB 05:11 → SDA 07:00 → EDBEDREQ 14:37 → ENRESERV 15:24 → CANRESERV 15:24 → ENRESERV 16:01 → ENTRNSPT 16:46 → 2NB 17:11 → CMPTRNSPT 17:23 → ENPENDDIS 07-07 07:49 → 2NB 07-07 13:23
PROVIDERS: Physician Assistant Surgical
PROC: 0DB64Z3 Excision of Stomach, Percutaneous Endoscopic Approach, Vertical (ICD-10-PCS; principal; 2017-07-05)
PROC: 0BQT4ZZ Repair Diaphragm, Percutaneous Endoscopic Approach (ICD-10-PCS; 2017-07-05)
DX: E66.01 Morbid (severe) obesity due to excess calories (principal); Z68.43 Body mass index [BMI] 50.0-59.9, adult; K44.9 Diaphragmatic hernia without obstruction or gangrene; G47.33 Obstructive sleep apnea (adult) (pediatric); K21.9 Gastro-esophageal reflux disease without esophagitis; F32.9 Major depressive disorder, single episode, unspecified; L40.50 Arthropathic psoriasis, unspecified; M79.7 Fibromyalgia; G89.29 Other chronic pain
CPT/HCPCS: 2NBP; 36415; 71046; 74240; 81025; 82436; 88307; 93005; 93010; C9399; J0131; J1100; J1630; J1644; J1885; J2405

== ENCOUNTER 2017-08-08 15:28 | Emergency (ER) | payer OTHER ==
[~2017-08-08] VITALS: Ht 162.6 cm; Wt 119.7 kg
[~2017-08-08 15:28] MED LIST changes: +HYCET 7.5 MG-3473 ML PO; +LOVENOX40 MG/0.1 SC; +PYRIDIUM200 M1 PO
[2017-08-08 15:48] LABS: ABSOLUTE BASOPHIL COUNT 0 /CUMM (0.0-0.2); ABSOLUTE EOSINOPHIL COUNT 0.1 /CUMM (0.0-0.7); ABSOLUTE GRANULOCYTE CT 4.2 /CUMM (1.4-6.5); ABSOLUTE LYMPH COUNT 1.5 /CUMM (1.2-3.4); ABSOLUTE MONOCYTE COUNT 0.5 /CUMM (0.10-0.60); BASOPHIL % 0.5 % (0.0-2.0); EOSINOPHIL % 2.2 % (0-5); GRANULOCYTE % 65.8 % (42.2-75.2); HEMATOCRIT 39.1 % (37-47); MEAN CORPUSCULAR HGB 27.6 PG (27.0-31.0); MEAN CORPUSCULAR HGB CONC 33.3 G/DL (33.0-37.0); MEAN CORPUSCULAR VOLUME 82.9 FL (81.0-99.0); MEAN PLATELET VOLUME 8.8 FL (7.4-10.4); PLATELET COUNT 234 /CUMM (130-400); RBC DISTRIBUTION WIDTH 16.4 % (11.5-14.5); RED BLOOD CELL CT 4.72 /CUMM (4.20-5.40); WHITE BLOOD CELL COUNT 6.4 /CUMM (4.8-10.8)
--- NOTE | 2017-08-08 17:31 | ED CARDIAC/CP/PALPITATIONS ---
History of Present Illness General Chief Complaint: Chest Pain Stated Complaint: CHEST PAIN Source: patient, family, old records Exam Limitations: no limitations Vital Signs & Intake/Output Vital Signs & Intake/Output Vital Signs Date Time Temp Pulse Resp B/P B/P Pulse O2 O2 Flow FiO2 Mean Ox Delivery Rate 08/08 1546 97.2 85 18 117/80 99 Room Air Room Air Allergies Coded Allergies: cefaclor (Severe, ANAPHYLAXIS 12/11/16) Sulfa (Sulfonamide Antibiotics) (THROAT CLOSURE 12/11/16) Reconcile Medications Albuterol Sulfate (Proair Hfa) 90 MCG HFA.AER.AD 2 PUF INH Q4P PRN ASTHMA ( Reported) Clonazepam 0.5 MG TABLET 1 TAB PO TIDPRN PRN ANXIETY (Reported) Enoxaparin Sodium (Lovenox) 40 MG/0.4 ML SYRINGE 0.4 ML SC DAILY blood clot risk reduction prescription filled pre-operatively Famotidine (Pepcid) 20 MG TABLET 1 TAB PO BID abdominal pain Fluoxetine HCl (Prozac) 20 MG CAPSULE 3 CAP PO DAILY MENTAL HEALTH (Reported) Folic Acid 1 MG TABLET 1 TAB PO BID SUPPLEMENT (Reported) Hydrocodone/Acetaminophen (Hycet 7.5 MG-325 MG/15 Ml Soln) 7.5 MG-325 MG/15 ML SOLUTION 15 ML PO Q4-6 PRN PRN pain control tylenol alternatively. do not combine Nitrofurantoin Monohyd/M-Cryst (Macrobid 100 MG Capsule) 100 MG CAPSULE 1 CAP PO BID UTI with food Ondansetron (Zofran Odt) 4 MG TAB.RAPDIS 1 TAB SL TID PRN NAUSEA Oxcarbazepine (Trileptal) 300 MG TABLET 2 TAB PO DAILY MENTAL HEALTH ( Reported) Oxcarbazepine 300 MG TABLET 3 TAB PO QPM MENTAL HEALTH (Reported) Pantoprazole Sodium (Protonix) 40 MG TABLET.DR 1 TAB PO DAILY ulcer risk reduction . Phenazopyridine HCl (Pyridium) 200 MG TABLET 1 TAB PO TID PRN BLADDER SPASMS Trazodone HCl 100 MG TABLET 2 TAB PO QPM SLEEP (Reported) Triage Note: PT TO ED WITH C/O UPPER ABD PAIN SINCE THIS AFTERNOON WHILE SHOPPING WITH GRANDMOTHER, DENIES FALL OR INJURY OR HEAVY LIFTING, PT HAD RECENT GASTRIC SLEEVE DONE IN JUNE. C/O NAUSEA, DENIES VOMITING OR DIARRHEA. Triage Nurses Notes Reviewed? yes Onset: Gradual Duration: hour(s): Timing: single episode today Quality/Severity: sharp Location: epigastric Radiation: left LUQ : No Patient currently breastfeeds: No HPI: 22yo female with hx of gastric sleeve surgery Jun 2017 presents to ED complaining of epigastric pain beginning a few hours prior to arrival. Abdominal pain is described as epigastric radiating to left upper quadrant, 8/10 , sharp. Patient has no history of a similar pain. Patient also reports nausea. She states that since gastric sleeve she has had less appetite and has been drinking less, today she did not eat anything. She denies vomiting, constipation, diarrhea, fevers, chills, sick contacts. Past History Travel History Traveled to [place] past 21 day No Medical History Any Pertinent Medical History? see below for history Neurological: migraine EENT: allergies, L EYE BLIND Cardiovascular: NONE Respiratory: obstructive sleep apnea Gastrointestinal: GERD, irritable bowel syndrome, HERNIA GASTRIC SLEEVE JUN 2017 Hepatic: NONE Renal: nephrolithiasis, UTI Musculoskeletal: NONE, psoariatic arthritis, MRSA IN WOUND Psychiatric: bipolar disease, depression Endocrine: obesity Blood Disorders: NONE Cancer(s): NONE DOCTOR OF NURSE ANESTHESIA/Reproductive: OVARIAN CYST POLYCYSTIC OVARY SYNDROME Other Medical Hx: LUPUS History of MRSA: Yes History of VRE: No History of CDIFF: No Surgical History Surgical History: GASTRIC BYPASS SURGERY Psychosocial History Who do you live with Family Services at Home None What is your primary language Guyanese Tobacco Use: Never used ETOH Use: denies use Illicit Drug Use: denies illicit drug use Family History Family History, If Any: FATHER FH: diabetes mellitus MOTHER FH: breast cancer Hx Contributory? No Review of Systems Review of Systems Constitutional: Reports: no symptoms. EENTM: Reports: no symptoms. Respiratory: Reports: no symptoms. Cardiovascular: Reports: no symptoms. GI: Reports: see HPI. Genitourinary: Reports: no symptoms. Musculoskeletal: Reports: no symptoms. Skin: Reports: no symptoms. Neurological/Psychological: Reports: no symptoms. Hematologic/Endocrine: Reports: no symptoms. Immunologic/Allergic: Reports: no symptoms. All Other Systems: Reviewed and Negative Physical Exam Physical Exam General Appearance: well developed/nourished, no apparent distress, alert, awake , obese Head: atraumatic, normal appearance Eyes: Bilateral: normal appearance. Ears, Nose, Throat: hearing grossly normal Neck: normal inspection, supple, full range of motion Respiratory: normal breath sounds, no respiratory distress, lungs clear Cardiovascular: regular rate/rhythm Peripheral Pulses: 2+ radial (R), 2+ radial (L) Gastrointestinal: normal bowel sounds, soft, no organomegaly, epigastric tenderness Back: normal inspection, normal range of motion Extremities: normal inspection, normal range of motion Neurologic/Psych: awake, alert, oriented x 3 Skin: intact, normal color, warm/dry Core Measures ACS in differential dx? Yes CVA/TIA Diagnosis No Sepsis Present: No Sepsis Focused Exam Completed? No Progress Differential Diagnosis: cholecystitis, costochondritis, musculoskeletal pain, myocarditis, pancreatitis, pericarditis, pneumonia, pneumothorax, PSVT, pulmonary embolism, unstable angina Plan of Care: Orders Procedure Date/time Status Add-on Test (ER Only) 08/08 1755 Active URINALYSIS 08/08 1755 Complete LIPASE 08/08 1539 Complete HUMAN BETA HCG SCREEN 08/08 1539 Complete TROPONIN LEVEL 08/08 1531 Complete COMPREHENSIVE METABOLIC PANEL 08/08 1531 Complete CBC WITHOUT DIFFERENTIAL 08/08 1531 Complete EKG 08/08 1530 Active Laboratory Tests 08/08/17 1815: Urine Color YEL, Urine Clarity HAZY H, Urine pH 6.0, Ur Specific Bernard 1.025, Urine Protein NEG, Urine Ketones NEG, Urine Nitrite NEG, Urine Bilirubin NEG, Urine Urobilinogen 0.2, Ur Leukocyte Esterase SMALL H, Ur Microscopic SEDIMENT EXAMINED, Urine RBC 1-3, Urine WBC 1-3 H, Ur Epithelial Cells FEW, Urine Bacteria MOD H, Urine Mucus MOD H, Urine Hemoglobin NEG, Urine Glucose NEG 08/08/17 1539: Anion Gap 13, Estimated GFR > 60, BUN/Creatinine Ratio 10.0, Glucose 111 H, Calcium 9.7, Total Bilirubin 0.4, AST 20, ALT 40, Alkaline Phosphatase 65, Troponin I < 0.01, Total Protein 7.4, Albumin 4.5, Globulin 2.9, Albumin/ Globulin Ratio 1.6, Lipase 85, Total Beta HCG NEGATIVE, CBC w Diff NO MAN DIFF REQ, RBC 4.72, MCV 82.9, MCH 27.6, MCHC 33.3, RDW 16.4 H, MPV 8.8, Gran % 65.8, Lymphocytes % 23.1, Monocytes % 8.4, Eosinophils % 2.2, Basophils % 0.5, Absolute Granulocytes 4.2, Absolute Lymphocytes 1.5, Absolute Monocytes 0.5, Absolute Eosinophils 0.1, Absolute Basophils 0 Patient reports no relief following Mylanta. The patient reports some relief following Toradol. She is tolerating PO here in the emergency department. Patient had previous CAT scan 2 weeks ago, this is her second CT scan this year. Patient has stable blood work, vital signs are stable as well. Chest x-ray without acute abnormality. Given these findings no further CT imaging obtained today. Patient given strict return precautions. She will begin Pepcid and follow-up with Dr. Mackenzie this week. Patient seen sitting comfortably in stretcher, no acute distress. The patient agrees with the plan of care. The patient was discussed with Dr. Barksdale who agrees with this plan. Diagnostic Imaging: Viewed by Me: Radiology Read. Discussed w/RAD: Radiology Read. Radiology Impression: PATIENT: RADHA HODGES PRESENT AGE: 22 PATIENT ACCOUNT NO: [id number] : 94 LOCATION: [facility] ORDERING PHYSICIAN: Noemi BAKER SERVICE DATE: 08/08/17 EXAM TYPE: RAD - XRY-CHEST XRAY, TWO VIEWS EXAMINATION: CHEST 2 VIEWS CLINICAL INFORMATION: Chest pain. COMPARISON: 07/03/2017. TECHNIQUE: PA and lateral views of the chest were obtained. FINDINGS: The cardiac silhouette is not enlarged. The mediastinal and hilar contours are unremarkable. There are neither pleural effusions nor pneumothoraces. There are no consolidations. The osseous structures are unremarkable. IMPRESSION: No evidence for acute disease. DICTATED BY: Zhang Moore MD DATE/TIME DICTATED:08/08/171843 HOUSE SHORER: DAVID DATE/TIME TRANSCRIBED:08/08/171843 CONFIDENTIAL, DO NOT COPY WITHOUT APPROPRIATE AUTHORIZATION. <Electronically signed in Other Vendor System> SIGNED BY: Zhang Moore MD 08/08/171848 Initial ED EKG: SINUS RHYTHM @74BPM, NONSPECIFIC ST CHANGES Prior EKG: unchanged (07/03/17) Departure Departure Disposition: HOME OR SELF CARE Condition: Stable Clinical Impression Primary Impression: Abdominal pain Qualifiers: Abdominal location: epigastric Qualified Code: R10.13 - Epigastric pain Secondary Impressions: Nausea Referrals: Casi Arnold DO (PCP/Family) Additional Instructions: Begin Pepcid as prescribed for abdominal pain. Increase fluids as tolerated. Follow-up with your GI specialist, call to make an appointment for this week. With any worsening symptoms such as increasing abdominal pain, fevers, vomiting please return to the emergency department. Please note that there might be incidental findings in your evaluation that are unrelated to the current emergency department visit. Please notify your primary care doctor about this emergency department visit in order to obtain and review all of the testing performed so that these incidental findings can be monitored as needed. If you had an x-ray performed, please understand that some fractures may not be seen on the initial set of x-rays. If your symptoms persist you might need a repeat set of x-rays to check for such a fracture. If you had a laceration evaluated, please understand that foreign bodies such as glass or wood may not be visible to the naked eye or on plain x-rays. If the wound becomes red, swollen, increasingly more painful or if there is any drainage from the wound, please have it reevaluated by a physician for the possibility of a retained foreign body. If you're unable to follow up as outlined in the discharge instructions please return to the emergency department. Thank you for choosing the [facility] Emergency Department for your care. It was a pleasure to serve you today. Departure Forms: Customer Survey General Discharge Information Prescriptions: Current Visit Scripts Famotidine (Pepcid) 1 TAB PO BID #20 TAB Critical Care Note Critical Care Note Critical Care Time: non-applicable
--- NOTE | 2017-08-08 18:49 | RADIOLOGY REPORT ---
EXAMINATION: CHEST 2 VIEWS CLINICAL INFORMATION: Chest pain. COMPARISON: 07/03/2017. TECHNIQUE: PA and lateral views of the chest were obtained. FINDINGS: The cardiac silhouette is not enlarged. The mediastinal and hilar contours are unremarkable. There are neither pleural effusions nor pneumothoraces. There are no consolidations. The osseous structures are unremarkable. IMPRESSION: No evidence for acute disease.
[2017-08-08] MEDS ORDERED: PEPCID20 M1 PO (19:47)
[2017-08-08 19:50] VITALS: BP 124/71
== END 2017-08-08 20:00 ==
LOC: ERH 15:28
PROVIDERS: Emergency Medicine
DX: R10.13 Epigastric pain (principal)
CPT/HCPCS: 71046; 81001; 93005; 93010; 96372; J1885; J3101

== ENCOUNTER 2017-09-26 20:39 | Inpatient (IN) | payer OTHER ==
[~2017-09-26] VITALS: Ht 165.1 cm; Wt 118.5 kg
[~2017-09-26 20:39] MED LIST changes: +PEPCID20 M1 PO
[2017-09-26 21:09] LABS: ABSOLUTE BASOPHIL COUNT 0.1 /CUMM (0.0-0.2); ABSOLUTE EOSINOPHIL COUNT 0.2 /CUMM (0.0-0.7); ABSOLUTE GRANULOCYTE CT 3.9 /CUMM (1.4-6.5); ABSOLUTE MONOCYTE COUNT 0.5 /CUMM (0.10-0.60); BASOPHIL % 1.1 % (0.0-2.0); EOSINOPHIL % 2.9 % (0-5); GRANULOCYTE % 58.9 % (42.2-75.2); MEAN CORPUSCULAR HGB 28.3 PG (27.0-31.0); MEAN CORPUSCULAR HGB CONC 33.2 G/DL (33.0-37.0); MEAN CORPUSCULAR VOLUME 85.2 FL (81.0-99.0); MEAN PLATELET VOLUME 8.2 FL (7.4-10.4); PLATELET COUNT 249 /CUMM (130-400); RBC DISTRIBUTION WIDTH 16.1 % (11.5-14.5); RED BLOOD CELL CT 4.58 /CUMM (4.20-5.40); WHITE BLOOD CELL COUNT 6.7 /CUMM (4.8-10.8)
--- NOTE | 2017-09-26 22:14 | ED PSYCHIATRIC COMPLAINT ---
History of Present Illness General Chief Complaint: Psychiatric Related Complaint Stated Complaint: PSYCH EVAL +SI Source: patient, family Exam Limitations: no limitations Vital Signs & Intake/Output Vital Signs & Intake/Output Vital Signs Date Time Temp Pulse Resp B/P B/P Pulse O2 O2 Flow FiO2 Mean Ox Delivery Rate 09/28 1630 Room Air 09/28 1630 Room Air 09/28 1629 100.0 95 124/67 09/28 1430 99.0 87 18 114/60 97 Room Air 09/28 0853 98.4 104 18 114/53 98 Room Air 09/28 0632 98.8 74 18 136/69 97 Room Air 09/28 0038 99.5 89 18 128/78 98 Room Air 09/27 2121 99.6 75 18 117/67 94 Room Air 09/27 1843 97.4 88 18 105/57 98 Allergies Coded Allergies: cefaclor (Severe, ANAPHYLAXIS 12/11/16) Sulfa (Sulfonamide Antibiotics) (THROAT CLOSURE 12/11/16) Reconcile Medications Albuterol Sulfate (Proair Hfa) 90 MCG HFA.AER.AD 2 PUF INH Q4P PRN ASTHMA ( Reported) Clonazepam 0.5 MG TABLET 1 TAB PO TIDPRN PRN ANXIETY (Reported) Enoxaparin Sodium (Lovenox) 40 MG/0.4 ML SYRINGE 0.4 ML SC DAILY blood clot risk reduction prescription filled pre-operatively Famotidine (Pepcid) 20 MG TABLET 1 TAB PO BID abdominal pain Fluoxetine HCl (Prozac) 20 MG CAPSULE 3 CAP PO DAILY MENTAL HEALTH (Reported) Folic Acid 1 MG TABLET 1 TAB PO BID SUPPLEMENT (Reported) Hydrocodone/Acetaminophen (Hycet 7.5 MG-325 MG/15 Ml Soln) 7.5 MG-325 MG/15 ML SOLUTION 15 ML PO Q4-6 PRN PRN pain control tylenol alternatively. do not combine Nitrofurantoin Monohyd/M-Cryst (Macrobid 100 MG Capsule) 100 MG CAPSULE 1 CAP PO BID UTI with food Ondansetron (Zofran Odt) 4 MG TAB.RAPDIS 1 TAB SL TID PRN NAUSEA Oxcarbazepine (Trileptal) 300 MG TABLET 2 TAB PO DAILY MENTAL HEALTH ( Reported) Oxcarbazepine 300 MG TABLET 3 TAB PO QPM MENTAL HEALTH (Reported) Pantoprazole Sodium (Protonix) 40 MG TABLET. 1 TAB PO DAILY ulcer risk reduction . Phenazopyridine HCl (Pyridium) 200 MG TABLET 1 TAB PO TID PRN BLADDER SPASMS Trazodone HCl 100 MG TABLET 2 TAB PO QPM SLEEP (Reported) Triage Note: PT TO ED FOR +SI THOUGHTS, "I CUT MY LEG" STATES DID SOME CUTS YESTERDAY, SOME TODAY. HAS MULTIPLE SMALL SUPERFICIAL, SCABBED OVER LACERATIONS TO RT THIGH. ALSO HAS SCARS FROM OLD CUTS TO SAME THIGH. IS UNSURE OF LAST TETANUS. DENIES ETOH/DRUGS. IS CALM AND COOPERATIVE IN TRIAGE. Triage Nurses Notes Reviewed? yes Onset: Abrupt Duration: hour(s): Timing: recent history : No Patient currently breastfeeds: No HPI: 09/26/17 10:07 PM 22-year-old female presents to the emergency department for depression and suicidal ideation. The patient states she is feeling suicidal and she cut her right leg. She has superficial linear lacerations to the right lateral thigh. She denies other injuries or complaints. She says she has a past medical history of polycystic ovary disease, bipolar disorder, and lupus. (Ian Romeo DO) Past History Travel History Traveled to [place] past 21 day No Medical History Any Pertinent Medical History? see below for history Neurological: migraine EENT: allergies, L EYE BLIND Cardiovascular: NONE Respiratory: obstructive sleep apnea Gastrointestinal: GERD, irritable bowel syndrome, HERNIA GASTRIC SLEEVE JUN 2017 Hepatic: NONE Renal: nephrolithiasis, UTI Musculoskeletal: psoariatic arthritis, MRSA IN WOUND Psychiatric: anxiety, bipolar disease, depression Endocrine: obesity, LUPUS Blood Disorders: NONE Cancer(s): NONE NEWS CLERK/Reproductive: OVARIAN CYST POLYCYSTIC OVARY SYNDROME Other Medical Hx: LUPUS History of MRSA: Yes History of VRE: No History of CDIFF: No Surgical History Surgical History: GASTRIC BYPASS SURGERY Psychosocial History Who do you live with Family Services at Home None What is your primary language Yoruba Tobacco Use: Never used ETOH Use: denies use Illicit Drug Use: denies illicit drug use Family History Family History, If Any: FATHER FH: diabetes mellitus MOTHER FH: breast cancer Hx Contributory? No (Ian Romeo DO) Review of Systems Review of Systems Constitutional: Denies: fever. EENTM: Reports: see HPI. Respiratory: Denies: short of breath. Cardiovascular: Denies: chest pain. GI: Denies: abdominal pain. Genitourinary: Reports: no symptoms. Musculoskeletal: Reports: no symptoms. Skin: Reports: see HPI. Neurological/Psychological: Reports: no symptoms. Hematologic/Endocrine: Denies: bleeding. Immunologic/Allergic: Reports: no symptoms. (Ian Romeo DO) Physical Exam Physical Exam General Appearance: well developed/nourished, alert, awake, anxious, moderate distress Head: atraumatic, normal appearance Eyes: Bilateral: normal appearance. Ears, Nose, Throat: normal ENT inspection Neck: supple Respiratory: no respiratory distress Cardiovascular: regular rate/rhythm Gastrointestinal: non-tender Extremities: evidence of injury Neurological/Psychiatric: awake, alert, anxious Appearance/Memory/Insight: appropriate appearance Behavoir/Eye Contact/Speech: cooperative Thoughts/Hallucinations: no apparent hallucination Skin: intact, normal color SAD PERSONS SAD PERSONS Response Value Depression/Hopelessness? yes 2 Previous Attempts/Psych Care yes 1 Rational Thinking Loss? yes 2 Single//? yes 1 Organized/Serious Attempt yes 2 Social Support? has support 0 Total 8 SAD PERSONS Done? yes (Ian Romeo DO) Progress Differential Diagnosis: drug intoxication, drug overdose, drug withdrawal, DEPRESSION Plan of Care: Orders Procedure Date/time Status Regular Diet 09/28 D Active Continuous Observation Monitor 09/28 1900 Complete Vital Signs 09/28 1619 Complete Inpt Psych Teach/Educate 09/28 1619 Active Nutritional Intake, Monitor 09/28 1619 Active Inpt Psych Auricular Acupunctu 09/28 1619 Active Vital Signs 09/28 1618 Active Inpt Psych Teach/Educate 09/28 1618 Active Nutritional Intake, Monitor 09/28 1618 Active Inpt Psych Auricular Acupunctu 09/28 1618 Active Continuous Observation Monitor 09/28 1500 Complete Lab Add-on Test 09/28 1311 Active Patient Data - inpatient psych 09/28 1308 Active Admit to inpatient psych 09/28 1308 Active Continuous Observation Monitor 09/28 1100 Complete Continuous Observation Monitor 09/28 0700 Complete Vital Signs 09/28 UNK Active Nursing Misc 09/28 UNK Active Activity/Ambulation 09/28 UNK Active Intake & Output 09/26 2239 Complete TSH REFLEX 09/27 2055 Complete LIPID PANEL 09/27 2055 Complete GLYCOSYLATED HGB 09/27 2055 Complete Current Medications Sig/Butch Start time Last Medication Dose Stop Time Status Admin Oxcarbazepine 600 MG DAILY 09/29 0900 AC (Trileptal 150MG Tab) Benztropine Mesylate 1 MG Q6P PRN 09/28 1330 AC (Cogentin 1 MG Tablet) Benztropine Mesylate 1 MG Q6P PRN 09/28 1330 AC (Cogentin) Haloperidol 5 MG Q6P PRN 09/28 1330 AC (Haldol) Haloperidol 5 MG Q6P PRN 09/28 1330 AC (Haldol) Lorazepam 2 MG Q6P PRN 09/28 1330 AC (Ativan) Acetaminophen 650 MG Q6P PRN 09/28 1315 AC 09/28 (Tylenol) 1547 Al Hydroxide/Mg 30 ML Q4-6 PRN PRN 09/28 131 AC Hydroxide (Maalox Plus) Gabapentin 300 MG Q6P PRN 09/28 131 AC (Neurontin) Magnesium Hydroxide 30 ML AT BEDTIME NEED.. 09/28 1315 AC (Milk Of Magnesia) Omeprazole 40 MG DAILY AC 09/28 1315 AC 09/28 (Prilosec) 1404 Oxcarbazepine 900 MG QPM 09/27 2100 AC 09/27 (Trileptal 150MG Tab) 2038 Trazodone HCl 200 MG QPM 09/27 2100 AC 09/27 (Desyrel) 2038 Albuterol Sulfate 2 PUF Q4P PRN 09/27 194 AC (Ventolin) Clonazepam 0.5 MG TIDPRN PRN 09/27 1944 AC (KlonoPIN) 10/05 1943 Fluoxetine HCl 60 MG DAILY 09/27 193 AC 09/28 (Prozac) 1025 Initial ED EKG: none (Ian Romeo DO) Comments: 09/27/2017 2:21:42 PM patient signed out to me by Dr. Do at shift private branch exchange operator. Patient will be admitted to inpatient psychiatry when a bed becomes available. 09/27/2017 7:28:27 PM patient signed out to me by Dr. Do at shift private branch exchange operator. Patient has had an uneventful emergency department stay during the day shift. Patient signed out to Dr. Medrano at shift private branch exchange operator. (Apolonia WU,Ian Paez) Hand-Off Endorsed To: Sam Matthew MD Endorsed Time: 0700 Pending: consult (Marcela WU,Vaughn Caro) Hand-Off Endorsed To: Chandler Do MD Endorsed Time: 190 Pending: other (bed search) (Sam Matthew MD) Departure Departure Disposition: OTHER [facility] (ACUTE) Condition: Stable Clinical Impression Primary Impression: Depression Referrals: Casi Arnold DO (PCP/Family) Departure Forms: Customer Survey General Discharge Information Comments 09/26/17 The patient has superficial multiple linear lacerations to the right lateral thigh. No other injuries. She has had a tetanus shot within the last 10 years. Labs have been sent. She will be reevaluated by crisis. A sitter has been ordered. She will be signed out to Dr. Do at 11 PM. (Ian Romeo DO) Departure Comments PT SIGNED OUT TO DR. KIM AT 09/27/17, 7AM. (Ernestina WU,Chandler Flores) Critical Care Note Critical Care Note Critical Care Time: 30-74 min (Ian Romeo DO)
--- NOTE | 2017-09-27 14:28 | ED PSYCH CRISIS CONSULTATION ---
See Addendum Crisis Consult Basic Assessment Date of Consult: 09/27/17 Responsible Person/Accompanied By: self Insurance Authorization: Insurance #1: Insurance name: LUIS ENRIQUE TAFOYA Phone number: Policy number: [id number] Group number: Authorization number: ED Provider: Patient's ED Provider: Ian Romeo DO Primary Care Physician: Patient's PCP: Casi Arnold DO PCP's Current Psychiatrist: Most recently treated by Cathleen Josue in [place] Chief Complaint: Psychiatric Related Complaint Patient's Quote: "I was suicidal and depressed" Present Illness: Pt is a 22 year old single female presenting in the ED with worsening depression and suicidal ideation. Pt reports thoughts over the last week to kill herself by overdose. Pt also cut her thigh superficially with a razor. She reports the intent was to stop the pain not to kill herself. Pt reports she hasn 't cut since high school. Pt reports 1 previous suicide attempt several years ago in which she reported she overdosed. Pt states she was not in ICU and was not given Charcoal as the amount of pill she ingested was "not enough". Pt doesn 't remember what she took or how many pills she took. Pt reports she was not hospitalized and was referred to [facility]. Pt completed [facility] IOP and was unhappy with that experience. Pt was seen in [facility] ED by Crisis in December 2016 and patient was referred to [facility] which patient completed. Patient denies alcohol and drug use. Pt's BAL was zero and pt's urine drug screen was negative. It should be noted patient has several stressors in her life right now: pt's mother needs open heart surgery and may have cancer again; father is a "really bad diabetic"; pt has Lupus and Arthritis (see's a rhumatologist at [facility] who recently started her on Otezla which is making her nausous); and pt has plateued with her weight-loss which is emotionally difficult to handle. Pt shared that she had "the sleeve" weight loss surgery on July 05 2017. Pt reports she has lost approximatley 70-80 pounds since June. Pt reports she was being treated by Cathleen Josue APRN in [place] since she was 14 year old. Pt started with her in [place] and when prescriber re-located pt moved with patient to [place]. Pt reports she no longer sees Cathleen Josue and believes the office is closed. [facility] ([phone]) and was transferred to the [place] Office. Wall Scraper explained that Cathleen Josue is not longer with [facility] but the pt is still active. Crisis left a voicemail in order to speak with someone directly from the [place] Office. Pt was most recently prescribed Prozac, Tripletal, Trazodone, and Klonopin and has been on these medications for years. Pt is questioning if she has become "immune" to these medications. Pt reports she was given something from anxiety last night which she found helpful. In reviewing her chart, pt was given Ativan and has an order Q 4 hours for the Ativan. Crisis spoke to Patient's mother, Ingrid Corey [phone]. Mom reports patient hasn't been herself lately-she has been isolating and sleeping more. Mom described patient to have a flat affect yesterday when mom was bringing pt to the ED. Mom is worried about the pt. Crisis completed the C-SSRS. Patientr has the following risk factors: Lifetime suicide attempt by overdose; recent lost- prescriber left agency; current suicidal thoughts; chronic physical conditions, severe anxiety and access to Method for suicide (pills). Pt has the following protective factors: responsiblity to family/ living with family. Crisis consulted with Dr. King. Pt is agreeable to inpatient psychiatric treatment. Pt will either be a bed search or will be admitted to CPS later today if a bed becomes available. Patient's Address: [address] [place] [address] Other Who Do You Live With? Family Family/Informants Interviewed: crisis spoke to mother, Ingrid Corey see presenting illness section Allergies - Coded Allergies: cefaclor (Severe, ANAPHYLAXIS 12/11/16) Sulfa (Sulfonamide Antibiotics) (THROAT CLOSURE 12/11/16) Current Medications - Scheduled Medications Enoxaparin Sodium (Lovenox) 40 MG/0.4 ML SYRINGE 0.4 ML SC DAILY blood clot risk reduction #7 SYR Prescribed by Ingrid Reilly on 07/05/17 Famotidine (Pepcid) 20 MG TABLET 1 TAB PO BID abdominal pain #20 TAB Prescribed by Noemi Martinez on 08/08/17 Fluoxetine HCl (Prozac) 20 MG CAPSULE 3 CAP PO DAILY MENTAL HEALTH (Reported) Entered as Reported by Marcie Woody on 12/11/16 1742 Folic Acid 1 MG TABLET 1 TAB PO BID SUPPLEMENT (Reported) Entered as Reported by Marcie Woody on 11/10/15 195 Last Taken: 09/26/17 Nitrofurantoin Monohyd/M-Cryst (Macrobid 100 MG Capsule) 100 MG CAPSULE 1 CAP PO BID UTI #14 CAP Prescribed by Ian Barksdale MD on 07/25/17 Oxcarbazepine (Trileptal) 300 MG TABLET 2 TAB PO DAILY MENTAL HEALTH ( Reported) Entered as Reported by Marcie Woody on 02/13/15 230 Last Taken: 09/26/17 Oxcarbazepine 300 MG TABLET 3 TAB PO QPM MENTAL HEALTH (Reported) Entered as Reported by Jn Mackenzie on 02/14/17 1213 Last Taken: 09/26/17 Pantoprazole Sodium (Protonix) 40 MG TABLET.DR 1 TAB PO DAILY ulcer risk reduction #30 TAB Prescribed by Ingrid Reilly on 07/07/17 Last Taken: 09/26/17 Trazodone HCl 100 MG TABLET 2 TAB PO QPM SLEEP (Reported) Entered as Reported by Marcie Woody on 07/16/15 1649 Last Taken: 09/25/17 Scheduled PRN Medications Albuterol Sulfate (Proair Hfa) 90 MCG HFA.AER.AD 2 PUF INH Q4P PRN ASTHMA ( Reported) Entered as Reported by Marcie Woody on 11/10/14 1636 Last Taken: At an unknown date and time Clonazepam 0.5 MG TABLET 1 TAB PO TIDPRN PRN ANXIETY (Reported) Entered as Reported by Marcie Woody on 02/13/15 2304 Last Taken: 09/26/17 1200 Hydrocodone/Acetaminophen (Hycet 7.5 MG-325 MG/15 Ml Soln) 7.5 MG-325 MG/15 ML SOLUTION 15 ML PO Q4-6 PRN PRN pain control #200 ML Prescribed by Ingrid Reilly on 07/07/17 Last Taken: 09/26/17 Ondansetron (Zofran Odt) 4 MG TAB.RAPDIS 1 TAB SL TID PRN NAUSEA #10 TAB Prescribed by Thomas Holguin on 07/08/17 Phenazopyridine HCl (Pyridium) 200 MG TABLET 1 TAB PO TID PRN BLADDER SPASMS # 9 TAB Prescribed by Ian Barksdale MD on 07/25/17 Laboratory Results: Laboratory Tests 09/26/17 2255: Urine Opiates Screen < 100, Methadone Screen < 40, Barbiturate Screen < 60, Ur Phencyclidine Scrn < 6.00, Amphetamines Screen < 100, U Benzodiazepines Scrn < 85, Urine Cocaine Screen < 50, Urine Cannabis Screen < 5.00, Urine Test NEGATIVE 09/26/172055: Anion Gap 13, Estimated GFR > 60, BUN/Creatinine Ratio 14.3, Glucose 98, Calcium 9.7, Total Bilirubin 0.6, AST 22, ALT 44, Alkaline Phosphatase 70, Total Protein 8.1, Albumin 4.9, Globulin 3.2, Albumin/Globulin Ratio 1.5, CBC w Diff NO MAN DIFF REQ, RBC 4.58, MCV 85.2, MCH 28.3, MCHC 33.2, RDW 16.1 H, MPV 8.2, Gran % 58.9, Lymphocytes % 29.5, Monocytes % 7.6, Eosinophils % 2.9, Basophils % 1.1, Absolute Granulocytes 3.9, Absolute Lymphocytes 2.0, Absolute Monocytes 0.5, Absolute Eosinophils 0.2, Absolute Basophils 0.1, Serum Alcohol < 10.0 Past History Past Medical History Neurological: migraine EENT: allergies, L EYE BLIND Cardiovascular: NONE Respiratory: obstructive sleep apnea Gastrointestinal: GERD, irritable bowel syndrome, HERNIA GASTRIC SLEEVE JUN 2017 Hepatic: NONE Renal: nephrolithiasis, UTI Musculoskeletal: psoariatic arthritis, MRSA IN WOUND Psychiatric: anxiety, bipolar disease, depression Endocrine: obesity, LUPUS Blood Disorders: NONE Cancer(s): NONE 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 LAW SPECIALIST/Reproductive: OVARIAN CYST POLYCYSTIC OVARY SYNDROME Past Surgical History Surgical History: GASTRIC BYPASS SURGERY Psychosocial History Strengths/Capabilities: Pt is seeking help Physical Limitations (Interventions): none Psychiatric Treatment History Psych Treatment Psychiatric Treatment Yes Inpatient Treatment No Outpatient Treatment Yes Location of Treatment , [facility] Reason for Treatment mood disorder Dates of Treatment various, completed IOP fall 2016; current at [facility] Response to Treatment fair Diagnosis by History: Bipolar II Panic Disorder Substance Use/Abuse History Drug Use/Abuse Substances Used/Abused No Substance Abuse Treatment Substance Abuse Treatment Past Substance Abuse [place] No Current Mental Status Mental Status Orientation: Person, Place, Situation Affect: Appropriate Speech: WNL Neuro-vegetative: Anhedonia, Appetite Decreased, Energy Decreased, Helpless, Hypersomnia Appearance Appearance- Dress/Hygiene: pt presents in hospital attire. Pt has long red fingernails that appear recently done Behaviors Thought Process: WNL Thought Content: WNL Memory: WNL Insight: Fair SI/HI Risk Assessment Past Suicidal Ideation/Attempts Yes Current Suicidal Ideation/Att Yes Past Homicidal Ideation/Att: No Current Homicidal Ideation/Attempts No Degree of Intent: Thoughts/No Intent Danger To: Self Risk Factors: age (under 24/over 65), access to lethal means, high anxiety/ distress, history of suicide atmpts, poor impulse control, limited support Lethality Ratin PTSD Checklist PTSD Done? patient declined ED Management Sitter: Yes Restraints: No DSM5/PS Stressors/Medical Prob Diagnosis' (DSM 5, Stressors, Medical): F31.81 Bipolar II Disorder F41 Panic Disorder Stressors- Financial, Family medical issues Medical: Lupus, PCOS, psoratic arthritis, asthma, obsesity, sleep apena, seasonal allergies Current GAF: 25 Departure Disposition Psych Medical Clearance Date: 09/27/17 Medically Cleared at: 1200 Time Started: 1200 Time Ended: 1230 Psychiatrist Consulted: Dr. Delmis King Date Disposition Established: 09/27/17 Time Disposition Established: 1300 Plan for Disposition - Modality: Inpatient Psychiatry Facility: Bed Search Rationale for Disposition: Pt +SI and history of Suicide Attempt by overdose. Pt reports she has been thinking about killing herself for approximately 1 week and considered overdosing on her medication. Referrals Casi Arnold DO (PCP/Family)
--- NOTE | 2017-09-28 14:21 | IP CRISIS DIAG ASSESS PSYCH ---
Diagnostic Assessment Basic Assessment Insurance Authorization: Insurance #1: Insurance name: LUIS ENRIQUE TAFOYA Phone number: Policy number: [id number] Group number: Authorization number: Primary Care Physician: Patient's PCP: Casi Arnold DO PCP's Patient's Quote: "I was suicidal and depressed" Present Illness: Pt is a 22 year old single female presenting in the ED with worsening depression and suicidal ideation. Pt reports thoughts over the last week to kill herself by overdose. Pt also cut her thigh superficially with a razor. She reports the intent was to stop the pain not to kill herself. Pt reports she hasn 't cut since high school. Pt reports 1 previous suicide attempt several years ago in which she reported she overdosed. Pt states she was not in ICU and was not given Charcoal as the amount of pill she ingested was "not enough". Pt doesn 't remember what she took or how many pills she took. Pt reports she was not hospitalized and was referred to [facility]. Pt completed [facility] and was unhappy with that experience. Pt was seen in [facility] ED by Crisis in December 2016 and patient was referred to IOP which patient completed. Patient denies alcohol and drug use. Pt's BAL was zero and pt's urine drug screen was negative. It should be noted patient has several stressors in her life right now: pt's mother needs open heart surgery and may have cancer again; father is a "really bad diabetic"; pt has Lupus and Arthritis (see's a rhumatologist at [facility] who recently started her on Otezla which is making her nausous); and pt has plateued with her weight-loss which is emotionally difficult to handle. Pt shared that she had "the sleeve" weight loss surgery on July 05 2017. Pt reports she has lost approximatley 70-80 pounds since June. Pt reports she was being treated by Cathleen Josue APRN in [place] since she was 14 year old. Pt started with her in [place] and when prescriber re-located pt moved with patient to [place]. Pt reports she no longer sees Cathleen Josue and believes the office is closed. Crisis called [facility] ([phone]) and was transferred to the [place] Office. Ceramic Coater Machine explained that Cathleen Josue is not longer with [facility] but the pt is still active. Crisis left a voicemail in order to speak with someone directly from the [place] Office. Pt was most recently prescribed Prozac, Tripletal, Trazodone, and Klonopin and has been on these medications for years. Pt is questioning if she has become "immune" to these medications. Pt reports she was given something from anxiety last night which she found helpful. In reviewing her chart, pt was given Ativan and has an order Q 4 hours for the Ativan. Crisis spoke to Patient's mother, Ingrid Nicole [phone]. Mom reports patient hasn't been herself lately-she has been isolating and sleeping more. Mom described patient to have a flat affect yesterday when mom was bringing pt to the ED. Mom is worried about the pt. Crisis completed the C-SSRS. Patientr has the following risk factors: Lifetime suicide attempt by overdose; recent lost- prescriber left agency; current suicidal thoughts; chronic physical conditions, severe anxiety and access to Method for suicide (pills). Pt has the following protective factors: responsiblity to family/ living with family. Crisis consulted with Dr. King. Pt is agreeable to inpatient psychiatric treatment. Pt will either be a bed search or will be admitted to CPS later today if a bed becomes available. 09/28/17: Pt continues to endorse SI. Pt will be admited to CPS today. Consulted w/ Dr. Anaya. Pt signed in voluntarily. Patient's Address: [address] [place] [address] Other Who Do You Live With? Family Feel Safe Where You Live? Yes Marital Status: single Do You Have Children? No Primary Language? Zambian Language(s) Spoken At Home: Zambian Family/Informants Interviewed: crisis spoke to mother, Ingrid Nicole see presenting illness section Allergies - Coded Allergies: cefaclor (Severe, ANAPHYLAXIS 12/11/16) Sulfa (Sulfonamide Antibiotics) (THROAT CLOSURE 12/11/16) Current Medications - Scheduled Medications Enoxaparin Sodium (Lovenox) 40 MG/0.4 ML SYRINGE 0.4 ML SC DAILY blood clot risk reduction #7 SYR Prescribed by Ingrid Reilly on 07/05/17 Famotidine (Pepcid) 20 MG TABLET 1 TAB PO BID abdominal pain #20 TAB Prescribed by Noemi Martinez on 08/08/17 Fluoxetine HCl (Prozac) 20 MG CAPSULE 3 CAP PO DAILY MENTAL HEALTH (Reported) Entered as Reported by Marcie Woody on 12/11/16 1742 Folic Acid 1 MG TABLET 1 TAB PO BID SUPPLEMENT (Reported) Entered as Reported by Marcie Woody on 11/10/15 195 Last Taken: 09/26/17 Nitrofurantoin Monohyd/M-Cryst (Macrobid 100 MG Capsule) 100 MG CAPSULE 1 CAP PO BID UTI #14 CAP Prescribed by Ian Barksdale MD on 07/25/17 Oxcarbazepine (Trileptal) 300 MG TABLET 2 TAB PO DAILY MENTAL HEALTH ( Reported) Entered as Reported by Marcie Woody on 02/13/152304 Last Taken: 09/26/17 Oxcarbazepine 300 MG TABLET 3 TAB PO QPM MENTAL HEALTH (Reported) Entered as Reported by Jn Mackenzie on 02/14/17 1213 Last Taken: 09/26/17 Pantoprazole Sodium (Protonix) 40 MG TABLET.DR 1 TAB PO DAILY ulcer risk reduction #30 TAB Prescribed by Ingrid Reilly on 07/07/17 Last Taken: 09/26/17 Trazodone HCl 100 MG TABLET 2 TAB PO QPM SLEEP (Reported) Entered as Reported by Marcie Woody on 07/16/15 1649 Last Taken: 09/25/17 Scheduled PRN Medications Albuterol Sulfate (Proair Hfa) 90 MCG HFA.AER.AD 2 PUF INH Q4P PRN ASTHMA ( Reported) Entered as Reported by Marcie Woody on 11/10/14 1636 Last Taken: At an unknown date and time Clonazepam 0.5 MG TABLET 1 TAB PO TIDPRN PRN ANXIETY (Reported) Entered as Reported by Marcie Woody on 02/13/15 2304 Last Taken: 09/26/17 1200 Hydrocodone/Acetaminophen (Hycet 7.5 MG-325 MG/15 Ml Soln) 7.5 MG-325 MG/15 ML SOLUTION 15 ML PO Q4-6 PRN PRN pain control #200 ML Prescribed by Ingrid Reilly on 07/07/17 Last Taken: 09/26/17 Ondansetron (Zofran Odt) 4 MG TAB.RAPDIS 1 TAB SL TID PRN NAUSEA #10 TAB Prescribed by Thomas Holguin on 07/08/17 Phenazopyridine HCl (Pyridium) 200 MG TABLET 1 TAB PO TID PRN BLADDER SPASMS # 9 TAB Prescribed by Ian Barksdale MD on 07/25/17 Consequences of Psych Med Use: pt takes medications as prescribed-Prozac, Trileptal, Trazodone, and Klonopin Toxicology Screen Completed? Yes Results: negative Past History Past Medical History Medical History: Asthma, PCOS OVARIAN CYST DEPRESSION, ANXIETY OBESITY. lEFT EYE BLINDNESS Past Surgical History Surgical History EXPLORATORY LAPAROTOMY X3 OVARIAN CYST DRAINAGE X3 MOLE REMOVED UNDER ARM GASTRIC SLEEVE 2018, weight loss surgery- "sleeve" Abuse/Trauma History Trauma History/Current Trauma: Denies Legal History Current Legal Status: none Have you ever been arrested? No Pending Court Dates: none Psychosocial History Strengths/Capabilities: Pt is seeking help, patient likes group therapy Physical Limitations (Interventions): none Psychiatric Treatment History Psych Treatment Psychiatric Treatment Yes Inpatient Treatment No Outpatient Treatment Yes Location of Treatment , [facility] Reason for Treatment mood disorder Dates of Treatment various, completed IOP fall 2016; current at [facility] Response to Treatment fair Diagnosis by History: Bipolar II Panic Disorder Risk Factors: age (under 24/over 65), access to lethal means, high anxiety/ distress, history of suicide atmpts, poor impulse control, limited support Substance Use/Abuse History Drug Use/Abuse minimum 12mo Hx Substances Used/Abused No Substance Abuse Treatment Substance Abuse Treatment Past Substance Abuse [place] No Sexual History Sexually Active No Education History Highest Level of Education: high school/GED Current Mental Status Mental Status Orientation: Person, Place, Situation Affect: Appropriate Speech: WNL Neuro-vegetative: Anhedonia, Appetite Decreased, Energy Decreased, Helpless, Hypersomnia Appearance Appearance- Dress/Hygiene: pt presents in hospital attire. Pt has long red fingernails that appear recently done. Pt has showered in ED - good hygiene Behaviors Thought Process: WNL Thought Content: WNL Memory: WNL Insight: Fair SI/HI Risk Assessment - Minimum 6mo History- Past Suicidal Ideation/Attempts Yes Current Suicidal Ideation/Att Yes Past Homicidal Ideation/Att: No Current Homicidal Ideation/Attempts No Degree of Intent: Thoughts/No Intent Danger To: Self Risk Factors: age (under 24/over 65), access to lethal means, high anxiety/ distress, history of suicide atmpts, poor impulse control, limited support Lethality Ratin Needs/Init TX Plan/Goals: Eliminate Suicidal Thinking Increase social supports Medication Evaluation AUDIT-C Questionnaire: AUDIT-C Questionnaire: Response Value ETOH use in the past year Never 0 # drinks typical/day Doesn't Drink 0 6 or > drinks per occasion Never 0 Total 0 DSM5/PS Stressors/Medical Prob Diagnosis' (DSM 5, Stressors, Medical): F31.81 Bipolar II Disorder F41 Panic Disorder Stressors- Financial, Family medical issues Medical: Lupus, PCOS, psoratic arthritis, asthma, obsesity, sleep apena, seasonal allergies Current GAF: 25
[2017-09-28 16:29] VITALS: BP 124/67
[2017-09-28 19:56] VITALS: BP 114/66
[2017-09-29 07:47] VITALS: BP 103/59
--- NOTE | 2017-09-29 11:03 | SOCIAL WORKER SOCIAL HX PSYCH ---
Social History Basic Assessment Insurance Authorization: Insurance #1: Insurance name: [facility] Phone number: Policy number: [id number] Group number: Authorization number: Curr Source of Income/Entitlements: none Primary Care Physician: Patient's PCP: Casi Arnold DO PCP's Present Problem: Pt is a 22 year old single female presenting in the ED with worsening depression and suicidal ideation. Pt reports thoughts over the last week to kill herself by overdose. Pt also cut her thigh superficially with a razor. She reports the intent was to stop the pain not to kill herself. Pt reports she hasn 't cut since high school. Pt reports 1 previous suicide attempt several years ago in which she reported she overdosed. Pt states she was not in ICU and was not given Charcoal as the amount of pill she ingested was "not enough". Pt doesn 't remember what she took or how many pills she took. Pt reports she was not hospitalized and was referred to [facility]. Pt completed [facility] IOP and was unhappy with that experience. Pt was seen in [facility] ED by Crisis in December 2016 and patient was referred to IOP which patient completed. Patient denies alcohol and drug use. Pt's BAL was zero and pt's urine drug screen was negative. It should be noted patient has several stressors in her life right now: pt's mother needs open heart surgery and may have cancer again; father is a "really bad diabetic"; pt has Lupus and Arthritis (see's a rhumatologist at [place] who recently started her on Otezla which is making her nausous); and pt has plateued with her weight-loss which is emotionally difficult to handle. Pt shared that she had "the sleeve" weight loss surgery on July 05 2017. Pt reports she has lost approximatley 70-80 pounds since June. Pt reports she was being treated by Cathleen Josue APRN in [place] since she was 14 year old. Pt started with her in [place] and when prescriber re-located pt moved with patient to [place]. Pt reports she no longer sees Cathleen Josue and believes the office is closed. Crisis called [facility], ([phone]) and was transferred to the [place] Office. Tire Molder explained that Cathleen Josue is not longer with [facility] but the pt is still active. Crisis left a voicemail in order to speak with someone directly from the [place] Office. Pt was most recently prescribed Prozac, Tripletal, Trazodone, and Klonopin and has been on these medications for years. Pt is questioning if she has become "immune" to these medications. Pt reports she was given something from anxiety last night which she found helpful. In reviewing her chart, pt was given Ativan and has an order Q 4 hours for the Ativan. Crisis spoke to Patient's mother, Ingrid Nicole [phone]. Mom reports patient hasn't been herself lately-she has been isolating and sleeping more. Mom described patient to have a flat affect yesterday when mom was bringing pt to the ED. Mom is worried about the pt. Crisis completed the C-SSRS. Patientr has the following risk factors: Lifetime suicide attempt by overdose; recent lost- prescriber left agency; current suicidal thoughts; chronic physical conditions, severe anxiety and access to Method for suicide (pills). Pt has the following protective factors: responsiblity to family/ living with family. Crisis consulted with Dr. King. Pt is agreeable to inpatient psychiatric treatment. Pt will either be a bed search or will be admitted to CPS later today if a bed becomes available. 09/28/17: Pt continues to endorse SI. Pt will be admited to CPS today. Consulted w/ Dr. Anaya. Pt signed in voluntarily. Primary Language? Turkish Language(s) Spoken At Home: Turkish Living Situation Feel Safe Where You Are Living Yes Allergies - Coded Allergies: cefaclor (Severe, ANAPHYLAXIS 12/11/16) Sulfa (Sulfonamide Antibiotics) (THROAT CLOSURE 12/11/16) Current Medications - Scheduled Medications Enoxaparin Sodium (Lovenox) 40 MG/0.4 ML SYRINGE 0.4 ML SC DAILY blood clot risk reduction #7 SYR Prescribed by Ingrid Reilly on 07/05/17 Famotidine (Pepcid) 20 MG TABLET 1 TAB PO BID abdominal pain #20 TAB Prescribed by Noemi Martinez on 08/08/17 Fluoxetine HCl (Prozac) 20 MG CAPSULE 3 CAP PO DAILY MENTAL HEALTH (Reported) Entered as Reported by Marcie Woody on 12/11/16 1742 Folic Acid 1 MG TABLET 1 TAB PO BID SUPPLEMENT (Reported) Entered as Reported by Marcie Woody on 11/10/151956 Last Taken: 09/26/17 Nitrofurantoin Monohyd/M-Cryst (Macrobid 100 MG Capsule) 100 MG CAPSULE 1 CAP PO BID UTI #14 CAP Prescribed by Ian Barksdale MD on 07/25/17 Oxcarbazepine (Trileptal) 300 MG TABLET 2 TAB PO DAILY MENTAL HEALTH ( Reported) Entered as Reported by Marcie Woody on 02/13/15 2305 Last Taken: 09/26/17 Oxcarbazepine 300 MG TABLET 3 TAB PO QPM MENTAL HEALTH (Reported) Entered as Reported by Jn Mackenzie on 02/14/17 1213 Last Taken: 09/26/17 Pantoprazole Sodium (Protonix) 40 MG TABLET.DR 1 TAB PO DAILY ulcer risk reduction #30 TAB Prescribed by Ingrid Reilly on 07/07/17 Last Taken: 09/26/17 Trazodone HCl 100 MG TABLET 2 TAB PO QPM SLEEP (Reported) Entered as Reported by Marcie Woody on 07/16/15 1649 Last Taken: 09/25/17 Scheduled PRN Medications Albuterol Sulfate (Proair Hfa) 90 MCG HFA.AER.AD 2 PUF INH Q4P PRN ASTHMA ( Reported) Entered as Reported by Marcie Woody on 11/10/14 1636 Last Taken: At an unknown date and time Clonazepam 0.5 MG TABLET 1 TAB PO TIDPRN PRN ANXIETY (Reported) Entered as Reported by Marcie Woody on 02/13/15 2304 Last Taken: 09/26/17 1200 Hydrocodone/Acetaminophen (Hycet 7.5 MG-325 MG/15 Ml Soln) 7.5 MG-325 MG/15 ML SOLUTION 15 ML PO Q4-6 PRN PRN pain control #200 ML Prescribed by Ingrid Reilly on 07/07/17 Last Taken: 09/26/17 Ondansetron (Zofran Odt) 4 MG TAB.RAPDIS 1 TAB SL TID PRN NAUSEA #10 TAB Prescribed by Thomas Holguin on 07/08/17 Phenazopyridine HCl (Pyridium) 200 MG TABLET 1 TAB PO TID PRN BLADDER SPASMS # 9 TAB Prescribed by Ian Barksdale MD on 07/25/17 Consequences of Psych Med Use: Pt takes her medications as prescribed most days. She reports her mother helps her remember to take her medications as she forgets due to the diagnosis of lupus. Pt is unsure if her medications are working anymore. She is interested in a medication re-evaluation. 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 DCF Involvement? No Mother's Age (Current/): 42 Relationship w/Mother: good Father's Age (Current/): 49 Relationship w/Father: good Any Sibling(s)? Yes Sibling's Gender(s)/Age(s): female Sibling 1: (19) Relationship w/Sibling(s): very good Relationship w/Friends: 1 best friend, it's a good relationship Family Psych/Sub Abuse/Add Hx: drug of choice Number of Pregnancies: 0 Abuse/Trauma History Trauma History/Current Trauma: Denies History of Trauma/Abuse Treatment? No Legal History Current Legal Status: none Have you ever been arrested No Hx of Juvenile Legal Charges? No Hx of Adult Legal Charges? No Psychosocial History Primary Support System: father, mother, sibling(s) Strengths/Capabilities: Pt is seeking help, patient likes group therapy Physical Limitations (Interventions): pt reports she has memory difficulties due to lupus pt's chart indicates she has left eye blindness Last Physical: last year History of Seizures? No History of Blackouts? No ADL Limitations: Pt was born with left eye blindess, she does not report difficulties with ADLs [place]/Social/Peer Relations pt reports 1 best friend Meaningful Activities: shopping going to the beach Childhood Worship: Orthodox Current Holiness Affiliation: no roman catholic stated Is Spirituality Important to You? not really Patient's Ethnicity: Guinean, mix Cultural/Ethnic Issues: none Are There Developmental Issues? No Milestones Achieved: fine motor, gross motor Psychiatric Treatment History Psych Treatment Inpatient Treatment No Outpatient Treatment Yes Location of Treatment , [place], [facility] Reason for Treatment mood disorder Dates of Treatment various, completed IOP fall 2016; current at [facility] Response to Treatment fair Precipitating Factors: depression SI Current Radio Interference Trouble Shooter: Dr. Abdalla Diagnosis: Bipolar II Panic Disorder Psychodynamic Issues: Pt reports her parents were addicted to pain pills for half of her life so she was exposed to that. Pt reports she had a twin that in utero. Risk Factors: age (under 24/over 65), access to lethal means, high anxiety/ distress, history of suicide atmpts, poor impulse control, limited support Substance Use/Abuse History Drug Use/Abuse Substance Used/Abused No History Have You Ever Attended AA? No Do You Attend AA Currently? No Do You Have a Sponsor? No Sexual History Sexually Active No Education History Highest Level of Education: did not complete HS Highest Grade Completed: 9th Preferred Learning Style: visual, auditory, experiential HX of Learning Difficulties: pt reports she dropped out of school due to medical difficulties (lupus, arthritis and not related to left eye blindness or behavioral health reasons Barriers to Learning: left eye blindness Employment History Employment Unemployed No. of Jobs in Last 5 Years: 0 History Have You Been in The ? No Current Mental Status Mental Status Orientation: Person, Place, Situation Affect: Appropriate Speech: WNL Neuro-vegetative: Anhedonia, Appetite Decreased, Energy Decreased, Helpless, Hypersomnia Appearance Appearance- Dress/Hygiene: pt presents in hospital attire. Pt has long red fingernails that appear recently done. Pt has showered in ED - good hygiene Behaviors Thought Process: WNL Thought Content: WNL Memory: WNL Insight: Fair SI/HI Risk Assessment Past Suicidal Ideation/Attempts Yes Current Suicidal Ideation/Att Yes Past Homicidal Ideation/Att: No Current Homicidal Ideation/Attempts No Degree of Intent: Thoughts/No Intent Danger To: Self Lethality Ratin - Conclusion and Recommendations for treatment - and discharge planning Summary: This is the patient's first psychiatric admission. Pt has multiple medical issues that are comorbid with her mental health diagnoses. Pt would benefit from [facility] and community resources post discharge from [facility].
[2017-09-29 12:15] VITALS: BP 135/78
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
--- NOTE | 2017-09-29 15:41 | IP INCIDENTAL NOTE PSYCH ---
Incidental Note Notation: Patient requested a muscle relaxer. She had Flexeril in the past but there are potential interactions with some of her current medications. I added Baclofen 10 mg t.i.d.
[2017-09-29 16:01] VITALS: BP 139/73
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
--- NOTE | 2017-09-29 16:29 | History & Physical ---
General Information and HPI MD Statement: I have seen and personally examined RADHA HODGES and documented this H &P. The patient is a 22 year old F who presented with a patient stated chief complaint of depression/suicidal ideation. Source of Information: patient, old records Exam Limitations: no limitations History of Present Illness: The patient is a 22 yo female with h/o JUMANA, ?Lupus, bipolar disorder, asthma, irritable bowel, s/p gastric sleeve procedure (06/29), blind OS-congenital), who was admitted to [facility]/psychiatry after presenting in ED with thoughts of hurting herself- she had superficial cuts on right thigh along with older scars. At the time of my exam the patient was pleasant and cooperative. Had no specific complaints except some occasional lower pelvic pain (has h/o polycystic ovary disease). Allergies/Medications Allergies: Coded Allergies: cefaclor (Severe, ANAPHYLAXIS 12/11/16) Sulfa (Sulfonamide Antibiotics) (THROAT CLOSURE 12/11/16) Home Med list Albuterol Sulfate (Proair Hfa) 90 MCG HFA.AER.AD 2 PUF INH Q4P PRN ASTHMA ( Reported) Clonazepam 0.5 MG TABLET 1 TAB PO TIDPRN PRN ANXIETY (Reported) Enoxaparin Sodium (Lovenox) 40 MG/0.4 ML SYRINGE 0.4 ML SC DAILY blood clot risk reduction prescription filled pre-operatively Famotidine (Pepcid) 20 MG TABLET 1 TAB PO BID abdominal pain Fluoxetine HCl (Prozac) 20 MG CAPSULE 3 CAP PO DAILY MENTAL HEALTH (Reported) Folic Acid 1 MG TABLET 1 TAB PO BID SUPPLEMENT (Reported) Hydrocodone/Acetaminophen (Hycet 7.5 MG-325 MG/15 Ml Soln) 7.5 MG-325 MG/15 ML SOLUTION 15 ML PO Q4-6 PRN PRN pain control tylenol alternatively. do not combine Nitrofurantoin Monohyd/M-Cryst (Macrobid 100 MG Capsule) 100 MG CAPSULE 1 CAP PO BID UTI with food Ondansetron (Zofran Odt) 4 MG TAB.RAPDIS 1 TAB SL TID PRN NAUSEA Oxcarbazepine (Trileptal) 300 MG TABLET 2 TAB PO DAILY MENTAL HEALTH ( Reported) Oxcarbazepine 300 MG TABLET 3 TAB PO QPM MENTAL HEALTH (Reported) Pantoprazole Sodium (Protonix) 40 MG TABLET. 1 TAB PO DAILY ulcer risk reduction . Phenazopyridine HCl (Pyridium) 200 MG TABLET 1 TAB PO TID PRN BLADDER SPASMS Trazodone HCl 100 MG TABLET 2 TAB PO QPM SLEEP (Reported) Compliance With Home Meds: UNKNOWN Past History Travel History Traveled to [place] past 21 day No Medical History Neurological: migraine EENT: allergies, L EYE BLIND-congenital Cardiovascular: NONE Respiratory: HI OF SLEEP APNEA Gastrointestinal: GERD, irritable bowel syndrome, HERNIA GASTRIC SLEEVE JUN 2017 Hepatic: NONE Renal: nephrolithiasis, UTI Musculoskeletal: psoariatic arthritis, MRSA IN WOUND Psychiatric: anxiety, bipolar disease, depression Endocrine: obesity, LUPUS Blood Disorders: NONE Cancer(s): NONE 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 Ambulation: independent Employment History Employment Unemployed Review of Systems Review of Systems Constitutional: Denies: no symptoms. EENTM: Denies: no symptoms (BLIND OS). Cardiovascular: Denies: no symptoms. Respiratory: Denies: no symptoms. GI: Reports: see HPI, abdominal pain (MILD PELVIC PAIN). Denies: no symptoms. Musculoskeletal: Denies: no symptoms. Skin: Denies: no symptoms. Neurological/Psychological: Reports: anxiety, depressed, emotional problems. Hematologic/Endocrine: Denies: no symptoms. Immunologic/Allergic: Denies: no symptoms. Exam & Diagnostic Data Last 24 Hrs of Vital Signs/I&O Vital Signs Date Time Temp Pulse Resp B/P B/P Pulse O2 O2 Flow FiO2 Mean Ox Delivery Rate 09/29 1958 97.9 86 133/83 09/29 1601 88 139/73 09/29 1215 76 135/78 09/29 0747 98.0 93 103/59 Intake & Output 09/29 1600 09/29 0800 09/29 0000 Intake Total Output Total Balance Patient 261 lb Weight Physical Exam General Appearance Alert, Oriented X3, Cooperative, No Acute Distress Skin No Rashes, No Breakdown, No Significant Lesion HEENT Atraumatic, PERRLA, EOMI, Mucous Membr. moist/pink Neck Supple, No JVD, No thryomegaly, +2 Carotid Pulse wo Bruit, No LAD Cardiovascular Regular Rate, Normal S1, Normal S2, No Murmurs Lungs Clear to Auscultation, Normal Air Movement Abdomen Normal Bowel Sounds, Soft, No Tenderness, No Hepatospenomegaly, No Masses Neurological Exam Findings: Normal Gait, Normal Speech, Strength at 5/5 X4 Ext, Normal Tone, Sensation Intact, Cranial Nerves 3-12 NL, Reflexes 2+ Cranial Nerves II through XII: INTACT Extremities No Clubbing, No Cyanosis, Normal Pulses, No Tenderness/Swelling, TRACE EDEMA Vascular Normal Pulses, Pulses Symmetrical Last 24 Hrs of Labs/Carlos Eduardo: SEE ED NOTE Assessment/Plan Assessment: Impression/Plan: #Depression/Suicidal Ideation- as above, the patient was thinking of hurting herself by cutting right thigh (superficial). Plan: Admit to [facility]/Psychiatry. Meds as per psychiatry. #S/P Gastric Sleeve- has lost 50 lbs since surgery earlier in year. H/O MRSA in wound (healed). Plan: Continue to follow- maintain nutrition. #H/O Polycystic Ovaries- c/o mild pelvic pain that is chronic and secondary to this. Plan: Will follow. #H/O Asthma- lungs clear at present. Plan: Albuterol MDI prn. As Ranked By This Provider Problem List: 1. S/P laparoscopic sleeve gastrectomy 2. Depression 3. Asthma 4. Polycystic ovaries Miscellaneous Miscellaneous Documentation Attending Case Discussed With: Chandler Anaya MD Primary Care Physician: Casi Arnold DO Patient sees these Specialists NONE Level of Patient Care: [facility] Consults Needed: Consulting Physician: NONE Attending MD Review Statement Attending Statement Attending MD Statement: examined this patient, discussed with nursing, amended to note Attending Assessment/Plan: As above.
[2017-09-29 19:59] VITALS: BP 133/83
[2017-09-30 08:54] VITALS: BP 137/83
[2017-09-30 11:58] VITALS: BP 139/69
--- NOTE | 2017-09-30 14:18 | CP SOUTH PROGRESS NOTE PSYCH ---
Psych (Inpt) Progress Note Progress Note Include the following elements, when applicable: Involvement in the active treatment of the patient with behavioral observations of the patient and the patient's response to the treatment. Review of the ongoing treatment process in the context of the treatment plan. Indication of how multi-disciplinary staff members are carrying out the treatment plan. Plans for future interventions and recommendations for revision of the treatment plan. Liaison with other physicians/providers. Progress Note: Chart reviewed. Progress discussed with nursing staff. Interviewed patient this morning. Patient reports worsening abdominal pain due to known ovarian cysts. She was perseverative on options to deal with the pain. A review of Dr. Monet' kinesiology internship H&P from yesterday does not note her reporting severe pain, which I subsequently asked her about, and she says the pain wasn't that bad yesterday. WE discussed addition of high dose motrin and zofran as well as heat pack. She reports high level sof anxiety and poor mood without SI/HI or AVH. Denies known med SEs currently. Vitals and labs reviewed. Findings are: wnl. No evidence of SIRS. No new labs. Mental status exam: adequately groomed overweight CF who appears fairly comfortable, periodically seen ambulating around the unit. Pleasant and cooperative with good eye contact. Speech quiet, reserved. Mood "really anxious ". Affect dypsorhic, mildly labile. TP was perseverative, TC primarily pain related. Denies SI/HI. Denies percept distrubance. Cognition grossly intact. I/J somewhat limited. Assessment and plan: Seems to have developed abdominal pain that she relates to being secondary to an ovarian cyst. Says this is a common problem for her. Will try and treat conservatively as there does not seem to be any indication of sepsis or any red flag signs/symptoms. Otherwise, continue current medications as ordered by primary team and continue present management.
[2017-09-30 16:08] VITALS: BP 116/55
--- NOTE | 2017-09-30 18:40 | PN- Att Addend ---
Attending Addendum Attending Brief Note I was called to see this patient because she was complaining of left lower quadrant pain. Patient does have a history of PCOS. Patient has been complaining of this pain since earlier today. She claims that she vomited once. She also claims that she saw some blood in her stool. Vital Signs Date Time Temp Pulse Resp B/P B/P Pulse O2 O2 Flow FiO2 Mean Ox Delivery Rate 09/30 1608 87 116/55 09/30 1158 84 139/69 09/30 0854 98.4 71 137/83 09/29 1959 97.9 86 133/83 ON EXAM; AOX3, NAD. CV; S1,S2, RRR RESP; CLEAR ABD; SOFT, TENDER IN LLQ, BS+ EXT; NO EDEMA NO LABS TODAY A/P; 22 yo female with h/o JUMANA, ?Lupus, bipolar disorder, asthma, irritable bowel, s/p gastric sleeve procedure (06/29), blind OS-congenital) who is admitted to Inpatient Psychiatry with suicidal ideation. I was called to well with this patient for left lower quadrant abdominal pain. With history of PCO S, patient thinks that she might have had a cyst. She also reports multiple surgeries for these cysts. I have ordered CT abdomen and pelvis to rule out any ovarian torsion. I've also ordered stat CBC. I've also ordered stool for guaiac. If stool guaiac is positive or there is a drop in H&H then patient will require GI evaluation. I will order some oxycodone for pain control. The rest of the management will be per psychiatry.
[2017-09-30 20:01] VITALS: BP 142/68
--- NOTE | 2017-09-30 20:03 | CT SCAN REPORT ---
EXAMINATION: CT ABDOMEN AND PELVIS WITHOUT CONTRAST CLINICAL INFORMATION: Left lower quadrant abdominal pain with history of PCO S. COMPARISON: None TECHNIQUE: Multidetector volumetric imaging was performed from the superior aspect of the liver through the pubic symphysis. Sagittal and coronal reformatted images were obtained on the technologist's workstation. DLP: 1181.30 mGy-cm FINDINGS: LUNG BASES: Mild hypoventilatory changes of the dependent lungs bilaterally. LIVER, GALLBLADDER, AND BILIARY TREE: The liver is normal in size, shape, and attenuation. No focal hepatic lesion or biliary ductal dilatation is present. The gallbladder is unremarkable with no evidence of radiopaque gallstones, gallbladder wall thickening, or obvious pericholecystic inflammatory changes. PANCREAS: Unremarkable. SPLEEN: Unremarkable. ADRENAL GLANDS: Unremarkable. KIDNEYS AND URETERS: The kidneys are normal in size, shape, and attenuation. No hydronephrosis, hydroureter, or calculi seen. No perinephric stranding. BLADDER: Unremarkable. GASTROINTESTINAL TRACT: The small and large bowel are unremarkable. Postoperative changes along the greater curvature of the stomach. The appendix is normal. ABDOMINAL WALL: No significant hernia is appreciated. LYMPH NODES: Normal. VASCULAR: Unremarkable. PELVIC VISCERA: Stable appearance of the pelvic viscera. No prominent ovarian mass. There is trace pelvic free fluid likely physiologic. OSSEOUS STRUCTURES: Minimal degenerative changes of the visualized spine. IMPRESSION: Stable appearance of the abdomen and pelvis. No acute abdominal/pelvic pathology.
[2017-09-30 21:55] LABS: ABSOLUTE BASOPHIL COUNT 0 /CUMM (0.0-0.2); ABSOLUTE EOSINOPHIL COUNT 0.2 /CUMM (0.0-0.7); ABSOLUTE GRANULOCYTE CT 4.9 /CUMM (1.4-6.5); ABSOLUTE MONOCYTE COUNT 0.6 /CUMM (0.10-0.60); BASOPHIL % 0.5 % (0.0-2.0); EOSINOPHIL % 2.2 % (0-5); GRANULOCYTE % 64.2 % (42.2-75.2); HEMATOCRIT 36.3 % (37-47); MEAN CORPUSCULAR HGB 28.4 PG (27.0-31.0); MEAN CORPUSCULAR HGB CONC 33.5 G/DL (33.0-37.0); MEAN CORPUSCULAR VOLUME 84.7 FL (81.0-99.0); MEAN PLATELET VOLUME 8.6 FL (7.4-10.4); PLATELET COUNT 243 /CUMM (130-400); RBC DISTRIBUTION WIDTH 15.2 % (11.5-14.5); RED BLOOD CELL CT 4.29 /CUMM (4.20-5.40); WHITE BLOOD CELL COUNT 7.6 /CUMM (4.8-10.8)
[2017-10-01 07:42] VITALS: BP 110/58
--- NOTE | 2017-10-01 10:29 | CP SOUTH PROGRESS NOTE PSYCH ---
Psych (Inpt) Progress Note Progress Note Include the following elements, when applicable: Involvement in the active treatment of the patient with behavioral observations of the patient and the patient's response to the treatment. Review of the ongoing treatment process in the context of the treatment plan. Indication of how multi-disciplinary staff members are carrying out the treatment plan. Plans for future interventions and recommendations for revision of the treatment plan. Liaison with other physicians/providers. Progress Note: Chart reviewed. Progress discussed with nursing staff. Interviewed patient this morning. Was seen by hospitalist yesterday and had unremarkable CT abdomen. Says pain mildly improved. Received oxycodone 5 mg x 1 from hospitalist. Today feels mood improved, denies SI/HI or AVH. Denies med SEs. Vitals and labs reviewed. Findings are: wnl. No new labs. Yesterday's CT abd unremarkable, with no report of ovarian cyst. Mental status exam: adequately groomed overweight CF who appears fairly comfortable, periodically seen ambulating around the unit. Pleasant and cooperative with good eye contact. Speech quiet, reserved. Mood "its getting better". Affect somewhat anxious, mildly labile. TP was perseverative, TC primarily pain related. Denies SI/HI. Denies percept distrubance. Cognition grossly intact. I/J somewhat limited. Assessment and plan: REmains somewhat fixated on pelvic pain however no acute cause identified. HAve provided reassurance. Continue zofran, motrin, abd heating pad for today. Otherwise, continue current medications as ordered by primary team and continue present management.
[2017-10-01 12:10] VITALS: BP 109/51
[2017-10-01 16:28] VITALS: BP 111/59
[2017-10-01 19:52] VITALS: BP 120/65
[2017-10-02 07:51] VITALS: BP 126/69
[2017-10-02 12:13] VITALS: BP 132/77
--- NOTE | 2017-10-02 13:06 | SOCIAL WORKER PROG NOTE PSYCH ---
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 We explored a means to learn how to cope with "not getting you what you want without be coming impulsive and acting violent". Mom said her daughter was not having a good day, pt is fearful of leaving the hospital "too soon". Processed the effort it will take to learn coping skills, and how the IOP will be beneficial, pt agrees that IOP would be helpful. Pt and Mom have more questions about possibility of med changes. Explored how bariatric surgery and self image and impact self esteem and mood.
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
[2017-10-02 15:50] VITALS: BP 144/89
--- NOTE | 2017-10-02 19:28 | SOCIAL WORKER PROG NOTE PSYCH ---
Social Work Progress Note Progress Note The services requested require additional review. You will be contacted regarding the status of this request if further information is needed. An authorization decision will be made within the required timeframes and details of that decision may be found under the member's authorization history. Member Name Member ID Member Subscriber Name Subscriber ID RADHA HODGES [id number] 1995 RADHA DykesANGÉLICA [id number] Pended Authorization # Client Authorization # Type of Request [id number] CONCURRENT Date of Admission/ Start of Services Requested From Submission Date 09/28/2017 10/02/2017 10/02/2017 Level of Service Type of Service Level of Care Type of Care INPATIENT/[facility]IENT [facility] Reason Code [id number] Provider Name & Address Provider ID Provider Alternate ID NPI # for Authorization RAJEEV RICHARDS [address] [place] [id number]
[2017-10-02 20:04] VITALS: BP 141/76
[2017-10-03 07:36] VITALS: BP 121/74
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
[2017-10-03 12:10] VITALS: BP 131/94
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
[2017-10-03 15:57] VITALS: BP 135/71
[2017-10-03 20:12] VITALS: BP 133/93
[2017-10-04 07:49] VITALS: BP 136/79
--- NOTE | 2017-10-04 09:48 | SOCIAL WORKER PROG NOTE PSYCH ---
Social Work Progress Note Progress Note Completed transfer summary faxed to [facility].
[2017-10-04 12:16] VITALS: BP 141/71
--- NOTE | 2017-10-04 13:40 | CP SOUTH PROGRESS NOTE PSYCH ---
Psych (Inpt) Progress Note Progress Note Include the following elements, when applicable: Involvement in the active treatment of the patient with behavioral observations of the patient and the patient's response to the treatment. Review of the ongoing treatment process in the context of the treatment plan. Indication of how multi-disciplinary staff members are carrying out the treatment plan. Plans for future interventions and recommendations for revision of the treatment plan. Liaison with other physicians/providers. Progress Note: Case and treatment plan discussed in team meeting. Staff indicates that the patient reported suicidal ideation without plan. Flirtatious with a male peer on the unit. Reporting she is anxious. Patient seen at 10:48 AM. She was in focus group prior to meeting with me in office. States she is okay. Reports Neurontin prn helping with anxiety and we will now add standing Neurontin. Worried about potential for withdrawal from Prozac. I explained to her that Prozac has a long half-life and I tried to reassure her. Affect is calm and euthymic. Rates sad mood like 7/10 and anxiety like a 9/10. Reports she is having nausea. Feels hopeless a little bit. Denies feeling helpless. Feels worthless. Feeling less guilty lately. Reports suicidal ideation but it is a little bit diminished. Gives a safety promise for here. Denies homicidal ideation. Denies auditory and visual hallucinations and paranoid ideation. Reports that she slept-in until 7 AM, indicating that she slept well. Appetite is less than usual. Feels tired. Tolerating current medications well, without complaint. IMPRESSION: Slow progress. Continue present treatment plan. We will try to have additional family meeting(s) with mother. Anticipate possible discharge tomorrow to home with referral to IOP. Monitor response to recent change in SSRI from Prozac to Zoloft 25 mg daily and to addition of standing Neurontin 300 mg 3 times daily.
[2017-10-04 16:03] VITALS: BP 142/86
--- NOTE | 2017-10-04 16:16 | SOCIAL WORKER PROG NOTE PSYCH ---
Social Work Progress Note Progress Note Yoana was active in groups today. Attended accupuncture and met with me right after. She talked about how much she enjoys accupuncture and holistic approaches such as meditation and aromatherapy. We talked about incorporating those types of coping activities back into her daily routine. She was doing some of that and has gotten away from it. She reported a reduction in her anxiety today rating it at a 6 (0-10, 10 being most severe) this afternoon. When asked about suicidal thoughts today, she said they were less. She is complaining of pain coming from her kidneys today. She shared this with nursing during our meeting. Talked about having her Mom in for another meeting. She was open to doing that. She talked about how she often gets consumed by others emotional stuff and that she worries alot about her family. She said she has to learn how to not take on others issues. Talked about her discharge for tomorrow. She stated she is hoping to feel as good as she does today, but stated she will have to see how things are tomorrow. I told her that I was putting her in for an IOP intake at 1:15 and we will try and meet with her Mom tomorrow morning and see how things are at that point. Called Yoana's Mother and scheduled a meeting for tomorrow at 10:30a.
[2017-10-04 20:00] VITALS: BP 150/81
[2017-10-05 07:42] VITALS: BP 140/84
--- NOTE | 2017-10-05 11:31 | SOCIAL WORKER PROG NOTE PSYCH ---
Social Work Progress Note Progress Note Yoana's Mother came in for a 10:30am family meeting today. Dr. Anaya was in attendance at this meeting as well as Analilia (medical student). Yoana said she was not having a good day today. She was having left over feelings from an incident that occurred on the unit last night with nursing. Mom shared that this incident was in front of her and her other daughter and that she didn't feel the nurse was appropriate. Issues raised were around confidentiality and being invalidating around her medical issues. Mom would like to discuss the issue further with the clinical nursing student. We let her know we would arrange that. Aside from this concern. Yoana shared that she is hoping to feel well enough to go tomorrow. I told her that we are hoping to help her feel safe enough to go. Told her that Patricia (IOP coordinator at [facility]) would likely see her today to help with the transition. She seemed to feel good about that. I also reviewed her safety plan with her. We talked about how in the future she may want to look at DBT therapy. She has a hard time regulating emotions and could work on some distress tolerance. Talked about the importance of continued therapy, as Mom and her thought she was doing well when she was going for individual therapy weekly. Yoana feels positive about starting IOP. Looking for her to discharge tomorrow to IOP intake if one is available. Mom will pick her up after that.
[2017-10-05 12:16] VITALS: BP 141/85
--- NOTE | 2017-10-05 14:25 | CP SOUTH PROGRESS NOTE PSYCH ---
Psych (Inpt) Progress Note Progress Note Include the following elements, when applicable: Involvement in the active treatment of the patient with behavioral observations of the patient and the patient's response to the treatment. Review of the ongoing treatment process in the context of the treatment plan. Indication of how multi-disciplinary staff members are carrying out the treatment plan. Plans for future interventions and recommendations for revision of the treatment plan. Liaison with other physicians/providers. Progress Note: Case and treatment plan discussed in team meeting. Staff reports that the patient was somewhat provocative in that she said she would be suicidal if she did not get the right pain medication. Requested a urinalysis. Family meeting was scheduled for 10:30 AM. Patient seen with medical student at 10 AM. Reports she has pain in her kidney. Reports urinary hesitancy and requests a urinalysis. I ordered this. Reports some constipation. I ordered Colace 100 mg twice daily and milk of magnesia once. Reports mood is depressed and states she feels really suicidal. States she did not get any sleep last night. States she tossed and turned because of pain. She thinks she will be ready to go tomorrow. Patient seen again at 10:35 a.m. in the context of family meeting with mother, social problems specialist and medical student. Patient reports acupuncture helped yesterday. Reports she had a hard night's sleep. Reports she just feels really depressed today about everything. Reports her PCP is Casi Arnold DO and she goes for lupus treatment to [facility]. MAINTENANCE CONTROLLER is Sendy Rivas CNM. IMPRESSION: Slow progress. Continue present treatment plan. We continue to encourage patient to work on a safety plan for discharge. Discharge is anticipated for tomorrow to [facility] then to home and family.
[2017-10-05 16:07] VITALS: BP 139/91
[2017-10-05 20:15] VITALS: BP 134/87
[2017-10-06 07:20] VITALS: BP 132/72
[2017-10-06] MEDS ORDERED: OTEZLA30 M2 PO (10:35)
[2017-10-06] MEDS ORDERED: IBUPROFEN800 M1 PO (10:38)
[2017-10-06] MEDS ORDERED: ONDANSETRON ODT4 M1 PO (10:38)
[2017-10-06] MEDS ORDERED: TRILEPTAL300 M1 PO (10:38)
[2017-10-06] MEDS ORDERED: CIPRO500 M1 PO (10:38)
[2017-10-06] MEDS ORDERED: SERTRALINE HCL25 MG PO (10:38)
[2017-10-06] MEDS ORDERED: GABAPENTIN300 M2 PO (10:38)
[2017-10-06] MEDS ORDERED: DOCUSATE SODIU100 M3 PO (10:38)
[2017-10-06] MEDS ORDERED: BACLOFEN10 M1 PO (10:38)
[2017-10-06] MEDS ORDERED: OMEPRAZOLE20 M2 PO (10:38)
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
--- NOTE | 2017-10-06 11:04 | SOCIAL WORKER PROG NOTE PSYCH ---
Social Work Progress Note Progress Note Dr. Anaya and I met with Yoana together this morning. She was smiling. Stated she was excited/ anxious to go home today. She misses her family. She reports feeling a "little" depressed today and anxious. She said her suicidal thoughts have lessened. She reports having no active plan to hurt herself and plans to reach out to her Mom if she was having a difficult time. She was also encouraged to call 911. Encouraged her to get working on her safety plan. She said she is going to be looking at ways to incorporate meditation. She was confirmed to have a UTI last night with the urinalysis that was done. She is starting antibiotics. Encouraged her to follow up with her PCP Dr. Arnold. She said she would be scheduling an appt. Mom will pick her up at 1pm today and go with her to her 1:15pm appt. at [facility] Gave her a packet of DBT providers information to review.
[2017-10-06 12:12] VITALS: BP 138/84
--- NOTE | 2017-10-06 13:19 | SOCIAL WORKER PROG NOTE PSYCH ---
Social Work Progress Note Faxed Referral(s) Referred To: [facility] Transition of Care Documents sent: Health Summary Faxed to: [facility] Fax #: [phone] Faxed by: Delfina Worthy Date faxed: 10/06/17 Time Faxed: [phone]
--- NOTE | 2017-10-06 15:04 | CP SOUTH PROGRESS NOTE PSYCH ---
Psych (Inpt) Progress Note Progress Note Include the following elements, when applicable: Involvement in the active treatment of the patient with behavioral observations of the patient and the patient's response to the treatment. Review of the ongoing treatment process in the context of the treatment plan. Indication of how multi-disciplinary staff members are carrying out the treatment plan. Plans for future interventions and recommendations for revision of the treatment plan. Liaison with other physicians/providers. Progress Note: Case and treatment plan discussed in team meeting. Staff reports that the patient is denying suicidal ideation. Had a good day. Attended AA. Social with peers. Patient was found to have a UTI and was started on Cipro. Patient seen with Delfina, social group worker and with medical student at 10:04 AM. Patient apparently met with Eunice from [facility] yesterday. Patient is excited to be going home. Affect is calm and euthymic. She is smiling. Feels that family meeting yesterday went well. Reports mood is okay but states she is a tiny bit depressed but also indicates that is normal for her. Rates sad mood about 5/10 and anxiety about 8/10, stating that she is nervous to leave. Denies feeling hopeless, helpless or guilty. Does feel worthless. Reports she has suicidal ideation "maybe a little bit, not as bad as before." Denies suicide plan and denies suicide intent. She is able to give a safety promise. Denies homicidal ideation. Denies auditory and visual hallucinations and paranoid ideation. States she slept okay but was awakened for a bladder scan. Appetite was not too good because she took her morning medications before breakfast. States she received Zofran and did not vomit. Energy: feels a little tired but has more energy. Excited to go see her family. Tolerating medications well. Feels ready and safe for discharge. Patient was advised to see Dr. Arnold for follow- up. IMPRESSION: Condition improved. Okay for discharge today to [facility] intake then to home and family.
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
== END 2017-10-06 13:20 | DRG 753 ==
LOC: ERH 20:39 → CP SOUTH 09-28 13:08 → ERHI 09-28 13:08 → CP SOUTH 09-28 16:09
PROVIDERS: Hospitalist; Physician Assistant Medical
DX: F31.81 Bipolar II disorder (principal); E66.3 Overweight; Z98.84 Bariatric surgery status; L98.9 Disorder of the skin and subcutaneous tissue, unspecified; N39.0 Urinary tract infection, site not specified; G47.33 Obstructive sleep apnea (adult) (pediatric); H54.62 Unqualified visual loss, left eye, normal vision right eye
CPT/HCPCS: 36415; 74176; 80307; 81001; 81025; 90832; G0463; G0480; J0515; J1630; J3101; J3490

== ENCOUNTER 2017-10-18 15:01 | Emergency (ER) | payer OTHER ==
[~2017-10-18] VITALS: Ht 162.6 cm; Wt 117.5 kg
[~2017-10-18 15:01] MED LIST changes: +BACLOFEN10 M1 PO; +CIPRO500 M1 PO; +DOCUSATE SODIU100 M3 PO; +GABAPENTIN300 M2 PO; +OMEPRAZOLE20 M2 PO; +ONDANSETRON ODT4 M1 PO; +OTEZLA30 M2 PO; +SERTRALINE HCL25 MG PO
[2017-10-18 15:04] VITALS: BP 123/82
--- NOTE | 2017-10-18 15:06 | ED UPPER/LOWER EXTREMITY COMPL ---
History of Present Illness General Chief Complaint: Upper Extremity Injury Stated Complaint: RT ARM PAIN S/P FALL 2 DAYS AGO Source: patient Exam Limitations: no limitations Vital Signs & Intake/Output Vital Signs & Intake/Output Vital Signs Date Time Temp Pulse Resp B/P B/P Pulse O2 O2 Flow FiO2 Mean Ox Delivery Rate 10/18 1529 Room Air 10/18 1504 98.5 89 20 123/82 98 Room Air Allergies Coded Allergies: cefaclor (Severe, ANAPHYLAXIS 12/11/16) Sulfa (Sulfonamide Antibiotics) (THROAT CLOSURE 12/11/16) Triage Note: FELL DOWN A FEW STAIRS ON MONDAY INJURING RIGHT ARM. TAKING MOTRIN FOR PAIN WITHOUT RELIEF Triage Nurses Notes Reviewed? yes Onset: Abrupt Duration: constant Timing: single episode today Severity: moderate Severity Numbers: 5 Pain/Injury Location: Right: Shoulder, Elbow. : No Patient currently breastfeeds: No HPI: Patient is a 22-year-old female who presents emergency room with concerns of a trip and fall down a few stairs yesterday where she grabbed the handrail and had acute onset of right shoulder and elbow pain due to a fall where patient also complains of direct trauma to the right shoulder and elbow. Patient has bruising to the area. Denies any head strike neck or back pain or wrist pain. Patient took ibuprofen yesterday with mild relief of symptoms. (Javi Parker) Reconcile Medications Albuterol Sulfate (Proair Hfa) 90 MCG HFA.AER.AD 2 PUF INH Q4P PRN ASTHMA ( Reported) Apremilast (Otezla) 30 MG TABLET 1 TAB PO BID psoriatic arthritis (Reported) Clonazepam 0.5 MG TABLET 1 TAB PO TIDPRN PRN ANXIETY (Reported) Gabapentin 300 MG CAPSULE 1 CAP PO TID off-label for anxiety Ibuprofen 800 MG TABLET 1 TAB PO Q8P PRN mild-sev pain (1-9) Meloxicam (Mobic) 15 MG TABLET 1 TAB PO DAILY PAIN/INFLAMMATION Oxcarbazepine (Trileptal) 300 MG TABLET 3 TAB PO BID off-label for bipolar 2 d /o Sertraline HCl 50 MG TABLET 1 TAB PO DAILY MENTAL HEALTH (Reported) Trazodone HCl 100 MG TABLET 2 TAB PO QPM SLEEP (Reported) (Ian Romeo DO) Past History Travel History Traveled to [place] past 21 day No Medical History Any Pertinent Medical History? 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 No (Javi Parker) Review of Systems Review of Systems Constitutional: Reports: no symptoms. EENTM: Reports: no symptoms. Respiratory: Reports: no symptoms. Cardiovascular: Reports: no symptoms. Gastrointestinal/Abdominal: Reports: no symptoms. Genitourinary: Reports: no symptoms. Musculoskeletal: Reports: see HPI. Skin: Reports: no symptoms. Neurological/Psychological: Reports: no symptoms. Hematologic/Endocrine: Reports: no symptoms. Immunological: Reports: no symptoms. All Other Systems: Reviewed and Negative (Javi Parker) Physical Exam Physical Exam General Appearance: no apparent distress, comfortable, obese Head: atraumatic Eyes: Bilateral: normal appearance. Ears, Nose, Throat: normal pharynx, normal ENT inspection, hearing grossly normal Neck: normal inspection, full range of motion, no midline tenderness Cardiovascular/Respiratory: normal breath sounds, no respiratory distress Peripheral Pulses: 2+ radial (R) Back: normal inspection, no vertebral tenderness Neurologic/Tendon: normal sensation, normal motor functions, normal tendon functions, responds to pain, no evidence tendon injury, no pulse deficit Skin: intact Comments: Right shoulder generalized point tenderness noted full active range of motion noted Right elbow mild ecchymosis noted to medial epicondyle full active range of motion noted mild point tenderness noted Right wrist normal inspection nontender (Javi Parker) Progress Differential Diagnosis: arterial insufficiency, compartment syndrome, contusion, dislocation, DVT, fracture, gout, septic arthritis, sprain, tendon injury Plan of Care: Orders Procedure Date/time Status XRY-SHOULDER COMPLETE-RIGHT 10/18 1521 Active XRY-ELBOW 3 OR MORE VIEWS, R 10/18 1521 Active Patient's right upper extremity was neurovascularly intact, x-rays resulted no osseous injury. Discussed x-ray results with patient. Diagnostic Imaging: Viewed by Me: Radiology Read. Radiology Impression: no acute abnormality, no fracture Comments: PATIENT: RADHA HODGES PRESENT AGE: 22 PATIENT ACCOUNT NO: [id number] : 94 LOCATION: [facility] ORDERING PHYSICIAN: Javi BAKER SERVICE DATE: 10/18/17 EXAM TYPE: RAD - XRY-ELBOW 3 OR MORE VIEWS, R; XRY-SHOULDER COMPLETE-RIGHT EXAMINATION: XRY-SHOULDER COMPLETE-RIGHT, XRY-ELBOW 3 OR MORE VIEWS, R CLINICAL INFORMATION: Trauma and subsequent pain in the shoulder and elbow COMPARISON: None recent TECHNIQUE: 4 views of the right elbow and 4 views of the right shoulder. FINDINGS: Right elbow: Negative for fracture, joint effusion, or dislocation. The soft tissues are normal. Left shoulder: The bones and soft tissues are normal. No fracture. Glenohumeral and acromioclavicular alignment is anatomic with normal joint space. No abnormal soft tissue calcifications. IMPRESSION: Exams negative for fracture or dislocation. DICTATED BY: Didier Tanner MD DATE/TIME DICTATED:10/18/171554 PLASTICS PRODUCTION MACHINE OPERATOR:DAVID DATE/TIME TRANSCRIBED:10/18/17 (Javi Parker) Departure Departure Disposition: HOME OR SELF CARE Condition: Stable Clinical Impression Primary Impression: Right shoulder strain Secondary Impressions: Contusion of right elbow Referrals: Casi Arnold DO (PCP/Family) Andrey Sarabia MD Additional Instructions: As discussed begin icing the area directly 20 minutes every 2 hours, begin the prescription of meloxicam for pain and inflammation, if no better in one week follow-up with orthopedic Dr. Sarabia. If symptoms worsen return to emergency room Prescriptions waiting at [facility] Departure Forms: Customer Survey General Discharge Information Prescriptions: Current Visit Scripts Meloxicam (Mobic) 1 TAB PO DAILY #10 TAB (Javi Parker) PA/OIL PUMPER Co-Sign Statement Statement: ED Attending supervision documentation- [] I saw and evaluated the patient. I have also reviewed all the pertinent lab results and diagnostic results. I agree with the findings and the plan of care as documented in the PA's/OIL PUMPER's documentation. [x] I have reviewed the ED Record and agree with the PA's/OIL PUMPER's documentation. [] Additions or exceptions (if any) to the PAs/OIL PUMPER's note and plan are summarized below: [] (Ian Romeo DO)
[2017-10-18] MEDS ORDERED: SERTRALINE HCL50 MG PO (15:16)
--- NOTE | 2017-10-18 16:00 | RADIOLOGY REPORT ---
EXAMINATION: XRY-SHOULDER COMPLETE-RIGHT, XRY-ELBOW 3 OR MORE VIEWS, R CLINICAL INFORMATION: Trauma and subsequent pain in the shoulder and elbow COMPARISON: None recent TECHNIQUE: 4 views of the right elbow and 4 views of the right shoulder. FINDINGS: Right elbow: Negative for fracture, joint effusion, or dislocation. The soft tissues are normal. Left shoulder: The bones and soft tissues are normal. No fracture. Glenohumeral and acromioclavicular alignment is anatomic with normal joint space. No abnormal soft tissue calcifications. IMPRESSION: Exams negative for fracture or dislocation.
[2017-10-18] MEDS ORDERED: MOBIC15 M1 PO (16:17)
== END 2017-10-18 16:25 ==
LOC: ERH 15:01
DX: S46.911A Strain of unspecified muscle, fascia and tendon at shoulder and upper arm level, right arm, initial encounter (principal); S50.01XA Contusion of right elbow, initial encounter; W10.9XXA Fall (on) (from) unspecified stairs and steps, initial encounter; Y92.9 Unspecified place or not applicable; Y93.9 Activity, unspecified
CPT/HCPCS: 73030-RT; 73080-RT